=== PATIENT | female | born 1935 | race Caucasian/White ===

== ENCOUNTER 2017-05-15 22:51 | Inpatient (IN) | payer OTHER ==
[~2017-05-15] VITALS: Ht 167.6 cm; Wt 88.0 kg
[2017-05-15] MEDS ORDERED: SODIUM CHLORIDE 0.9% 1000ML 1,000 ML IV STA (23:11)
[2017-05-15] MEDS ORDERED: HYDROmorphone INJ 0.5 MG/0.5 ML SYR IV PRN (23:15)
[2017-05-15 23:28] LABS: BASO % 0.1 %; BASO ABS # 0.02 K/uL (0-0.2); EOS % 0.4 %; EOS ABS # 0.05 K/uL (0-0.5); HEMATOCRIT 42.3 % (37-47); HEMOGLOBIN 14.4 g/dL (12.0-16.0); IG# 0.04 K/uL (0.00-0.02); LYMPH % 16.1 %; LYMPH ABS # 2.27 K/uL (1.2-3.4); MEAN CELL VOLUME 98.8 fL (80-100); MEAN CORPUSCULAR HEMOGLOBIN 33.6 pg (25-34); MEAN PLATELET VOLUME 11.6 fL (7.4-10.4); MONO % 4.4 %; MONO ABS # 0.62 K/uL (0.11-0.59); NEUT % 78.7 %; PLATELET COUNT 173 K/uL (130-400); RED CELL DISTRIBUTION WIDTH CV 14.2 % (11.5-14.5); RED CELL DISTRIBUTION WIDTH SD 50.6 fL (36.4-46.3)
[2017-05-15 23:43] LABS: INR 1.1 (0.9-1.1)
[2017-05-15 23:53] LABS: BLOOD UREA NITROGEN 20 mg/dl (7-18); CALCIUM 9.4 mg/dl (8.5-10.1); CARBON DIOXIDE 24 mmol/L (21-32); CREATININE 1.29 mg/dl (0.60-1.20); GLUCOSE 118 mg/dl (70-99); POTASSIUM 4.1 mmol/L (3.5-5.1); SODIUM 141 mmol/L (136-145)
[2017-05-15 23:58] LABS: CKMB 1.8 ng/ml (0.5-3.6)
[2017-05-16] VITALS (7 sets, daily range): BP systolic 92–132; BP diastolic 56–80; PULSE 61–77; TEMP 36.5–36.9; O2SAT 95–99; Ht 167.6 cm; Wt 88.0 kg
--- NOTE | 2017-05-16 00:05 | EMERGENCY ROOM VISIT NOTE ---
History Report prepared by Eugene: Sridhar Anderson Under the Supervision of: Dr. Rui Horowitz M.D. First contact with patient: 22:58 Stated Complaint: FALL, L HIP PAIN History of Present Illness The patient is a 82 year old female who presents to the Emergency Room by EMS with complaints of constant left hip pain s/p fall occurring five hours ago. The patient rates her current pain as a 5/10 in severity (after being given Fentanyl en route). She states that she was unable to crawl to her phone until shortly prior to arrival. She notes that she has a history of double knee replacements, but has not had surgery on her hips before. The patient did not hit her head or lose consciousness during the fall. She denies any headache, neck or shoulder pain. She notes that she hit her left elbow on the fall as well , and then used her elbows to crawl to the phone after the fall. The patient states that her elbows feel "sore". Her most recent meal was 9 hours ago. She is not on any blood thinners. Source of History: patient Onset: Five hours ago Position: other (left hip) Symptom Intensity: 5/10 Timing: constant Associated Symptoms: No LOC, No headache, No neck pain Note: The patient denies any shoulder pain. She also complains of bilateral elbow pain. Review of Systems See HPI for pertinent positives & negatives. A total of 10 systems reviewed and were otherwise negative. Past Medical & Surgical Medical Problems: (1) Depression (2) Dyslipidemia (3) HTN (hypertension) (4) Sciatica Surgical Problems: (1) Knee joint replacement status Family History No pertinent family history stated. Social History Housing Status: lives alone Occupation Status: retired Current/Historical Medications Scheduled Aspirin (Aspirin Ec), 81 MG PO DAILY Atenolol (Tenormin), 25 MG PO BID Atorvastatin (Lipitor), 40 MG PO DAILY Esomeprazole Magnesium (Nexium), 20 MG PO DAILY Isosorbide Mononitrate Ext Rel (Imdur Ext Rel), 30 MG PO BID Raloxifene Hcl (Evista), 60 MG PO DAILY Scheduled PRN Doxepin (Sinequan), 25-50 MG PO HS PRN for Insomnia Melatonin (Melatonin Maximum Strengt), 1 TAB PO HS PRN for Sleep Allergies Coded Allergies: No Known Allergies (Unverified , 05/16/17) Physical Exam Vital Signs Date Time Temp Pulse Resp B/P (MAP) Pulse Ox O2 Delivery O2 Flow Rate FiO2 05/15/17 23:50 77 18 128/73 93 Nasal Cannula 2.0 05/15/17 23:33 86 18 132/81 90 Room Air 05/15/17 23:02 37.6 85 159/90 88 Room Air 05/15/17 23:01 93 Nasal Cannula 2.0 Physical Exam GENERAL: Patient is well appearing and in minimal distress. HEENT: No acute trauma, normocephalic atraumatic, mucous membranes moist, no nasal congestion, no scleral icterus. NECK: No stridor, no adenopathy, no meningismus, trachea is midline. LUNGS: No dyspnea. Clear to auscultation and equal bilaterally. No wheeze, no rhonchi. HEART: Regular rate and rhythm. No murmurs, rubs, gallops appreciated. ABDOMEN: Soft, nontender, bowel sounds positive, no masses appreciated, no peritonitis. BACK: No midline tenderness, no CVA tenderness EXTREMITIES: Shortened, and mildly externally rotated left leg. Severe pain with ROM of the left hip. Distal neurovascular exam intact. Pressure bruising over bilateral elbows. NEUROLOGIC: Alert and oriented, no acute motor or sensory deficits, no focal weakness, cranial nerves grossly intact. SKIN: No rash, no jaundice, no diaphoresis. Medical Decision & Procedures ER Provider Diagnostic Interpretation: X ray results are stated below per my interpretation: Chest: 1 view: No infiltrate, no effusion, normal cardiac border. Two View Pelvis X-ray interpreted by me: left femoral neck fracture with compression. No other acute fractures or dislocations appreciated. Four View Left Femur X-ray interpreted by me: old left knee arthroplasty noted with hardware impact. Impacted left femoral neck fracture. Laboratory Results Test 05/15/17 23:00 RDW Standard Deviation 50.6 fL (36.4-46.3) RDW Coefficient of Variation 14.2 % (11.5-14.5) White Blood Count 14.10 K/uL (4.8-10.8) Red Blood Count 4.28 M/uL (4.2-5.4) Hemoglobin 14.4 g/dL (12.0-16.0) Hematocrit 42.3 % (37-47) Mean Corpuscular Volume 98.8 fL (80-100) Mean Corpuscular Hemoglobin 33.6 pg (25-34) Mean Corpuscular Hemoglobin Concent 34.0 g/dl (32-36) Platelet Count 173 K/uL (130-400) Mean Platelet Volume 11.6 fL (7.4-10.4) Neutrophils (%) (Auto) 78.7 % Lymphocytes (%) (Auto) 16.1 % Monocytes (%) (Auto) 4.4 % Eosinophils (%) (Auto) 0.4 % Basophils (%) (Auto) 0.1 % Neutrophils # (Auto) 11.10 K/uL (1.4-6.5) Lymphocytes # (Auto) 2.27 K/uL (1.2-3.4) Monocytes # (Auto) 0.62 K/uL (0.11-0.59) Eosinophils # (Auto) 0.05 K/uL (0-0.5) Basophils # (Auto) 0.02 K/uL (0-0.2) Immature Granulocyte % (Auto) 0.3 % Immature Granulocyte # (Auto) 0.04 K/uL (0.00-0.02) Prothrombin Time 11.1 SECONDS (9.0-12.0) Prothromb Time International Ratio 1.1 (0.9-1.1) Activated Partial Thromboplast Time 25.0 SECONDS (21.0-31.0) Partial Thromboplastin Ratio 1.0 Est Creatinine Clear Calc Drug Dose 38.2 ml/min Magnesium Level 1.8 mg/dl (1.8-2.4) Total Bilirubin 0.5 mg/dl (0.2-1) Direct Bilirubin 0.1 mg/dl (0-0.2) Aspartate Amino Transf (AST/SGOT) 25 U/L (15-37) Alanine Aminotransferase (ALT/SGPT) 18 U/L (12-78) Alkaline Phosphatase 76 U/L (45-117) Total Creatine Kinase 110 U/L (26-192) Creatine Kinase MB 1.8 ng/ml (0.5-3.6) Creatine Kinase MB Ratio 1.6 (0-3.0) Troponin I < 0.015 ng/ml (0-0.045) Total Protein 7.1 gm/dl (6.4-8.2) Albumin 4.1 gm/dl (3.4-5.0) 25-Hydroxy Vitamin D Total 56.2 ng/ml (30-100) Procalcitonin < 0.05 ng/ml (0-0.5) Thyroid Stimulating Hormone (TSH) 1.900 uIu/ml (0.300-4.500) Laboratory results as reviewed by me. Medications Administered Medications (Trade) Dose Ordered Sig/Ameya Route Start Time Stop Time Status Last Admin Dose Admin Hydromorphone HCl (Dilaudid Inj) 0.5 mg Q30M PRN IV 05/15/17 23:15 05/16/17 01:17 DC 05/15/17 23:25 0.5 MG Sodium Chloride 1,000 ml @ 75 mls/hr [id number] STAT IV 05/15/17 23:11 05/16/17 02:30 DC 05/15/17 23:27 75 MLS/HR ECG Indication: other (fall) Rate (beats per minute): 82 Rhythm: normal sinus Findings: no acute ischemic change, no ectopy ED Course 2300: The patient was evaluated in room B5. A complete history and physical exam was performed. 2311: Ordered Sodium Chloride 1000 ml @ 75 mls/hr IV. 2315: Ordered Dilaudid Inj 0.5 mg IV. 0000: Upon reevaluation, the patient is resting comfortably. Discussed results and treatment plan with the patient. She verbalized understanding and agreement with the treatment plan. The patient will be evaluated for further management. Medical Decision 82 yr old pleasant female arrives with acute left hip pain s/p fall. Laid on ground a few hours with some pressure bruising to elbows but no evidence rhabdo and other than hip no other injuries. No headache/neck pain nor head/neck injury. She is adamant this was a mechanical fall. Hip with left fem neck fracture. Pain controlled prior to arrival by EMS with fentanyl. Medication Reconcilliation Current Medication List: was personally reviewed by me Blood Pressure Screening Patient's blood pressure: Normal blood pressure Blood pressure disposition: Did not require urgent referral Consults Time Called: [id number] Consulting Physician: Dr. Chai Cm Hospitalist Returned Call: [phone] Discussed the patient's case. The patient will be evaluated for further treatment and disposition. Impression Primary Impression: Fracture of femoral neck, left Scribe Attestation The scribe's documentation has been prepared under my direction and personally reviewed by me in its entirety. I confirm that the note above accurately reflects all work, treatment, procedures, and medical decision making performed by me. Departure Information Dispostion Being Evaluated By Hospitalist Referrals No Doctor, Assigned (PCP) Problem Qualifiers Primary Impression: Fracture of femoral neck, left Encounter type: initial encounter Fracture type: closed Qualified Codes: S72.002A - Fracture of unspecified part of neck of left femur, initial encounter for closed fracture
[2017-05-16] MEDS ORDERED: ATEN25TA PO (00:11)
[2017-05-16] MEDS ORDERED: ESOM20CA PO (00:11)
[2017-05-16] MEDS ORDERED: MELATAB2 PO (00:11)
[2017-05-16] MEDS ORDERED: ATOR-24 PO (00:11)
[2017-05-16] MEDS ORDERED: SNQ/25 PO (00:11)
[2017-05-16] MEDS ORDERED: RALO60TA30 PO (00:11)
[2017-05-16] MEDS ORDERED: ISOS30TA3 PO (00:11)
[2017-05-16] MEDS ORDERED: ASPI81TA28 PO (00:11)
[2017-05-16] MEDS ORDERED: ACETAMINOPHEN 325 MG TAB PO ONE (00:17)
[2017-05-16] MEDS ORDERED: ACETAMINOPHEN 325 MG TAB PO PRN ×2 (00:30→18:45)
[2017-05-16] MEDS ORDERED: NALOXONE HCL 0.4 MG/1 ML VIAL/CARP IV PRN ×2 (01:15→18:45)
[2017-05-16] MEDS ORDERED: MAGNESIUM HYDROXIDE SUSP 30 ML UDC PO PRN ×2 (01:15→18:45)
[2017-05-16] MEDS ORDERED: SOD PHOSPHATE/SOD BIPHOSPHATE ENEMA 132 ML BTL PR PRN (01:15)
[2017-05-16] MEDS ORDERED: PROCHLORPERAZINE INJ 5 MG in SYRINGE 4 ML IV PRN (01:15)
[2017-05-16] MEDS ORDERED: POLYETHYLENE (MIRALAX) 17 GM PACK PO PRN (01:15)
[2017-05-16] MEDS ORDERED: BISACODYL 10 MG SUPP PR PRN (01:15)
[2017-05-16] MEDS ORDERED: ACETAMINOPHEN 325 MG TAB ONE (01:20)
[2017-05-16 01:26] LABS: ALKALINE PHOSPHATASE 76 U/L (45-117); ALT/SGPT 18 U/L (12-78)
[2017-05-16 01:30] LABS: ALBUMIN 4.1 gm/dl (3.4-5.0); AST/SGOT 25 U/L (15-37); TOTAL PROTEIN 7.1 gm/dl (6.4-8.2)
--- NOTE | 2017-05-16 03:07 | HISTORY & PHYSICAL EXAMINATION ---
DATE OF ADMISSION: 05/16/2017 PRIMARY CARE DOCTOR: Dr. Jacobs. CHIEF COMPLAINT: Left hip pain. HISTORY OF PRESENT ILLNESS: History obtained from patient and records. Medical history significant for hypertension, CAD, past tobacco abuse, arthritis, chronic renal insufficiency (baseline creatinine of 1.3-1.4). Patient got up from the couch around 6:00 p.m. last night, landed on her left hip, unable to walk, excruciating L hip pain. No chest pain, no shortness of breath, no syncope. Patient brought to the Emergency Room. MEDICAL HISTORY: As above. Patient developed delirium during confinement last year at the [facility] for knee surgery. Patient sees [place] [facility] apprentice cook, Dr. Isbell. Last visit was October 2016. A 2D echo done. According to her, TTE was "good" - although potential discussion about need for cardiac catheterization on next visit this year. SURGERIES: Knee surgery. HOME MEDICATIONS: Include melatonin, Avista, aspirin, atenolol, Lipitor, Sinequan, Nexium, Imdur ER. ALLERGIES: No known drug allergies. FAMILY HISTORY: Heart disease. PERSONAL AND SOCIAL HISTORY: Past tobacco use. No chronic intake of alcoholic beverages. Retired psychiatric nurse. REVIEW OF SYSTEMS: As per HPI. All 10 systems reviewed. All other ROS negative. FUNCTIONAL HISTORY: Still able to do housework without chest pain or shortness of breath. PHYSICAL EXAMINATION: VITAL SIGNS: Blood pressure was noted to be 130/81, pulse rate 86, RR 18, temperature 37.6, sats 90 on room air. GENERAL: Noted to be pleasant, no respiratory distress, looks younger for her stated age. Obese. SKIN: Normal color, warm. HEENT: Healed burn wound on the left orbit. Ono palpebral conjunctiva. No ptosis. Dry mucosa. NECK: Short, no tenderness. CHEST: Decreased effort. No tenderness. HEART: Regular rate and rhythm, no murmur. ABDOMEN: Soft, nontender. EXTREMITIES: Tenderness on the left hip/rotation noted, minimal LE edema. NEUROLOGIC: Coherent. No gross focality. LABORATORY DATA: Hemoglobin was noted to be 14.4, hematocrit 42.3, white cell count 14, platelets noted to be 173. Sodium 141, potassium 4.1, chloride 104, CO2 24, BUN 20, creatinine 1.2, glucose 118. Chest x-ray as per my interpretation atelectasis. EKG as per my interpretation, normal sinus rhythm. Q waves inferior leads Pelvic x-ray as per my interpretation left femoral fracture. ASSESSMENT: 1. Left femoral neck fracture secondary to mechanical fall. 2. Hypertension, stable. 3. Coronary artery disease as per records seems to be stable although need to clarify details of last outpatient [facility] visit 4. Past tobacco abuse. 5. Chronic renal insufficiency. Creatinine at baseline. 6. Fever spike, possibly from mild dehydration currently no obvious infection source rule out urinary traction infection PLAN: F Orthopedics consult RE left femoral neck fracture. Check UA We will need to obtain records from patient's apprentice cook's or PCP regarding recent outpatient Cardiology visit last year cardiac pending final medical evaluation. Continue home ASA for secondary CAD prevention. Continue home beta nazia. DVT prophylaxis, SCDs RE possible surgery. (Recommend pharmacologic anticoagulation with Heparin subQ once bleeding risk is deemed to be minimal and negligible pending Orthopedics evaluation. ) DNR MTDD
[2017-05-16] MEDS: SODIUM CHLORIDE 0.9% 1000ML 1,000 ML IV SCH ×3 (03:22→21:01)
[2017-05-16] MEDS: HYDROmorphone INJ 0.5 MG/0.5 ML SYR IV PRN ×2 (04:30→09:15)
[2017-05-16 06:07] LABS: BASO % 0.2 %; BASO ABS # 0.02 K/uL (0-0.2); EOS % 0.3 %; EOS ABS # 0.03 K/uL (0-0.5); HEMATOCRIT 37.5 % (37-47); HEMOGLOBIN 12.5 g/dL (12.0-16.0); IG# 0.01 K/uL (0.00-0.02); LYMPH % 27.3 %; MEAN CELL VOLUME 99.2 fL (80-100); MEAN CORPUSCULAR HEMOGLOBIN 33.1 pg (25-34); MEAN CORPUSCULAR HGB CONC 33.3 g/dl (32-36); MEAN PLATELET VOLUME 10.7 fL (7.4-10.4); MONO % 7.4 %; MONO ABS # 0.65 K/uL (0.11-0.59); NEUT % 64.7 %; NEUT ABS # 5.67 K/uL (1.4-6.5); PLATELET COUNT 146 K/uL (130-400); RED CELL DISTRIBUTION WIDTH CV 14.1 % (11.5-14.5); RED CELL DISTRIBUTION WIDTH SD 51.3 fL (36.4-46.3); WHITE BLOOD COUNT 8.78 K/uL (4.8-10.8)
--- NOTE | 2017-05-16 06:42 | DIAGNOSTIC IMAGING REPORT ---
L FEMUR 2 VIEWS ROUTINE, PELVIS 1 OR 2 VIEW ROUTINE HISTORY: 82 years-old Female fall left femur pain acute pelvis and left leg pain status post fall COMPARISON: None available TECHNIQUE: AP view of the pelvis with 2 views of the left femur FINDINGS: PELVIS: Calcifications within the right hemipelvis suggest calcified uterine fibroids measuring up to 2.0 cm. The bones appear moderately demineralized. Moderate degenerative changes of the bilateral hips. No pelvic ring fracture identified. Peripheral vascular disease. Acute fracture of the left proximal femur as below. FEMUR: Left knee total joint arthroplasty and prior patellar resurfacing appears unremarkable. There is an acute mildly impacted fracture involving the transcervical proximal left femur which is impacted approximately 1.6 cm. Mild associated soft tissue swelling. Right knee arthroplasty is partially imaged. IMPRESSION: 1. Acute mildly impacted transcervical fracture of the proximal left femur with mild associated soft tissue swelling. 2. No acute pelvic ring fracture identified. 3. Moderate degenerative changes of the bilateral hips. The above report was generated using voice recognition software. It may contain grammatical, syntax or spelling errors. Electronically signed by: Mc Acosta M.D. 05/16/2017 6:41 AM Dictated Date/Time: 05/16/2017 6:37 AM
--- NOTE | 2017-05-16 06:44 | DIAGNOSTIC IMAGING REPORT ---
CHEST ONE VIEW PORTABLE HISTORY: 82 years-old Female Pre-Op preoperative exam. No acute chest complaints COMPARISON: None available TECHNIQUE: Portable AP view of the chest FINDINGS: Cardiomediastinal and hilar silhouettes are within normal limits. Atherosclerosis of the aorta. Mild right hemidiaphragmatic elevation without pneumothorax, pleural effusion, focal airspace consolidation or overt pulmonary edema. Subtle linear opacities of the right hilar midlung and left lung base suggest areas of scarring or atelectasis. Bones appear grossly intact. IMPRESSION: No acute process. The above report was generated using voice recognition software. It may contain grammatical, syntax or spelling errors. Electronically signed by: Mc Acosta M.D. 05/16/2017 6:43 AM Dictated Date/Time: 05/16/2017 6:42 AM
[2017-05-16 06:48] LABS: CALCIUM 8.5 mg/dl (8.5-10.1); CREATININE 1.06 mg/dl (0.60-1.20); POTASSIUM 3.9 mmol/L (3.5-5.1)
[2017-05-16] MEDS: ASPIRIN 81 MG ECTAB PO SCH (09:07)
[2017-05-16] MEDS: ISOSORBIDE MONONITRATE 30 MG TABCR PO SCH ×2 (09:08→21:00)
[2017-05-16] MEDS: PANTOprazole SOD 40 MG TAB PO SCH (09:08)
[2017-05-16] MEDS: ATORVASTATIN 20 MG TAB PO SCH (09:08)
--- NOTE | 2017-05-16 10:54 | CONSULTATION REPORT ---
DATE OF CONSULTATION: 05/16/2017 CHIEF COMPLAINT: Left hip fracture. HISTORY OF PRESENT ILLNESS: Ms. Mg is a pleasant 82-year-old female who was in her usual state of health until yesterday afternoon. The patient tripped over a carpet at her home and fell onto her left hip. The patient was unable to get herself up. She was down for about 3 hours until she was able to get help. The patient was brought to the Emergency Room and found to have left hip fracture. The patient lives in a custodial apartment complex. She lives alone. She really has no family in the area. She typically is an independent ambulator. She does not require any assistive devices. She is not very active but is able to complete her ADLs without difficulty. PAST MEDICAL HISTORY: Hypertension, heart disease. She denies diabetes or history of DVT. PAST SURGICAL HISTORY: Bilateral total knee replacements. MEDICATIONS: Melatonin, Avista, aspirin, atenolol, Lipitor, Sinequan, Nexium and Imdur ER. ALLERGIES: None. SOCIAL HISTORY: The patient has a history of previous tobacco use. She denies any current alcohol or tobacco use at this time. Again, she lives in a single floor apartment. REVIEW OF SYSTEMS: See HPI. Ten other systems reviewed, all negative. PHYSICAL EXAMINATION: VITAL SIGNS: Height 66 inches, weight 194 pounds, BMI 31. GENERAL: This is a well-developed, well-nourished female who is alert and oriented x3. Mood and affect are appropriate. HEENT: Normocephalic, atraumatic. Mucous membranes are moist and intact. NECK: Supple without lymphadenopathy. HEART: Regular rate and rhythm without murmurs, rubs or gallops. LUNGS: Clear to auscultation without wheezes or rhonchi. ABDOMEN: Soft and nontender. Bowel sounds are equal and active. EXTREMITIES: No ecchymosis, redness or warmth. Thigh and calf are soft and nontender. She does have some tenderness over the lateral aspect of the hip and groin area. Range of motion is deferred due to fracture. She is neurovascularly intact. She has full dorsi and plantar flexion of the left foot. LABORATORY RESULTS: White blood count 8.78. INR 1.1. Urine is negative. X-RAY EXAMINATION: AP views of the pelvis show an impacted transcervical fracture of the left proximal femur. IMPRESSION: Left hip fracture. PLAN: The patient has been admitted for left hip fracture. She will require surgical fixation. The patient is currently n.p.o. We are awaiting cardiac clearance. Medical service is attempting to get her previous cardiac records. If she is cleared, we are ready to take her to the OR this afternoon. The patient does have a known history of arthritis in her hips; however, she is fairly independent at home.
--- NOTE | 2017-05-16 12:30 | Progress Note ---
Medicine Progress Note Date & Time of Visit: May 16, 2017 at 12:21. Subjective patient seen resting in bed, not in distress, pleasant states she has significant pain on the left hip when moving denies active chest pain, dyspnea, palpitations, dizziness, nausea states has intermittent left shoulder pain upon waking up in the morning, which reminds her of symptoms leading to a cardiac cath several years ago able to do aerobic exercises for about an hour 2x a week at [facility] since March 2017 without chest pain, unusual shortness of breath denies other symptoms Objective Last 8 Hrs Date Time Temp Pulse Resp B/P (MAP) Pulse Ox O2 Delivery O2 Flow Rate FiO2 05/16/17 08:37 Nasal Cannula 2.0 05/16/17 07:15 36.8 61 18 124/69 (87) 99 Nasal Cannula 2.0 Physical Exam: General- oriented x 3, not in distress, speaks in sentences with no effort Head- atraumatic Eyes- PERRL, EOMI, anicteric ENT- oropharynx clear Neck- supple, no JVD, no adenopathy, no thyromegaly Lungs- clear breath sounds bilaterally, no rales/wheezes Heart- normal rate, regular rhythm; no murmurs Abdomen- normal bowel sounds, soft, nontender Extremities- no pretibial edema, no calf tenderness; peripheral pulses intact Neuro- alert, oriented x 3; no gross focal neuro deficits Skin- warm & dry Laboratory Results: Last 24 Hours Test 05/15/17 23:00 05/16/17 01:12 05/16/17 01:41 05/16/17 05:50 White Blood Count 14.10 K/uL 8.78 K/uL Red Blood Count 4.28 M/uL 3.78 M/uL Hemoglobin 14.4 g/dL 12.5 g/dL Hematocrit 42.3 % 37.5 % Mean Corpuscular Volume 98.8 fL 99.2 fL Mean Corpuscular Hemoglobin 33.6 pg 33.1 pg Mean Corpuscular Hemoglobin Concent 34.0 g/dl 33.3 g/dl Platelet Count 173 K/uL 146 K/uL Mean Platelet Volume 11.6 fL 10.7 fL Neutrophils (%) (Auto) 78.7 % 64.7 % Lymphocytes (%) (Auto) 16.1 % 27.3 % Monocytes (%) (Auto) 4.4 % 7.4 % Eosinophils (%) (Auto) 0.4 % 0.3 % Basophils (%) (Auto) 0.1 % 0.2 % Neutrophils # (Auto) 11.10 K/uL 5.67 K/uL Lymphocytes # (Auto) 2.27 K/uL 2.40 K/uL Monocytes # (Auto) 0.62 K/uL 0.65 K/uL Eosinophils # (Auto) 0.05 K/uL 0.03 K/uL Basophils # (Auto) 0.02 K/uL 0.02 K/uL RDW Standard Deviation 50.6 fL 51.3 fL RDW Coefficient of Variation 14.2 % 14.1 % Immature Granulocyte % (Auto) 0.3 % 0.1 % Immature Granulocyte # (Auto) 0.04 K/uL 0.01 K/uL Prothrombin Time 11.1 SECONDS Prothromb Time International Ratio 1.1 Activated Partial Thromboplast Time 25.0 SECONDS Partial Thromboplastin Ratio 1.0 Sodium Level 141 mmol/L 140 mmol/L Potassium Level 4.1 mmol/L 3.9 mmol/L Chloride Level 109 mmol/L 110 mmol/L Carbon Dioxide Level 24 mmol/L 23 mmol/L Anion Gap 8.0 mmol/L 7.0 mmol/L Blood Urea Nitrogen 20 mg/dl 19 mg/dl Creatinine 1.29 mg/dl 1.06 mg/dl Est Creatinine Clear Calc Drug Dose 38.2 ml/min 46.5 ml/min Estimated GFR () 45.0 57.0 Estimated GFR (Non- 38.8 49.2 BUN/Creatinine Ratio 15.6 18.2 Random Glucose 118 mg/dl 104 mg/dl Calcium Level 9.4 mg/dl 8.5 mg/dl Magnesium Level 1.8 mg/dl Total Bilirubin 0.5 mg/dl Direct Bilirubin 0.1 mg/dl Aspartate Amino Transf (AST/SGOT) 25 U/L Alanine Aminotransferase (ALT/SGPT) 18 U/L Alkaline Phosphatase 76 U/L Total Creatine Kinase 110 U/L Creatine Kinase MB 1.8 ng/ml Creatine Kinase MB Ratio 1.6 Troponin I < 0.015 ng/ml Total Protein 7.1 gm/dl Albumin 4.1 gm/dl 25-Hydroxy Vitamin D Total 56.2 ng/ml Procalcitonin < 0.05 ng/ml Thyroid Stimulating Hormone (TSH) 1.900 uIu/ml Urine Color YELLOW Urine Appearance CLEAR Urine pH 5.0 Urine Specific [place] 1.021 Urine Protein NEG Urine Glucose (UA) NEG Urine Ketones NEG Urine Occult Blood NEG Urine Nitrite NEG Urine Bilirubin NEG Urine Urobilinogen NEG Urine Leukocyte Esterase NEG Lactic Acid Level 0.9 mmol/L Date/Time Source Procedure Growth Status 05/16/17 01:41 Blood Blood Culture Pending Received 05/16/17 01:30 Blood Blood Culture Pending Received 05/16/17 02:45 Nasal MRSA DNA Surveillance Screen - Final Specimen Negative for MRSA by DNA Probe Complete Assessment & Plan Left femoral neck fracture secondary to mechanical fall. - evaluated by Ortho recommending Surgical Intervention this afternoon pending medical clearance Cardiology will be consulted for pre-operative evaluation (details below) History of CAD, Stable Angina - most recent outpatient Cardiology Visit with Dr. Isbell dated 12/2016 attached to the front of patient's physical chart - last stress test: 08/20/14: moderate risk ischemia last cath 2014: EF 50%, LAD 30%, Ramus 70%, RCA 60-60% last echo 04/27/16: EF 55%, minimal MR, AR, TR and NJ Grade 1 diastolic dysfunction - ekg: no signs of acute ischemia - will consult Cardiology for pre-operative evaluation - continued on usual Aspirin, Atorvastatin, Imdur, Atenolol Hypertension, stable. - will monitor in addition to medications above, continue Amlodipine hold Triam/HCTZ to avoid dehydration CKD 3 - Creatinine at baseline. Low Grade Fever - from fracture? dehydration? - no recurrence no signs and symptoms of infection Past tobacco abuse. Current Inpatient Medications: Current Inpatient Medications Medications (Trade) Dose Ordered Sig/Ameya Route Start Time Stop Time Status Last Admin Dose Admin Acetaminophen (Tylenol Tab) 650 mg Q6H PRN PO 05/16/17 00:30 06/15/17 00:29 Sodium Chloride 1,000 ml @ 60 mls/hr [id number] IV 05/16/17 03:00 06/15/17 02:59 05/16/17 03:22 60 MLS/HR Naloxone HCl (Narcan Inj) 0.1 mg PRN PRN IV 05/16/17 01:15 06/15/17 01:14 Senna/Docusate Sodium (Senokot S Tab) 2 tab HS PO 05/16/17 21:00 06/15/17 20:59 Polyethylene (Miralax Powder Packet) 17 gm DAILY PRN PO 05/16/17 01:15 06/15/17 01:14 Magnesium Hydroxide (Milk Of Magnesia Susp) 30 ml DAILY PRN PO 05/16/17 01:15 06/15/17 01:14 Bisacodyl (Dulcolax Supp) 10 mg DAILY PRN NJ 05/16/17 01:15 06/15/17 01:14 Sodium Biphosphate/ Sodium Phosphate (Fleet Enema) 132 ml PRN PRN NJ 05/16/17 01:15 Prochlorperazine Edisylate 5 mg/ Syringe 5 ml @ 5 mls/min Q6H PRN IV 05/16/17 01:15 06/15/17 01:14 Tramadol HCl (Ultram Tab) not relieved by tylenol @ Q6H PRN PO 05/16/17 01:15 06/15/17 01:14 Hydromorphone HCl (Dilaudid Inj) 0.5 mg Q3H PRN IV 05/16/17 01:15 05/30/17 01:14 05/16/17 09:15 0.5 MG Aspirin (Ecotrin Tab) 81 mg DAILY PO 05/16/17 09:00 06/15/17 08:59 05/16/17 09:07 81 MG Atenolol (Tenormin Tab) 25 mg BID PO 05/16/17 09:00 06/15/17 08:59 05/16/17 09:08 25 MG Atorvastatin Calcium (Lipitor Tab) 40 mg DAILY PO 05/16/17 09:00 06/15/17 08:59 05/16/17 09:08 40 MG Isosorbide Mononitrate (Imdur Ext Rel Tab) 30 mg BID PO 05/16/17 09:00 06/15/17 08:59 05/16/17 09:08 30 MG Pantoprazole Sodium (Protonix Tab) 40 mg QAM PO 05/16/17 09:00 06/15/17 08:59 05/16/17 09:08 40 MG Cefazolin Sodium 2000 mg/Dextrose 60 ml @ 100 mls/hr PREOP IV 05/17/17 06:00 05/18/17 05:59 UNV
[2017-05-16] MEDS ORDERED: BUPIVACAINE 0.5 % 5 MG/1 ML PF 10ML VIAL ONE (14:42)
[2017-05-16] MEDS ORDERED: ORTHO JOINT ANESTHETIC ONE (14:59)
[2017-05-16] MEDS ORDERED: POVIDONE-IODINE OP SOLN 30 ML BTL ONE (14:59)
[2017-05-16] MEDS ORDERED: BACITRACIN 50000 UNIT VIAL ONE (15:00)
--- NOTE | 2017-05-16 15:00 | Progress Note ---
Progress Note Date of Service May 16, 2017. Progress Note attending addendum patient evaluated by [employer] Dr. Keith patient at least moderate risk for cardio-pulmonary complications with planned orthopedic surgery no medical contraindication to proceed with surgery Marcos Pack MD
[2017-05-16] MEDS ORDERED: ROPIVACAINE 5MG/ML 30 ML 150 MG, BUPIVACAINE 0.5% MPF INJ 30 ML, EpINEphrine HCL INJ 0.... INFIL SCH ×8 (15:30)
--- NOTE | 2017-05-16 15:36 | CARDIOLOGY CONSULTATION ---
DATE OF CONSULTATION: 05/16/2017 CONSULTATION REQUESTED BY: Dr. Marcos Pack. REASON FOR CONSULTATION: Preop risk assessment. HISTORY OF PRESENT ILLNESS: Mrs. Mg is a very pleasant 82-year-old woman who is new to our cardiology practice. She presented to the [facility] late in the evening of 05/15/2017 with a complaint of severe left hip pain. The patient states that she was at home last night in her normal state of health when she got up from the couch, her foot got tangled and then she had a mechanical fall on her left side. Upon landing on the ground, she developed excruciating left hip pain and she was unable to walk. She was brought into the [facility] where a left hip fracture was confirmed. She was admitted to the orthopedic unit and planned for a possible ORIF. The patient does carry a cardiac history and follows with [facility] cardiology in [place]. I do have her aircraft landing gear inspector's most recent office visit from 01/11/2017 available to me at this time. Clinically, the patient states that she has been having chest discomfort at rest for the last month or so. She states it only occurs at rest and if anything improve, it improves with exertion. She states that she has been having a lot of neck pain and it seems to be radiating down to her back and into her chest and again this pain only occurs at rest and it actually can wake her up at night occasionally, but whenever she gets up and ambulates, the chest pain and back pain resolves on its own. Otherwise, she does not note any significant worsening shortness of breath. At her last visit with her primary aircraft landing gear inspector, a nuclear stress test was recommended for progressive dyspnea; however, the patient declined at that time stating that she would prefer to continue with medical therapy and she has been compliant with her medications ever since. PAST SURGICAL HISTORY: 1. Cardiac catheterization in August 2014 reportedly showing LAD with 30% disease, ramus with 70% and RCA with 60%-70% disease, EF was calculated as 50% at that time. 2. Left knee surgery for which the patient had significant amnesia afterwards, which was related to anesthesia. MEDICAL ILLNESSES: 1. 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 2. Hypertension. 3. Osteoporosis. 4. Remote tobacco use history. 5. Chronic renal insufficiency. FAMILY HISTORY: Noncontributory. SOCIAL HISTORY: The patient is a former smoker. Denies any alcohol or recreational drug use. She lives by herself at the [facility] [place] and strongly completes all of her ADLs without any significant limitation. ALLERGIES: No known drug allergies. MEDICATIONS AN OUTPATIENT: 1. Aspirin 81 mg daily. 2. Atenolol 25 mg b.i.d. 3. Atorvastatin 40 mg daily. 4. Imdur 30 mg b.i.d. 5. Evista daily. 6. Nexium daily. REVIEW OF SYSTEMS: As per HPI, all other review of systems reviewed and negative at this time. PHYSICAL EXAMINATION: VITALS: Temperature 36.8, pulse 61, respiratory rate 12, blood pressure 124/69. GENERAL: Awake, alert, oriented x3 in no acute distress. HEENT: Normocephalic, atraumatic. Pupils equal, round, and reactive to light and accommodation. Extraocular muscles intact. Anicteric sclerae. Moist mucous membranes. NECK: No JVD, no bruit. CARDIOVASCULAR: Regular. Positive S4. Normal S1 and S2. No S3. No significant murmurs, no rubs. PULMONARY: Clear to auscultation bilaterally. No rales, rhonchi, or wheezing. ABDOMEN: Bowel sounds x4, soft. No rebound, guarding, tenderness. No organomegaly. EXTREMITIES: Left hip is immobilized and painful at rest. No clubbing, cyanosis or edema. +2 pedal pulses bilaterally. SKIN: Warm and dry. TEST RESULTS: A 12-lead EKG performed in the Emergency Department independently reviewed at this time shows normal sinus rhythm at 82 beats per minute, normal axis, normal intervals, no signs of active ischemia, essentially normal study. Echocardiogram report as per her outpatient aircraft landing gear inspector stated echocardiogram on 04/27/2016 with an EF of 55%, minimal MR, AR, TR and AZ, grade 1 diastolic dysfunction is noted. IMPRESSION: 1. Preop risk assessment prior to undergoing hip fracture repair. 2. History of coronary artery disease with chronic stable angina. 3. Hypertension, controlled. RECOMMENDATIONS: It was my pleasure to see Mrs. Mg in consultation today. The patient was counseled that her symptoms of chest and back discomfort at rest are not classical for angina. So, given that fact along with the fact that she does have a history of nonobstructive disease, she was counseled that I would place her at a moderate to high risk for any adverse perioperative cardiovascular event with the risk being approximately 5%. She was further counseled that no further cardiac testing or intervention would further lower that risk at this time and would only delay her surgery and cause likely continued pain. The patient states that she understands, she is accepting that risk and wishes to proceed with the surgery. She states that she is in a great deal of pain right now and she very much wants to be able to walk for the rest of her life and states "If I , I ." So, no medication changes will be made at this time. She will be continued on her aspirin and beta nazia, which should not be held, which will help reduce her perioperative risk as well and we will follow her postoperatively. There is no benefit from delaying the surgery at this time from a cardiac standpoint.
[2017-05-16] MEDS ORDERED: MIDAZOLAM HCL 1 MG/ML 2ML VIAL ONE ×2 (16:24→17:12)
[2017-05-16] MEDS ORDERED: FENTANYL CITRATE INJ 50 MCG/1 ML 2 ML VIAL ONE (16:24)
[2017-05-16] MEDS ORDERED: CEFAZOLIN SOD 2000MG/15 ML IV PUSH IV ONE (16:27)
--- NOTE | 2017-05-16 16:34 | Progress Note ---
Progress Note Date of Service May 16, 2017. Progress Note Patient seen in pre op holding area. Patient's pain controlled. No acute issues. PE LLE NVSI +EHL/FHL/TA/GS SILT grossly, CR< 2 seconds, +2 DP pulse, compartments soft NT, skin intact A/P Displaced L femoral neck fracture 82 yo female with displaced right femoral neck fracture sustained after a fall. The patient was medically stabilized on 05/16/2017. I indicated the patient for left hip hemiarthroplasty. The patient and was informed of the risks and benefits of surgery, which included but not limited to infection, bleeding, blood clots, damage to nerves, vessels, bone and soft tissue, dislocation, leg length discrepancy, need for additional surgery and . The patients family collectively chose to move forward with surgical intervention and informed consent was obtained.
[2017-05-16] MEDS ORDERED: PROPOFOL IV EMULSION 10 MG/ML 20 ML VIAL IV ONE ×2 (17:33→17:59)
[2017-05-16] MEDS ORDERED: SODIUM CHLORIDE 0.9% INJ 10 ML VIAL ONE (17:33)
[2017-05-16] MEDS ORDERED: PHENYLEPHRINE HCL INJ 10 MG/ML VIAL ONE (17:33)
[2017-05-16] MEDS ORDERED: EpHEDrine SULFATE INJ 50 MG/ML AMP ONE (17:33)
[2017-05-16] MEDS ORDERED: LIDOCAINE HCL 2% 2 ML VIAL (20MG/ML) ONE (17:33)
[2017-05-16] MEDS ORDERED: ONDANSETRON INJ 2 MG/ML 2 ML VIAL ONE (17:36)
--- NOTE | 2017-05-16 18:35 | [facility] Post Operative Brief Note ---
Immediate Operative Summary Operative Date May 16, 2017. Pre-Operative Diagnosis Displaced Left femoral neck fracture Post-Operative Diagnosis Same Procedure(s) Performed Left hip hemiarthroplasty Surgeon Dr Chen Security System Installer Surgeon(s) Adolfo Hughes PA-C Estimated Blood Loss 200 Findings Consistent with Post-Op Diagnosis Fluids (cc crystalloids) 1200 Specimens a. Left femoral head Drains None Anesthesia Type MAC Spinal Regional Complication(s) none Disposition Disposition: Recovery Room / PACU
[2017-05-16] MEDS ORDERED: OXYCODONE HCL IR 5 MG TAB (IMMEDIATE RELEASE) PO PRN (18:45)
[2017-05-16] MEDS ORDERED: MoRPHine SULFATE 4 MG/ML 1 ML CARP\\VIAL IV PRN (18:45)
[2017-05-16] MEDS ORDERED: ONDANSETRON INJ 2 MG/ML 2 ML VIAL IV PRN (18:45)
[2017-05-16] MEDS ORDERED: ATROPINE SULFATE 0.1 MG/ML 5ML SYR IV PRN (19:30)
[2017-05-16] MEDS ORDERED: EpHEDrine SULFATE INJ 50 MG/ML AMP IV PRN (19:30)
--- NOTE | 2017-05-16 19:44 | DIAGNOSTIC IMAGING REPORT ---
L HIP UNILATERAL 2 VIEWS CLINICAL HISTORY: s/p left hip hemiarthroplasty COMPARISON: Pelvis and left femur radiographs May 15, 2017. FINDINGS: Alignment of the left hip arthroplasty is anatomic. There is no periprosthetic fracture or unexpected radiopaque foreign body. Skin josefina are present. There is soft tissue gas as expected. There is extensive vascular calcification. IMPRESSION: Expected findings following left hip arthroplasty. Electronically signed by: Lalito Avila M.D. 05/16/2017 7:42 PM Dictated Date/Time: 05/16/2017 7:42 PM
--- NOTE | 2017-05-16 20:36 | Anesthesiology Progress Note ---
Anesthesia Post Op Note Date & Time May 16, 2017 at 20:36 Vital Signs Pain Intensity: 0 Vital Signs Past 12 Hours Date Time Temp Pulse Resp B/P (MAP) Pulse Ox O2 Delivery O2 Flow Rate FiO2 05/16/17 20:23 36.9 77 16 94/57 (69) 96 Nasal Cannula 3.0 05/16/17 19:30 37.1 74 18 106/57 99 Nasal Cannula 4 05/16/17 19:20 37.1 71 18 101/68 100 Nasal Cannula 4 05/16/17 19:10 74 18 108/58 100 Oxymask 10 05/16/17 19:00 77 18 97/52 98 Oxymask 10 05/16/17 18:51 37.1 80 18 95/46 95 Oxymask 10 05/16/17 16:10 36.7 76 16 114/86 (95) 95 Room Air 05/16/17 15:30 Room Air 05/16/17 08:37 Nasal Cannula 2.0 Notes Mental Status: alert / awake / arousable, participated in evaluation Pt Amnestic to Procedure: Yes Nausea / Vomiting: adequately controlled Pain: adequately controlled Airway Patency, RR, SpO2: stable & adequate BP & HR: stable & adequate Hydration State: stable & adequate Neuraxial Anesthesia: was administered, sensory block is resolving Anesthetic Complications: no major complications apparent
--- NOTE | 2017-05-16 20:51 | Orthopedic Progress Note ---
Orthopedic Progress Note Date of Service May 16, 2017. Subjective Additional Notes: Postoperative progress note Patient seen at bedside, comfortable, no acute issues, pain well controlled. Still feeling effects of spinal anesthesia Objective LLE limited secondary to spinal block, vascular intact, +2 DP pulse, compartments soft NT, dressing cdi Date Time Temp Pulse Resp B/P (MAP) Pulse Ox O2 Delivery O2 Flow Rate FiO2 05/16/17 20:23 36.9 77 16 94/57 (69) 96 Nasal Cannula 3.0 05/16/17 19:30 37.1 74 18 106/57 99 Nasal Cannula 4 05/16/17 19:20 37.1 71 18 101/68 100 Nasal Cannula 4 05/16/17 19:10 74 18 108/58 100 Oxymask 10 05/16/17 19:00 77 18 97/52 98 Oxymask 10 05/16/17 18:51 37.1 80 18 95/46 95 Oxymask 10 05/16/17 16:10 36.7 76 16 114/86 (95) 95 Room Air 05/16/17 15:30 Room Air 05/16/17 08:37 Nasal Cannula 2.0 05/16/17 07:15 36.8 61 18 124/69 (87) 99 Nasal Cannula 2.0 05/16/17 02:00 Nasal Cannula 2.0 05/16/17 02:00 36.8 70 18 132/80 (97) 95 Nasal Cannula 2.0 05/16/17 01:30 37.6 80 18 121/59 96 05/16/17 01:26 80 18 121/59 96 Nasal Cannula 2.0 05/15/17 23:50 77 18 128/73 93 Nasal Cannula 2.0 05/15/17 23:33 86 18 132/81 90 Room Air 05/15/17 23:02 37.6 85 159/90 88 Room Air 05/15/17 23:01 93 Nasal Cannula 2.0 Laboratory Results 24 Hours: Test 05/15/17 23:00 05/16/17 05:50 White Blood Count 14.10 K/uL 8.78 K/uL Red Blood Count 4.28 M/uL 3.78 M/uL Hemoglobin 14.4 g/dL 12.5 g/dL Hematocrit 42.3 % 37.5 % Mean Corpuscular Volume 98.8 fL 99.2 fL Mean Corpuscular Hemoglobin 33.6 pg 33.1 pg Mean Corpuscular Hemoglobin Concent 34.0 g/dl 33.3 g/dl Platelet Count 173 K/uL 146 K/uL Mean Platelet Volume 11.6 fL 10.7 fL Neutrophils (%) (Auto) 78.7 % 64.7 % Lymphocytes (%) (Auto) 16.1 % 27.3 % Monocytes (%) (Auto) 4.4 % 7.4 % Eosinophils (%) (Auto) 0.4 % 0.3 % Basophils (%) (Auto) 0.1 % 0.2 % Neutrophils # (Auto) 11.10 K/uL 5.67 K/uL Lymphocytes # (Auto) 2.27 K/uL 2.40 K/uL Monocytes # (Auto) 0.62 K/uL 0.65 K/uL Eosinophils # (Auto) 0.05 K/uL 0.03 K/uL Basophils # (Auto) 0.02 K/uL 0.02 K/uL Prothromb Time International Ratio 1.1 Prothrombin Time 11.1 SECONDS Assessment & Plan Assessment: s/p L Hip Hemiarthroplasty Plan: -Ancef x 24 -DVT ppx - ASA BID -WBAT -PT/OT -Posterior hip precautions -Pain controlled -Am labs -Post operative XR demonstrates well aligned well fixed prosthesis, no fracture/ dislocation
[2017-05-16] MEDS ORDERED: DOCUSATE SODIUM/SENNA 50/8.6MG TAB PO SCH (21:00)
[2017-05-16] MEDS: DOCUSATE SODIUM/SENNA 50/8.6MG TAB PO SCH (21:01)
[2017-05-16] MEDS ORDERED: ESCI1TAB10 PO (21:05)
[2017-05-16] MEDS: CEFAZOLIN IV 2,000 MG in SYRINGE 0 ML IV SCH (21:41)
[2017-05-17] VITALS (7 sets, daily range): BP systolic 103–125; BP diastolic 62–69; PULSE 71–88; TEMP 36.7–37.3; O2SAT 80–99
[2017-05-17] MEDS: HYDROmorphone INJ 0.5 MG/0.5 ML SYR IV PRN (00:27)
[2017-05-17] MEDS ORDERED: CEFAZOLIN 2000MG IV PUSH 10 ML IV SCH (06:00)
[2017-05-17] MEDS: CEFAZOLIN IV 2,000 MG in SYRINGE 0 ML IV SCH ×2 (06:00→14:32)
[2017-05-17] MEDS ORDERED: CEFAZOLIN IV 2,000 MG in DEXTROSE 5% 50ML 50 ML IV SCH (06:00)
[2017-05-17 06:28] LABS: HEMATOCRIT 33.3 % (37-47); HEMOGLOBIN 10.9 g/dL (12.0-16.0); MEAN CELL VOLUME 100.6 fL (80-100); MEAN CORPUSCULAR HEMOGLOBIN 32.9 pg (25-34); MEAN CORPUSCULAR HGB CONC 32.7 g/dl (32-36); MEAN PLATELET VOLUME 11.2 fL (7.4-10.4); PLATELET COUNT 125 K/uL (130-400); RED CELL DISTRIBUTION WIDTH CV 14.2 % (11.5-14.5); WHITE BLOOD COUNT 10.17 K/uL (4.8-10.8)
[2017-05-17 06:56] LABS: CALCIUM 8.4 mg/dl (8.5-10.1); CREATININE 0.93 mg/dl (0.60-1.20); POTASSIUM 4.1 mmol/L (3.5-5.1)
--- NOTE | 2017-05-17 08:04 | Orthopedic Progress Note ---
Orthopedic Progress Note Date of Service May 17, 2017. Subjective Post OP Day: 1 Reports: feeling well, Denies: chest pain, SOB, nausea / vomiting, light headedness, calf pain Objective calves soft nontender, N/V intact, hip located, capillary refill less than 2 sec., dressing C/D/I (SILVERLON), A&O x3, toes mobile Date Time Temp Pulse Resp B/P (MAP) Pulse Ox O2 Delivery O2 Flow Rate FiO2 05/17/17 03:04 36.8 71 16 118/65 (82) 99 Nasal Cannula 2.0 05/17/17 01:13 94 Nasal Cannula 2.0 05/17/17 01:13 80 Room Air 05/17/17 00:25 Room Air 05/16/17 22:50 36.8 76 16 118/70 (86) 97 Room Air 05/16/17 21:47 36.8 73 16 113/66 (82) 97 Nasal Cannula 2.0 05/16/17 20:56 36.5 68 16 92/56 (68) 97 Nasal Cannula 3.0 05/16/17 20:23 36.9 77 16 94/57 (69) 96 Nasal Cannula 3.0 05/16/17 19:50 95 Nasal Cannula 4.0 05/16/17 19:50 95 Nasal Cannula 4.0 05/16/17 19:50 36.7 73 16 98/60 (73) 95 Nasal Cannula 4.0 05/16/17 19:30 37.1 74 18 106/57 99 Nasal Cannula 4 05/16/17 19:20 37.1 71 18 101/68 100 Nasal Cannula 4 05/16/17 19:10 74 18 108/58 100 Oxymask 10 05/16/17 19:00 77 18 97/52 98 Oxymask 10 05/16/17 18:51 37.1 80 18 95/46 95 Oxymask 10 05/16/17 16:10 36.7 76 16 114/86 (95) 95 Room Air 05/16/17 15:30 Room Air 05/16/17 08:37 Nasal Cannula 2.0 Laboratory Results 24 Hours: Test 05/17/17 05:52 Hematocrit 33.3 % Hemoglobin 10.9 g/dL Assessment & Plan Assessment: POD#1 s/p L Hip Hemiarthroplasty Plan: -Ancef x 24 -DVT ppx - ASA BID -WBAT -PT/OT -Posterior hip precautions -Pain controlled -Am labs -Post operative XR demonstrates well aligned well fixed prosthesis, no fracture/ dislocation DC PLANNING-PATIENT CURRENTLY RESIDES AT [facility]. SHE WILL LIKELY RETURN THERE FOR SKILLED CARE.
[2017-05-17] MEDS: ASPIRIN/ALUM/MAGNES/CAL CARB 325 MG TAB PO SCH ×2 (09:00→20:41)
[2017-05-17] MEDS: PANTOprazole SOD 40 MG TAB PO SCH (09:11)
[2017-05-17] MEDS: ASPIRIN 81 MG ECTAB PO SCH (09:11)
[2017-05-17] MEDS: ISOSORBIDE MONONITRATE 30 MG TABCR PO SCH ×2 (09:12→20:41)
[2017-05-17] MEDS: ATORVASTATIN 20 MG TAB PO SCH (09:12)
[2017-05-17] MEDS: TRAMADOL HCL 50 MG TAB PO PRN ×2 (09:26→18:29)
[2017-05-17] MEDS ORDERED: ASPIRIN 81 MG ECTAB PO ONE (10:30)
[2017-05-17] MEDS ORDERED: DOXEPIN HCL 25 MG CAP PO PRN (10:30)
[2017-05-17] MEDS: SODIUM CHLORIDE 0.9% 1000ML 1,000 ML IV SCH ×2 (11:03→22:55)
--- NOTE | 2017-05-17 11:12 | Cardiology Follow-Up ---
Subjective Subjective Date of Service: May 17, 2017. Pt evaluation today including: conversation w/ patient, physical exam, chart review, lab review, review of studies, review of inpatient medication list Additional Details: Pt seen and examined, currently working with PT. States that she feels great after the surgery. Denies cp, sob, palpitations, lightheadedness or dizziness. Nursing reports some slight confusion but otherwise doing well. Problem List Medical Problems: (1) Fracture of femoral neck, left Status: Acute Review of Systems Respiratory: No see HPI, No cough, No sputum, No wheezing, No shortness of breath, No dyspnea on exertion, No dyspnea at rest, No hemoptysis, No problem reported Cardiac: No see HPI, No chest pain, No orthopnea, No PND, No edema, No claudication, No palpitations, No problem reported Objective Vital Signs Last Vital Signs Documentation Date Time Temp Pulse Resp B/P (MAP) Pulse Ox O2 Delivery O2 Flow Rate FiO2 05/17/17 07:30 36.7 82 16 116/68 (84) 94 Room Air 05/17/17 03:04 2.0 Physical Exam: General Appearance: WD/WN, no apparent distress Eyes: bilateral eyes normal inspection, bilateral eyes PERRL, bilateral eyes EOMI ENT: normal ENT inspection, hearing grossly normal, pharynx normal Neck: supple, no adenopathy, thyroid normal, no JVD, no carotid bruits, trachea midline Respiratory/Chest: chest non-tender, lungs clear, normal breath sounds, no respiratory distress, no accessory muscle use Cardiovascular: regular rate, rhythm, no edema, no JVD, no murmur, + gallop/S4 Abdomen: normal bowel sounds, non tender, soft, no organomegaly, no pulsatile mass Extremities: normal inspection, no pedal edema, no calf tenderness Neurologic/Psychiatric: sewing machine operator paper bags II-XII nml as tested, no motor/sensory deficits, alert, normal mood/affect, oriented x 3 Skin: normal color, warm/dry, no rash Lymphatic: no adenopathy Assessment and Plan 1. CAD stable hx of nonobstructive no symptoms at this time no medication changes necessary at this time, cont outpatient meds no restrictions from cardiac standpoint pt is interested in establishing with a local casting inspector my office will call to arrange follow up with me in 6-8 weeks
--- NOTE | 2017-05-17 13:07 | Anesthesiology Progress Note ---
Anesthesia Post Op Note Date & Time May 17, 2017 at 13:06 Vital Signs Pain Intensity: 8.0 Vital Signs Past 12 Hours Date Time Temp Pulse Resp B/P (MAP) Pulse Ox O2 Delivery O2 Flow Rate FiO2 05/17/17 11:10 36.9 84 16 104/65 (78) 92 Room Air 05/17/17 07:30 36.7 82 16 116/68 (84) 94 Room Air 05/17/17 07:25 Room Air 05/17/17 03:04 36.8 71 16 118/65 (82) 99 Nasal Cannula 2.0 05/17/17 01:13 94 Nasal Cannula 2.0 05/17/17 01:13 80 Room Air Notes Mental Status: alert / awake / arousable, participated in evaluation Pt Amnestic to Procedure: Yes Nausea / Vomiting: adequately controlled Pain: adequately controlled Airway Patency, RR, SpO2: stable & adequate BP & HR: stable & adequate Hydration State: stable & adequate Awake alert, pain tolerable with medication none at present. No complaints with anesthesia care.
--- NOTE | 2017-05-17 16:32 | Progress Note ---
Medicine Progress Note Date & Time of Visit: May 17, 2017 at 16:27. Subjective patient seen resting in bed, in good spirits states she feels fine overall ambulated in the halls today, tolerated well denies chest pain, dyspnea, dizziness, nausea pain well controlled denies other symptoms Objective Last 8 Hrs Date Time Temp Pulse Resp B/P (MAP) Pulse Ox O2 Delivery O2 Flow Rate FiO2 05/17/17 15:25 36.7 73 16 103/62 (76) 93 Room Air 05/17/17 11:10 36.9 84 16 104/65 (78) 92 Room Air Physical Exam: General- oriented x 3, not in distress, speaks in sentences with no effort Eyes- EOMI, anicteric Neck- supple, no JVD Lungs- clear BS bilaterally, no rales/wheezes Heart- normal rate, regular rhythm; no murmurs Abdomen- normal bowel sounds, soft, nontender Extremities- no pretibial edema, no calf tenderness; peripheral pulses intact Left Hip- dressing in place, mild surrounding edema, no tenderness, no discharge Neuro- alert, oriented x 3; no gross focal neuro deficits Skin- warm & dry Laboratory Results: Last 24 Hours Test 05/17/17 05:52 White Blood Count 10.17 K/uL Red Blood Count 3.31 M/uL Hemoglobin 10.9 g/dL Hematocrit 33.3 % Mean Corpuscular Volume 100.6 fL Mean Corpuscular Hemoglobin 32.9 pg Mean Corpuscular Hemoglobin Concent 32.7 g/dl RDW Standard Deviation 52.0 fL RDW Coefficient of Variation 14.2 % Platelet Count 125 K/uL Mean Platelet Volume 11.2 fL Sodium Level 140 mmol/L Potassium Level 4.1 mmol/L Chloride Level 109 mmol/L Carbon Dioxide Level 23 mmol/L Anion Gap 8.0 mmol/L Blood Urea Nitrogen 17 mg/dl Creatinine 0.93 mg/dl Est Creatinine Clear Calc Drug Dose 53.0 ml/min Estimated GFR () 66.8 Estimated GFR (Non- 57.6 BUN/Creatinine Ratio 18.6 Random Glucose 105 mg/dl Calcium Level 8.4 mg/dl Chemistry Specimen Hemolysis Assessment & Plan Left femoral neck fracture secondary to mechanical fall. - 05/16/17: s/p Left Hip Hemiarthroplasty doing well post op day 1 Hg down to 10, asymptomatic, monitor - on Aspirin 325mg BID for DVT prophylaxis PT/OT anticipate d/c back to [facility] History of CAD, Stable Angina - most recent outpatient Cardiology Visit with Dr. Isbell dated 12/2016 attached to the front of patient's physical chart - last stress test: 08/20/14: moderate risk ischemia last cath 2014: EF 50%, LAD 30%, Ramus 70%, RCA 60-60% last echo 04/27/16: EF 55%, minimal MR, AR, TR and SD Grade 1 diastolic dysfunction - ekg: no signs of acute ischemia - Dr. Keith consulted for Preop eval - continued on Aspirin (dose increased to 325mg BID for dvt prophylaxis, usually on 81mg po daily), Atorvastatin, Imdur, Atenolol Hypertension, stable. - monitor in addition to medications above, continue Amlodipine hold Triam/HCTZ to avoid dehydration CKD 3 - Creatinine at baseline. Low Grade Fever - from fracture? dehydration? - no recurrence no signs and symptoms of infection - resolved Past tobacco abuse. DVT prophylaxis ASA 325mg BID Disposition anticipate d/c to [facility] tomorrow ff up with Ortho ff up with PCP ff up with Environmental Compliance Engineer Current Inpatient Medications: Current Inpatient Medications Medications (Trade) Dose Ordered Sig/Ameya Route Start Time Stop Time Status Last Admin Dose Admin Acetaminophen (Tylenol Tab) 650 mg Q6H PRN PO 05/16/17 00:30 06/15/17 00:29 Naloxone HCl (Narcan Inj) 0.1 mg PRN PRN IV 05/16/17 01:15 06/15/17 01:14 Senna/Docusate Sodium (Senokot S Tab) 2 tab HS PO 05/16/17 21:00 06/15/17 20:59 05/16/17 21:01 2 TAB Polyethylene (Miralax Powder Packet) 17 gm DAILY PRN PO 05/16/17 01:15 06/15/17 01:14 Magnesium Hydroxide (Milk Of Magnesia Susp) 30 ml DAILY PRN PO 05/16/17 01:15 06/15/17 01:14 Bisacodyl (Dulcolax Supp) 10 mg DAILY PRN SD 05/16/17 01:15 06/15/17 01:14 Sodium Biphosphate/ Sodium Phosphate (Fleet Enema) 132 ml PRN PRN SD 05/16/17 01:15 Prochlorperazine Edisylate 5 mg/ Syringe 5 ml @ 5 mls/min Q6H PRN IV 05/16/17 01:15 06/15/17 01:14 Tramadol HCl (Ultram Tab) not relieved by tylenol @ Q6H PRN PO 05/16/17 01:15 06/15/17 01:14 05/17/17 09:26 50 MG Hydromorphone HCl (Dilaudid Inj) 0.5 mg Q3H PRN IV 05/16/17 01:15 05/30/17 01:14 05/17/17 00:27 0.5 MG Atenolol (Tenormin Tab) 25 mg BID PO 05/16/17 09:00 06/15/17 08:59 05/17/17 09:13 25 MG Atorvastatin Calcium (Lipitor Tab) 40 mg DAILY PO 05/16/17 09:00 06/15/17 08:59 05/17/17 09:12 40 MG Isosorbide Mononitrate (Imdur Ext Rel Tab) 30 mg BID PO 05/16/17 09:00 06/15/17 08:59 05/17/17 09:12 30 MG Pantoprazole Sodium (Protonix Tab) 40 mg QAM PO 05/16/17 09:00 06/15/17 08:59 05/17/17 09:11 40 MG Sodium Chloride 1,000 ml @ 75 mls/hr [id number] IV 05/16/17 19:30 06/15/17 19:29 05/17/17 11:03 75 MLS/HR Cefazolin Sodium 2000 mg/Syringe 10 ml @ 2.5 mls/min Q8H IV 05/16/17 22:00 05/17/17 21:59 05/17/17 14:32 2.5 MLS/MIN Ondansetron HCl (Zofran Inj) 4 mg Q6H PRN IV 05/16/17 18:45 06/15/17 18:44 Oxycodone HCl (Roxicodone Immediate Rel Tab) 5 mg Q4H PRN PO 05/16/17 18:45 05/30/17 18:44 Aspirin/Aluminum/ Magnesium/Ca Carb (Ascriptin Tab) 325 mg BID PO 05/16/17 21:00 06/15/17 20:59 Future hold Morphine Sulfate (MoRPHine SULFATE INJ) 4 mg Q4 PRN IV 05/16/17 18:45 05/30/17 18:44 Doxepin HCl (Sinequan Cap) 25 mg HS PRN PO 05/17/17 10:30 06/16/17 10:29 Escitalopram Oxalate (Lexapro Tab) 30 mg HS PO 05/17/17 21:00 06/16/17 20:59
[2017-05-17] MEDS: DOCUSATE SODIUM/SENNA 50/8.6MG TAB PO SCH (20:41)
[2017-05-17] MEDS ORDERED: ESCITALOPRAM OXALATE 20 MG TAB PO SCH (21:00)
[2017-05-18 07:00] VITALS: BP 125/71; PULSE 77; TEMP 37; O2SAT 94
--- NOTE | 2017-05-18 07:50 | Orthopedic Progress Note ---
Orthopedic Progress Note Date of Service May 18, 2017. Subjective Post OP Day: 2 Reports: feeling well, Denies: chest pain, SOB, nausea / vomiting, light headedness, calf pain Objective calves soft nontender, N/V intact, hip located, dressing C/D/I (Silverlon, mild bloody drainage), A&O x3, toes mobile Date Time Temp Pulse Resp B/P (MAP) Pulse Ox O2 Delivery O2 Flow Rate FiO2 05/18/17 07:20 Room Air 05/17/17 23:01 37.3 78 16 117/69 (85) 91 Room Air 05/17/17 20:40 88 125/69 (87) 05/17/17 19:45 Room Air 05/17/17 15:25 36.7 73 16 103/62 (76) 93 Room Air 05/17/17 11:10 36.9 84 16 104/65 (78) 92 Room Air Assessment & Plan Assessment: POD#2 s/p L Hip Hemiarthroplasty Plan: -Ancef x 24 -DVT ppx - ASA BID -WBAT -PT/OT -Posterior hip precautions -Pain controlled -Am labs -Post operative XR demonstrates well aligned well fixed prosthesis, no fracture/ dislocation -SILVERLON DRESSING MODERATELY SATURATED. CHANGE TODAY BEFORE DC DC PLANNING-PATIENT CURRENTLY RESIDES AT [facility]. HAS [employer] FOR SKILLED SERVICES. SHE DID WELL IN PT YESTERDAY. PENDING EVAL TODAY MAY DC HOME WITH HOME PT.
[2017-05-18] MEDS ORDERED: ASPI325T60 PO ×2 (07:53→15:47)
[2017-05-18] MEDS ORDERED: ACET-1257 PO (07:53)
[2017-05-18] MEDS ORDERED: ULT50X PO ×2 (07:53→15:47)
[2017-05-18] MEDS ORDERED: SENN8.6T7 PO (07:53)
--- NOTE | 2017-05-18 07:55 | Discharge Instructions ---
Discharge Instructions Date of Service May 18, 2017. Admission Reason for Admission: Fracture Of Femoral Neck, Left Discharge Discharge Diagnosis / Problem: SP LEFT BIPOLAR HEMIARTHROPLASTY Discharge Goals Goal(s): Decrease discomfort, Improve function, Increase independence Activity Recommendations Activity Limitations: per Instructions/Follow-up section . Instructions / Follow-Up Instructions / Follow-Up ACTIVITY RECOMMENDATIONS: SELF CARE INSTRUCTIONS AFTER TOTAL HIP REPLACEMENT Until the incision and soft tissues around your hip have healed, there is a possibility that the hip prosthesis could dislocate. A. Observe the following precautions to prevent dislocation: 1. Don't bend your hip greater than 90 degrees. 2. Avoid crossing your legs or ankles while standing or lying. 3. Sit with your feet placed 6 inches apart. 4. When sitting, keep your knees below your hips. Sit on a firm surface, avoid deep, soft chairs and couches. Use an elevated toilet seat in the bathroom. 5. Don't bend over at the waist. Use a long handled shoehorn and a sock aid to help you put on your shoes and socks. A education diagnostician can help you supervisor opening and picking objects that are too high or too low to reach. 6. Keep car riding to a minimum for at least one month after surgery. B. Your balance may be shaky for a while. Use crutches or a walker until directed by your doctor. C. Use hand rails when walking on stairs. D. Wear low heeled shoes with non-slip soles. E. Be sure that your floors are free of things that could trip you - throw rugs , electrical cords, small objects. Avoid wet and waxed floors, especially with crutches and canes. F. Try to walk several times a day with rest periods between. G. Continue with all the exercises taught to you in the hospital. Again, make walking a part of your daily routine. SPECIAL CARE INSTRUCTIONS: VERY IMPORTANT TO READ AND REVIEW A. You may still be at risk for phlebitis and blood clots. 1. Wear surgical stockings (ALANA hose) for 2 weeks after surgery to improve circulation and reduce swelling. 2. Take Aspirin 325 mg twice daily for 4 weeks or as directed by your doctor. This is your blood thinner. 3. High risk patients may be prescribed a stronger blood thinner if necessary. 4. If you are on Coumadin normally, your family doctor/revenue tax specialist should monitor your blood work. Expect a phone call the day of or the day after bloodwork is drawn to adjust your dosage. B. You must take antibiotics before having dental work, bladder, bowel and other surgery. Your doctor will provide you with a permanent card to carry describing precautions. C. Call [facility] if you have a fever, redness or swelling around the incision, cloudy drainage from incision, or sudden increase in pain in your hip, not relieved by your regular pain medication. D. Please call the office at if you have any concerns or questions about your operation or recovery. * YOU MAY SHOWER, NO TUB BATHS UNTIL CLEARED BY YOUR DOCTOR. * WEAR ALANA HOSE 20 HOURS PER DAY FOR 2 WEEKS. * YOU SHOULD USE A WALKER OR CRUTCHES FOR 2-4 WEEKS. THIS WILL HELP PREVENT STRAIN ON YOUR HIP MUSCLE AND ALLOW IT TO HEAL PROPERLY. YOU MAY WEAN TO A CANE TOLERATED. * MOST PATIENTS WILL HAVE HOME NURSING FOR THERAPY. IF YOU DECIDE TO DO OUTPATIENT PHYSICAL THERAPY, PLEASE SCHEDULE THIS 3 TIMES PER WEEK. * YOU MAY HAVE A LARGE, BAND-ENMANUEL LIKE DRESSING (SILVERON). THIS WILL REMAIN ON YOUR INCISION FOR 7 DAYS, THEN CAN BE REMOVED. IF INCISION IS LEAKING THROUGH DRESSING, PLEASE CALL THE OFFICE . FOLLOW UP VISIT: If appointment is not already scheduled: Please call [facility] to make a follow-up appointment for 2 weeks after your surgery at . Current Hospital Diet Patient's current hospital diet: AHA Diet (Heart Healthy) Discharge Diet Recommended Diet: Regular Diet Procedures Procedures Performed: Left hip hemiarthroplasty Pending Studies Studies pending at discharge: no Medical Emergencies . Who to Call and When: Medical Emergencies: If at any time you feel your situation is an emergency, please call [phone] immediately. . Non-Emergent Contact Non-Emergency issues call your: Surgeon . "Provider Documentation" section prepared by Jacki Hughes. . VTE Core Measure Inpt VTE Proph given/why not?: Other Anticoagulation, T.E.D. Stockings, SCD's
[2017-05-18] MEDS: ISOSORBIDE MONONITRATE 30 MG TABCR PO SCH (08:54)
[2017-05-18] MEDS: ATORVASTATIN 20 MG TAB PO SCH (08:54)
[2017-05-18] MEDS: PANTOprazole SOD 40 MG TAB PO SCH (08:55)
[2017-05-18] MEDS: ASPIRIN/ALUM/MAGNES/CAL CARB 325 MG TAB PO SCH (08:55)
[2017-05-18] MEDS: TRAMADOL HCL 50 MG TAB PO PRN (08:57)
[2017-05-18 09:55] LABS: BASO % 0.2 %; BASO ABS # 0.03 K/uL (0-0.2); EOS % 4.3 %; EOS ABS # 0.54 K/uL (0-0.5); HEMATOCRIT 32.5 % (37-47); HEMOGLOBIN 10.7 g/dL (12.0-16.0); IG# 0.03 K/uL (0.00-0.02); LYMPH % 18.6 %; LYMPH ABS # 2.32 K/uL (1.2-3.4); MEAN CELL VOLUME 99.4 fL (80-100); MEAN CORPUSCULAR HEMOGLOBIN 32.7 pg (25-34); MEAN CORPUSCULAR HGB CONC 32.9 g/dl (32-36); MEAN PLATELET VOLUME 11.1 fL (7.4-10.4); MONO % 5.3 %; MONO ABS # 0.66 K/uL (0.11-0.59); NEUT % 71.4 %; NEUT ABS # 8.86 K/uL (1.4-6.5); PLATELET COUNT 157 K/uL (130-400); RED CELL DISTRIBUTION WIDTH CV 14.3 % (11.5-14.5); RED CELL DISTRIBUTION WIDTH SD 51.2 fL (36.4-46.3); WHITE BLOOD COUNT 12.44 K/uL (4.8-10.8)
--- NOTE | 2017-05-18 10:57 | [facility] Operative Report ---
Operative Report Operative Date May 18, 2017. Pre-Operative Diagnosis Displaced Left femoral neck fracture Post-Operative Diagnosis Same Procedure(s) Performed Left hip hemiarthroplasty Surgeon Dr Chen Filling Winder Surgeon(s) Adolfo Hughes PA-C Estimated Blood Loss 200 Findings see dictated op note Fluids 1200 Specimens a. Left femoral head Drains none Anesthesia spinal Complication(s) None Disposition Recovery Room / PACU Indications 82 yo Female with displaced left femoral neck fracture sustained after a fall. The patient was medically stabilized on 05/16/2017. I indicated the patient for left hip hemiarthroplasty. The patient was informed of the risks and benefits of surgery, which included but not limited to infection, bleeding, blood clots, damage to nerves, vessels, bone and soft tissue, dislocation, leg length discrepancy, need for additional surgery and . The patient chose to move forward with surgical intervention and informed consent was obtained. Description of Procedure Following induction of adequate anesthesia, the patient was transferred to the OR table and placed in the lateral decubitus position with right hip down. The left hip was prepped and draped in usual sterile manner. A posterior incision was made. Subcutaneous tissue was sharply dissected. Electro cautery was used for hemostasis. Fascia was incised throughout the length of the wound and the piriformis was identified. A #1 Vicryl suture was used to tage the piriformis. The short external rotators were divided from the posterior aspect of the femur and a capsulotomy was performed. A second #1 Vicryl suture was used to tag the capsule. Next, I turned my attention to the femoral neck fracture. The fracture was relatively high on the calcar and decision was made to proceed with the oscillating saw and create the calcar osteotomy. This bone fragment was removed. Following this, tenaculum and cob elevater was utilized to remove the femoral head. The head was measured on the back table and the 50 mm femoral head was chosen as the size to be used. Next, attention was turned to the acetabulum which was found to have no significant arthritis. All bony debris was removed. A sponge was placed in the acetabulum. Attention was then turned to the proximal femur where box osteotome was used to gain access to the femoral canal. A canal finder and power lateralizing reamer were utilized to further open. Sequential raspings were taken up to a size 14, which was sunk completely and trial reduction was carried out and a 28+0 mm femoral head was chosen the size to be used with the 50 bipolar cup. Following a trial reduction, the hip was found to be stable to 45 degrees of internal rotation and 90 degrees of flexion with equal leg lengths. The calcar reamer was utilized to smooth the calcar and the instruments and trial components were removed. The hip was thoroughly irrigated with pulsatile irrigation. The canal was irrigated and dried, cement restrictor was placed and [place] cement was mixed. The size 14 low demand fracture stem was placed with a 12 mm centralizer and this was held in position well. All excess cement was removed and cement hardened. Following insertion of final stem component another trial reduction was carried out and again a +0 neck size was chosen as the size to be used. The final head and neck was impacted into position and the hip was reduced and stablity assess and was found to be stable to 45 degrees of internal rotation and 90 degrees of flexion. The wound was again irrigated. The [facility] joint mix was injected throughout the hip and the capsule was repaired using 5 fiberwire sutures through drill holes. Following this, the short external rotators were reapproximated to the posterior aspect of the femur also through drill holes and these were tied. Once again the wound was copiously irrigated with sterile saline solution. Fascia was closed using #1 Vicryl [id number] sutures, subcutaneous tissue was closed using 2- 0 vicryl, and skin was closed with josefina. Sterile dressings xeroform, 4x4's, abd's, foam tape were applied and abduction pillow placed between the legs. The patient tolerated the procedure well and was taken to recovery room in stable condition. Due to the complex nature of the procedure, the entire surgery was performed with the operational assistance of Rona Hughes PA-C. The access services assistant, under direct supervision, was involved in the actual performance of all aspects of the surgical procedure including hemostasis, tissue retraction and incision, instrument management, patient positioning, and wound closure. I attest to the content of the Intraoperative Record and any orders documented therein. Any exceptions are noted below. I attest to the content of the Intraoperative Record and any orders documented therein. Any exceptions are noted below.
--- NOTE | 2017-05-18 15:39 | Progress Note ---
Medicine Progress Note Date & Time of Visit: May 18, 2017 at 15:32. Subjective patient seen sitting up in bed, in good spirits states she feels well overall pain tolerable denies problems with walking denies chest pain, dyspnea, palpitations, dizziness no other symptoms states she is ready and would like to be discharged today Objective Physical Exam: General- oriented x 3, not in distress, speaks in sentences with no effort Eyes- anicteric Neck- no JVD Lungs- clear BS bilaterally,no wheezes, no rales Heart- normal rate, regular rhythm; no murmurs Abdomen- normal bowel sounds, soft, nontender Extremities- no pretibial edema, no calf tenderness; peripheral pulses intact Left Hip- dressing in place, mild surrounding edema, no tenderness, no discharge Neuro- alert, oriented x 3; no gross focal neuro deficits Skin- warm & dry Laboratory Results: Last 24 Hours Test 05/18/17 09:25 White Blood Count 12.44 K/uL Red Blood Count 3.27 M/uL Hemoglobin 10.7 g/dL Hematocrit 32.5 % Mean Corpuscular Volume 99.4 fL Mean Corpuscular Hemoglobin 32.7 pg Mean Corpuscular Hemoglobin Concent 32.9 g/dl Platelet Count 157 K/uL Mean Platelet Volume 11.1 fL Neutrophils (%) (Auto) 71.4 % Lymphocytes (%) (Auto) 18.6 % Monocytes (%) (Auto) 5.3 % Eosinophils (%) (Auto) 4.3 % Basophils (%) (Auto) 0.2 % Neutrophils # (Auto) 8.86 K/uL Lymphocytes # (Auto) 2.32 K/uL Monocytes # (Auto) 0.66 K/uL Eosinophils # (Auto) 0.54 K/uL Basophils # (Auto) 0.03 K/uL RDW Standard Deviation 51.2 fL RDW Coefficient of Variation 14.3 % Immature Granulocyte % (Auto) 0.2 % Immature Granulocyte # (Auto) 0.03 K/uL Assessment & Plan Left femoral neck fracture secondary to mechanical fall. - 05/16/17: s/p Left Hip Hemiarthroplasty doing well post op day 2 Hg down to 10, asymptomatic, monitor - on Aspirin 325mg BID for DVT prophylaxis x at least 4 weeks Tramadol PRN for pain continue home PT/OT - ff up with Ortho Dr. Marvin Chen in 1 week History of CAD, Stable Angina - most recent outpatient Cardiology Visit with Dr. Isbell dated 12/2016 attached to the front of patient's physical chart - last stress test: 08/20/14: moderate risk ischemia last cath 2014: EF 50%, LAD 30%, Ramus 70%, RCA 60-60% last echo 04/27/16: EF 55%, minimal MR, AR, TR and IN Grade 1 diastolic dysfunction - ekg: no signs of acute ischemia - Dr. Keith consulted for Preop eval - continued on Aspirin (dose increased to 325mg BID for dvt prophylaxis, usually on 81mg po daily), Atorvastatin, Imdur, Atenolol - ff up with [employer] as scheduled Hypertension, stable. - continue usual BP meds CKD 3 - Creatinine at baseline. Low Grade Fever - from fracture? dehydration? - no recurrence no signs and symptoms of infection - resolved Past tobacco abuse. DVT prophylaxis ASA 325mg BID x 4 weeks Disposition anticipate d/c to [facility] with PT OT ff up with Ortho Dr. Chen in 1 week ff up with PCP Dr. Aldridge in 1-2 weeks ff up with [employer] as scheduled Current Inpatient Medications: Current Inpatient Medications Medications (Trade) Dose Ordered Sig/Ameya Route Start Time Stop Time Status Last Admin Dose Admin Acetaminophen (Tylenol Tab) 650 mg Q6H PRN PO 05/16/17 00:30 06/15/17 00:29 Naloxone HCl (Narcan Inj) 0.1 mg PRN PRN IV 05/16/17 01:15 06/15/17 01:14 Senna/Docusate Sodium (Senokot S Tab) 2 tab HS PO 05/16/17 21:00 06/15/17 20:59 05/17/17 20:41 2 TAB Polyethylene (Miralax Powder Packet) 17 gm DAILY PRN PO 05/16/17 01:15 06/15/17 01:14 Magnesium Hydroxide (Milk Of Magnesia Susp) 30 ml DAILY PRN PO 05/16/17 01:15 06/15/17 01:14 Bisacodyl (Dulcolax Supp) 10 mg DAILY PRN IN 05/16/17 01:15 06/15/17 01:14 Sodium Biphosphate/ Sodium Phosphate (Fleet Enema) 132 ml PRN PRN IN 05/16/17 01:15 Prochlorperazine Edisylate 5 mg/ Syringe 5 ml @ 5 mls/min Q6H PRN IV 05/16/17 01:15 06/15/17 01:14 Tramadol HCl (Ultram Tab) not relieved by tylenol @ Q6H PRN PO 05/16/17 01:15 06/15/17 01:14 05/18/17 08:57 50 MG Hydromorphone HCl (Dilaudid Inj) 0.5 mg Q3H PRN IV 05/16/17 01:15 05/30/17 01:14 05/17/17 00:27 0.5 MG Atenolol (Tenormin Tab) 25 mg BID PO 05/16/17 09:00 06/15/17 08:59 05/18/17 08:54 25 MG Atorvastatin Calcium (Lipitor Tab) 40 mg DAILY PO 05/16/17 09:00 06/15/17 08:59 05/18/17 08:54 40 MG Isosorbide Mononitrate (Imdur Ext Rel Tab) 30 mg BID PO 05/16/17 09:00 06/15/17 08:59 05/18/17 08:54 30 MG Pantoprazole Sodium (Protonix Tab) 40 mg QAM PO 05/16/17 09:00 06/15/17 08:59 05/18/17 08:55 40 MG Ondansetron HCl (Zofran Inj) 4 mg Q6H PRN IV 05/16/17 18:45 06/15/17 18:44 Oxycodone HCl (Roxicodone Immediate Rel Tab) 5 mg Q4H PRN PO 05/16/17 18:45 05/30/17 18:44 Aspirin/Aluminum/ Magnesium/Ca Carb (Ascriptin Tab) 325 mg BID PO 05/16/17 21:00 06/15/17 20:59 Future hold 05/18/17 08:55 325 MG Morphine Sulfate (MoRPHine SULFATE INJ) 4 mg Q4 PRN IV 05/16/17 18:45 05/30/17 18:44 Doxepin HCl (Sinequan Cap) 25 mg HS PRN PO 05/17/17 10:30 06/16/17 10:29 Escitalopram Oxalate (Lexapro Tab) 30 mg HS PO 05/17/17 21:00 06/16/17 20:59 05/17/17 20:41 30 MG
[2017-05-18] MEDS ORDERED: ACET-1047 PO (15:47)
--- NOTE | 2017-05-18 15:53 | Discharge Summary ---
Discharge Summary Date of Service May 18, 2017. Discharge Summary Admission Date: May 16, 2017 at 01:01 Discharge Date: May 18, 2017 Discharge Disposition: Home with services Principal Diagnosis: Left femoral neck fracture secondary to mechanical fall. - 05/16/17: s/p Left Hip Hemiarthroplasty Secondary Diagnoses/Problems: Please refer to hospital course below. Procedures: Left hip hemiarthroplasty Consultations: General Surgery Dr. Leong Pending Studies/Follow-Up: Please refer to hospital course below. Medication Reconciliation New Medications: Acetaminophen (Mapap) 325 Mg Tab 650 MG PO Q6H PRN for Pain or Fever for 30 Days, #20 Aspirin Buffered (Case Carb-Mag (Tri-Buffered Aspirin) 1 Tab Tab 325 MG PO BID for 30 Days, #60 TAB ALWAYS TAKE WITH FULL STOMACH Tramadol HCl (Tramadol HCl) 50 Mg Tab 50 MG PO Q6H PRN for Pain, #10 TAB 0 Refills Continued Medications: Atenolol (Tenormin) 25 Mg Tab 25 MG PO BID, TAB Atorvastatin (Lipitor) 40 Mg Tab 40 MG PO DAILY, TAB Doxepin (Sinequan) 25 Mg Cap 25-50 MG PO HS PRN for Insomnia, CAP Escitalopram Oxalate (Lexapro) 20 Mg Tab 30 MG PO HS, TAB Esomeprazole Magnesium (Nexium) 20 Mg Capcr 20 MG PO DAILY, CAP Isosorbide Mononitrate Ext Rel (Imdur Ext Rel) 30 Mg Ertab 30 MG PO BID, TAB Melatonin (Melatonin Maximum Strengt) 5 Mg Tab 1 TAB PO HS PRN for Sleep, #30 TAB 1 Refill Raloxifene Hcl (Evista) 60 Mg Tab 60 MG PO DAILY, TAB Discontinued Medications: Aspirin (Aspirin Ec) 81 Mg Tab 81 MG PO DAILY Admission Information HPI (per Admitting provider): DATE OF ADMISSION: 05/16/2017 PRIMARY CARE DOCTOR: Dr. Jacobs. CHIEF COMPLAINT: Left hip pain. HISTORY OF PRESENT ILLNESS: History obtained from patient and records. Medical history significant for hypertension, CAD, past tobacco abuse, arthritis, chronic renal insufficiency (baseline creatinine of 1.3-1.4). Patient got up from the couch around 6:00 p.m. last night, landed on her left hip, unable to walk, excruciating L hip pain. No chest pain, no shortness of breath, no syncope. Patient brought to the Emergency Room. Physical Exam (per Admitting): VITAL SIGNS: Blood pressure was noted to be 130/81, pulse rate 86, RR 18, temperature 37.6, sats 90 on room air. GENERAL: Noted to be pleasant, no respiratory distress, looks younger for her stated age. Obese. SKIN: Normal color, warm. HEENT: Healed burn wound on the left orbit. Myton palpebral conjunctiva. No ptosis. Dry mucosa. NECK: Short, no tenderness. CHEST: Decreased effort. No tenderness. HEART: Regular rate and rhythm, no murmur. ABDOMEN: Soft, nontender. EXTREMITIES: Tenderness on the left hip/rotation noted, minimal LE edema. NEUROLOGIC: Coherent. No gross focality. Hospital Course Left femoral neck fracture secondary to mechanical fall. - 05/16/17: s/p Left Hip Hemiarthroplasty doing well post op day 2 Hg down to 10, asymptomatic, monitor - on Aspirin 325mg BID for DVT prophylaxis x at least 4 weeks Tramadol PRN for pain continue home PT/OT - ff up with Ortho Dr. Joelle Leong in 1 week History of CAD, Stable Angina - most recent outpatient Cardiology Visit with Dr. Isbell dated 12/2016 attached to the front of patient's physical chart - last stress test: 08/20/14: moderate risk ischemia last cath 2014: EF 50%, LAD 30%, Ramus 70%, RCA 60-60% last echo 04/27/16: EF 55%, minimal MR, AR, TR and CT Grade 1 diastolic dysfunction - ekg: no signs of acute ischemia - Dr. Keith consulted for Preop eval - continued on Aspirin (dose increased to 325mg BID x 4 weeks for dvt prophylaxis, usually on 81mg po daily), Atorvastatin, Imdur, Atenolol - ff up with Hand Surgeon as scheduled Hypertension, stable. - continue usual BP meds CKD 3 - Creatinine at baseline. Low Grade Fever , resolved - from fracture? dehydration? - no recurrence no signs and symptoms of infection - resolved Past tobacco abuse. DVT prophylaxis ASA 325mg BID x 4 weeks Disposition anticipate d/c to [facility] with home PT OT ff up with Ortho Dr. Leong in 1 week ff up with PCP Dr. Aldridge in 1-2 weeks ff up with Hand Surgeon as scheduled Total time spent on discharge = 40 minutes This includes examination of the patient, discharge planning, medication reconciliation, and communication with other providers. Discharge Instructions Discharge Instructions Date of Service May 18, 2017. Admission Reason for Admission: Fracture Of Femoral Neck, Left Discharge Discharge Diagnosis / Problem: SP LEFT BIPOLAR HEMIARTHROPLASTY Discharge Goals Goal(s): Decrease discomfort, Improve function, Increase independence Activity Recommendations Activity Limitations: per Instructions/Follow-up section . Instructions / Follow-Up Instructions / Follow-Up ACTIVITY RECOMMENDATIONS: SELF CARE INSTRUCTIONS AFTER TOTAL HIP REPLACEMENT Until the incision and soft tissues around your hip have healed, there is a possibility that the hip prosthesis could dislocate. A. Observe the following precautions to prevent dislocation: 1. Don't bend your hip greater than 90 degrees. 2. Avoid crossing your legs or ankles while standing or lying. 3. Sit with your feet placed 6 inches apart. 4. When sitting, keep your knees below your hips. Sit on a firm surface, avoid deep, soft chairs and couches. Use an elevated toilet seat in the bathroom. 5. Don't bend over at the waist. Use a long handled shoehorn and a sock aid to help you put on your shoes and socks. A systems administrator can help you shrimp picker objects that are too high or too low to reach. 6. Keep car riding to a minimum for at least one month after surgery. B. Your balance may be shaky for a while. Use crutches or a walker until directed by your doctor. C. Use hand rails when walking on stairs. D. Wear low heeled shoes with non-slip soles. E. Be sure that your floors are free of things that could trip you - throw rugs , electrical cords, small objects. Avoid wet and waxed floors, especially with crutches and canes. F. Try to walk several times a day with rest periods between. G. Continue with all the exercises taught to you in the hospital. Again, make walking a part of your daily routine. SPECIAL CARE INSTRUCTIONS: VERY IMPORTANT TO READ AND REVIEW A. You may still be at risk for phlebitis and blood clots. 1. Wear surgical stockings (ALANA hose) for 2 weeks after surgery to improve circulation and reduce swelling. 2. Take Aspirin 325 mg twice daily for 4 weeks or as directed by your doctor. This is your blood thinner. 3. High risk patients may be prescribed a stronger blood thinner if necessary. 4. If you are on Coumadin normally, your family doctor/head coach should monitor your blood work. Expect a phone call the day of or the day after bloodwork is drawn to adjust your dosage. B. You must take antibiotics before having dental work, bladder, bowel and other surgery. Your doctor will provide you with a permanent card to carry describing precautions. C. Call [facility] if you have a fever, redness or swelling around the incision, cloudy drainage from incision, or sudden increase in pain in your hip, not relieved by your regular pain medication. D. Please call the office at if you have any concerns or questions about your operation or recovery. * YOU MAY SHOWER, NO TUB BATHS UNTIL CLEARED BY YOUR DOCTOR. * WEAR ALANA HOSE 20 HOURS PER DAY FOR 2 WEEKS. * YOU SHOULD USE A WALKER OR CRUTCHES FOR 2-4 WEEKS. THIS WILL HELP PREVENT STRAIN ON YOUR HIP MUSCLE AND ALLOW IT TO HEAL PROPERLY. YOU MAY WEAN TO A CANE TOLERATED. * MOST PATIENTS WILL HAVE HOME NURSING FOR THERAPY. IF YOU DECIDE TO DO OUTPATIENT PHYSICAL THERAPY, PLEASE SCHEDULE THIS 3 TIMES PER WEEK. * YOU MAY HAVE A LARGE, BAND-ENMANUEL LIKE DRESSING (SILVERON). THIS WILL REMAIN ON YOUR INCISION FOR 7 DAYS, THEN CAN BE REMOVED. IF INCISION IS LEAKING THROUGH DRESSING, PLEASE CALL THE OFFICE . FOLLOW UP VISIT: If appointment is not already scheduled: Please call [facility] to make a follow-up appointment for 2 weeks after your surgery at . Current Hospital Diet Patient's current hospital diet: AHA Diet (Heart Healthy) Discharge Diet Recommended Diet: Regular Diet Procedures Procedures Performed: Left hip hemiarthroplasty Pending Studies Studies pending at discharge: no Medical Emergencies . Who to Call and When: Medical Emergencies: If at any time you feel your situation is an emergency, please call [phone] immediately. . Non-Emergent Contact Non-Emergency issues call your: Surgeon . "Provider Documentation" section prepared by Jacki Hughes. . VTE Core Measure Inpt VTE Proph given/why not?: Other Anticoagulation, T.E.D. Stockings, SCD's Discharge Instructions Date of Service May 18, 2017. Admission Reason for Admission: Fracture Of Femoral Neck, Left Discharge Discharge Diagnosis / Problem: LEFT FEMORAL NECK FRACTURE, S/P SURGERY Discharge Goals Goal(s): Diagnostic testing, Therapeutic intervention Activity Recommendations Activity Limitations: as noted below (FOLLOW ORTHOPEDIC DISCHARGE INSTRUCTIONS) Lifting Limitations: until after follow-up appointment Exercise/Sports Limitations: until after follow-up appointment FOLLOW ORTHOPEDIC DISCHARGE INSTRUCTIONS Instructions / Follow-Up Instructions / Follow-Up FOLLOW ORTHOPEDIC DISCHARGE INSTRUCTIONS. PLEASE REVIEW YOUR NEW MEDICATION LIST AND FOLLOW INSTRUCTIONS CAREFULLY. TAKE ASPIRIN 324MG PO TWICE A DAY FOR 1 MONTH, THEN RESUME ASPIRIN 81MG PO DAILY. ALWAYS TAKE ASPIRIN WITH FULL STOMACH. CALL ORTHOPEDIC SURGEON IMMEDIATELY IF WITH INCREASING PAIN, SWELLING, BLEEDING , DISCHARGE, REDNESS ON THE SURGICAL SITE. CALL PRIMARY CARE PHYSICIAN OR RETURN TO ER IMMEDIATELY IF WITH CHEST PAIN, SHORTNESS OF BREATH, DIZZINESS, WEAKNESS. FOLLOW UP WITH ORTHOPEDIC SURGEON DR. JOELLE LEONG IN 1 WEEK. TEL NO. FOLLOW UP WITH PRIMARY CARE PHYSICIAN IN 1-2 WEEKS. FOLLOW UP WITH HORSE IDENTIFIER SCHEDULED. Current Hospital Diet Patient's current hospital diet: AHA Diet (Heart Healthy) Discharge Diet Recommended Diet: AHA Diet (Heart Healthy) Procedures Procedures Performed: Left hip hemiarthroplasty Pending Studies Studies pending at discharge: no Medical Emergencies . Who to Call and When: Medical Emergencies: If at any time you feel your situation is an emergency, please call [phone] immediately. . Non-Emergent Contact Non-Emergency issues call your: Primary Care Provider, Hand Surgeon, Surgeon Call Non-Emergent contact if: you have a fever, your pain is not controlled, your pain is worsening, wound has increased drainage, wound has increased redness, wound has increased pain, you have any medication questions . . "Provider Documentation" section prepared by Marcos Pack. . VTE Core Measure Inpt VTE Proph given/why not?: Other Anticoagulation (ASPIRIN 325MG BID), T.E.Teresa Stockings, SCD's [place] Drug Monitoring Program Search Results: patient reviewed within database, no issues identified
[2017-05-18 16:02] VITALS: BP 152/77; PULSE 83; TEMP 37; O2SAT 92
[2017-05-18 16:10] VITALS: BP 152/77; PULSE 83; TEMP 37; O2SAT 92
== END 2017-05-18 18:00 | disposition home health service (06) | DRG 470 ==
LOC: EDBD 22:51 → C.EDB 22:53 → C.3E 05-16 01:01 → ENRESERV 05-16 01:18
PROVIDERS: ADMIT Internal Medicine; ATTEND Internal Medicine
PROC: 0SRS0J9 Replacement of Left Hip Joint, Femoral Surface with Synthetic Substitute, Cemented, Open Approach (ICD-10-PCS; principal; 2017-05-18)
DX: S72.002A Fracture of unspecified part of neck of left femur, initial encounter for closed fracture (principal); I25.118 Atherosclerotic heart disease of native coronary artery with other forms of angina pectoris; N18.3 Chronic kidney disease, stage 3 (moderate); I12.9 Hypertensive chronic kidney disease with stage 1 through stage 4 chronic kidney disease, or unspecified chronic kidney disease; E78.5 Hyperlipidemia, unspecified; F32.9 Major depressive disorder, single episode, unspecified; Z79.82 Long term (current) use of aspirin; Z79.899 Other long term (current) drug therapy; Z66 Do not resuscitate; Z96.653 Presence of artificial knee joint, bilateral; W18.30XA Fall on same level, unspecified, initial encounter; Y92.008 Other place in unspecified non-institutional (private) residence as the place of occurrence of the external cause

== ENCOUNTER 2021-01-22 12:55 | Inpatient (IN) ==
[2021-01-22] MEDS ORDERED: SODIUM CHLORIDE 0.9% 500 ML IV STA (13:23)
[2021-01-22] MEDS ORDERED: ONDANSETRON INJ 2 MG/ML 2 ML VIAL IV STA (13:23)
--- NOTE | 2021-01-22 13:28 | Emergency Department Note ---
Impression & Plan Closed intertrochanteric fracture of right hip, Fall, Abrasion ED Provider Note NAME: ARJUN BRANTLEY AGE: 85 SEX: F : 1935 ARRIVES VIA: Ambulance INFORMANT: Patient, EMS ED PROVIDER(S): Vega Carter DO CHIEF COMPLAINT: right hip pain HPI: the patient is an 85-year-old female who presented to the emergency department after fall. The patient states that she was walking with a cart when she lost her footing and landed onto her right side. She has an abrasion to her right knee as well as her right elbow but she was unable to stand because of severe pain in her right hip. She states that she did not strike her head. She did not lose consciousness. She denies having any back or neck pain. She denies having any headache or abdominal pain. The patient was given fentanyl prior to arrival. She states that her pain is moderate to severe. The patient states that she is compliant with all of her usual medications. She states the pain is moderate to severe with any movement and improve now that she received pain medication and is remaining still. ROS: See above HPI for pertinent positives & negatives. A total of 10 systems reviewed and were otherwise negative. PAST MEDICAL HISTORY: See Below PAST SURGICAL HISTORY: See Below FAMILY HISTORY: See Below SOCIAL HISTORY: See Below HOME MEDICATIONS: See Below ALLERGIES: See Below VITALS: See Below PHYSICAL EXAMINATION: GENERAL: the patient is awake and alert. The patient is very anxious appearing and appears to be uncomfortable. EYES: The conjunctivae are clear. The pupils are round and reactive. EARS, NOSE, MOUTH AND THROAT: The nose is without any evidence of any deformity. NECK: The neck is nontender and supple. RESPIRATORY: Normal respiratory effort is noted there is no evidence of wheezing rhonchi or rales CARDIOVASCULAR: Regular rate and rhythm noted there no murmurs rubs or gallops normal S1 normal S2. GASTROINTESTINAL: The abdomen is soft. Abdomen is nontender. BACK: No midline tenderness or or step-off noted range of motion in flexion extension as well as rotation no signs of muscle spasm noted MUSCULOSKELETAL/EXTREMITIES: the right lower extremity is shortened and internally rotated. The patient resisted any movement with the right hip. SKIN: There is no obvious evidence of any rash. Pulses are symmetric in both feet. Skin is warm and dry. There is an abrasion to the knee as well as the right elbow. NEUROLOGIC: Patient is awake alert and oriented x3. MEDICAL DECISION MAKING: the patient is an 85-year-old female who presented to the emergency department after fall. The patient suffered a fracture. She was treated with IV pain medication in the emergency department. I discussed patient's laboratory and radiographic studies with her. I discussed her case with the on-call [facility] hospitalist. They've agreed to evaluate the patient in the emergency department for further management and disposition. I also discussed this case with the on- call orthopedic physician that was pickling solution maker for the patient's primary group. The patient was feeling much better on reevaluation. Triage Nursing notes reviewed. Prior medical records reviewed Vital Signs: reviewed and remarkable for elevated blood pressure. Differential diagnosis: Fracture, subluxation, dislocation, contusion, ligamentous injury, neurovascular, compartment syndrome, rhabdomyolysis, as well as other p athologies. ER treatment provided: See below Diagnostics interpreted by me: ECG: EKG was obtained in the emergency department. My interpretation is normal sinus rhythm and 61 bpm. There was no activity. There is no acute ST segment abnormalities noted. This was compared to a tracing from May 152017. No significant changes were noted. Cardiac Monitoring: An order was placed for continuous cardiac monitoring. The monitor shows a rate of 78 bpm with sinus rhythm. Laboratory studies: As stated above and show below. Imaging studies: See below Consultation(s): [facility] agreed to evaluate the patient in the emergency department for further management and disposition. They did ask that I reach out to orthopedics for consultation. 1600: I discussed this case with Dr. Giang who was pickling solution maker for the [facility] orthopedic group. He does recommend that the patient stay NPO after midnight and will likely be a better candidate for orthopedic intervention tomorrow if possible. Past Med/Surg History Medical History Anxiety CAD (coronary artery disease) CKD (chronic kidney disease), stage III Depression Dyslipidemia HTN (hypertension) Sciatica Surgical History Fracture of left hip requiring operative repair Knee joint replacement status Family History Other Heart disease Hypertension Social History Smoking Status: Former smoker Smoking End Date: 1999; Hx Alcohol Use: Yes (occasional ) Hx Substance Use: No Current Living Situation: Alone Feels Safe at Home: Yes Allergies Allergies Allergy/AdvReac Type Severity Reaction Status Date / Time No Known Allergies Allergy Unverified 01/22/21 15:57 Home Meds Home Medications Medication Instructions Recorded Confirmed aspirin 81 mg tablet 81 mg PO DAILY 01/22/21 01/22/21 atorvastatin 40 mg tablet 40 mg PO DAILY 01/22/21 01/22/21 cholecalciferol (vitamin D3) 25 25 mcg PO DAILY 01/22/21 01/22/21 mcg (1,000 unit) tablet (Vitamin D3) escitalopram oxalate 20 mg tablet 20 mg PO HS 01/22/21 01/22/21 gabapentin 100 mg capsule 100 mg PO HS 01/22/21 01/22/21 isosorbide mononitrate 30 mg 30 mg PO BID 01/22/21 01/22/21 tablet,extended release 24 hr metoprolol succinate 25 mg 25 mg PO HS 01/22/21 01/22/21 tablet,extended release 24 hr raloxifene 60 mg tablet 60 mg PO DAILY 01/22/21 01/22/21 trazodone 100 mg tablet 200 mg PO HS 01/22/21 01/22/21 Results & Data (ED) Vital Signs Vital Signs - 24 hr 01/22/21 12:47 01/22/21 13:52 01/22/21 13:55 Pulse Rate 65 71 Pulse Rate from SpO2 Sensor 67 Pulse Rhythm Regular Respiratory Rate 15 18 Blood Pressure 195/80 H Blood Pressure Mean 118 Pulse Oximetry 94 96 Oxygen Delivery Method Room Air Oxygen Flow Rate Sepsis Recent Fever Within 48 Hours No Sepsis New/Unexplained Change in Mental Status N/A Sepsis Action Taken by Nursing No Action Required 01/22/21 14:00 01/22/21 14:31 01/22/21 15:00 Pulse Rate 71 71 73 Pulse Rate from SpO2 Sensor 71 70 73 Pulse Rhythm Respiratory Rate 16 10 L 9 L Blood Pressure 176/94 H 183/90 H 199/97 H Blood Pressure Mean 121 121 131 Pulse Oximetry 93 91 98 Oxygen Delivery Method Oxygen Flow Rate Sepsis Recent Fever Within 48 Hours Sepsis New/Unexplained Change in Mental Status Sepsis Action Taken by Nursing 01/22/21 15:30 01/22/21 16:00 01/22/21 16:30 Pulse Rate 74 79 78 Pulse Rate from SpO2 Sensor 74 80 80 Pulse Rhythm Respiratory Rate 14 15 Blood Pressure 175/96 H 189/103 H 206/109 H Blood Pressure Mean 122 131 141 Pulse Oximetry 98 99 93 Oxygen Delivery Method Oxygen Flow Rate Sepsis Recent Fever Within 48 Hours Sepsis New/Unexplained Change in Mental Status Sepsis Action Taken by Nursing 01/22/21 16:54 Pulse Rate 78 Pulse Rate from SpO2 Sensor 99 H Pulse Rhythm Respiratory Rate 18 Blood Pressure 184/96 H Blood Pressure Mean 125 Pulse Oximetry 98 Oxygen Delivery Method Nasal Cannula Oxygen Flow Rate 2 Sepsis Recent Fever Within 48 Hours Sepsis New/Unexplained Change in Mental Status Sepsis Action Taken by [facility] Medications Current Medication List: was personally reviewed by me Laboratory Data Attestation: I reviewed the patient's lab results. Result diagrams: 01/22/21 14:05 01/22/21 14:05 Lab Results 01/22/21 01/22/21 01/22/21 Range/Units 13:30 13:40 13:40 WBC (4.8-10.8) K/uL RBC (4.2-5.4) M/uL Hgb (12.0-16.0) g/dL Hct (37-47) % MCV (80-100) fL MCH (25-34) pg MCHC (32-36) g/dL RDW Std Deviation (36.4-46.3) fL RDW Coeff of Brandan (11.5-14.5) % Plt Count (130-400) K/uL MPV (7.4-10.4) fL Immature Gran % (Auto) % Neut % (Auto) % Lymph % (Auto) % [place] % (Auto) % Eos % (Auto) % Baso % (Auto) % Neut # (Auto) (1.4-6.5) K/uL Lymph # (Auto) (1.2-3.4) K/uL [place] # (Auto) (0.11-0.59) K/uL Eos # (Auto) (0-0.5) K/uL Baso # (Auto) (0-0.2) K/uL Immature Gran # (Auto) (0.00-0.02) K/uL PT (9.0-12.0) Seconds INR (0.9-1.1) APTT (21.0-31.0) Seconds PTT Ratio Sodium (136-145) mmol/L Potassium (3.5-5.1) mmol/L Chloride (98-107) mmol/L Carbon Dioxide (21-32) mmol/L Anion Gap (3-11) BUN (7-18) mg/dl Creatinine (0.6-1.2) mg/dl Est Cr Clr Drug Dosing ml/min Est GFR ( Amer) ml/min Est GFR (Non-Af Amer) ml/min BUN/Creatinine Ratio (10-20) Glucose (70-99) mg/dl Calcium (8.5-10.1) mg/dl Total Bilirubin (0.2-1) mg/dl AST (15-37) U/L ALT (12-78) U/L Alkaline Phosphatase (45-117) U/L Troponin I (0-0.045) ng/ml Total Protein (6.4-8.2) gm/dl Albumin (3.4-5.0) gm/dl Globulin (2.5-4.0) gm/dl Albumin/Globulin Ratio (0.9-2) Lipase (73-393) U/L Specimen Hemolysis Urine Color Yellow Urine Appearance Clear (Clear) Urine pH 5.5 (4.5-7.5) Ur Specific [place] 1.021 (1.000-1.030) Urine Protein Negative (Negative) Urine Glucose (UA) Negative (Negative) Urine Ketones Negative (Negative) Urine Blood Negative (Negative) Urine Nitrite Negative (Negative) Urine Bilirubin Negative (Negative) Urine Urobilinogen Negative (Negative) Ur Leukocyte Esterase Negative (Negative) COVID-19 Eval Order Covid19 at [facility] SARS-CoV-2 (PCR) NEGATIVE (Negative) 01/22/21 01/22/21 01/22/21 Range/Units 14:05 14:05 14:05 WBC 8.45 (4.8-10.8) K/uL RBC 3.92 L (4.2-5.4) M/uL Hgb 12.4 (12.0-16.0) g/dL Hct 37.7 (37-47) % MCV 96.2 (80-100) fL MCH 31.6 (25-34) pg MCHC 32.9 (32-36) g/dL RDW Std Deviation 49.7 H (36.4-46.3) fL RDW Coeff of Brandan 14.1 (11.5-14.5) % Plt Count 173 (130-400) K/uL MPV 10.6 H (7.4-10.4) fL Immature Gran % (Auto) 0.2 % Neut % (Auto) 66.0 % Lymph % (Auto) 29.0 % [place] % (Auto) 3.9 % Eos % (Auto) 0.8 % Baso % (Auto) 0.1 % Neut # (Auto) 5.57 (1.4-6.5) K/uL Lymph # (Auto) 2.45 (1.2-3.4) K/uL [place] # (Auto) 0.33 (0.11-0.59) K/uL Eos # (Auto) 0.07 (0-0.5) K/uL Baso # (Auto) 0.01 (0-0.2) K/uL Immature Gran # (Auto) 0.02 (0.00-0.02) K/uL PT 10.8 (9.0-12.0) Seconds INR 1.1 (0.9-1.1) APTT 24.4 (21.0-31.0) Seconds PTT Ratio 0.9 Sodium 141 (136-145) mmol/L Potassium 4.4 (3.5-5.1) mmol/L Chloride 110 H (98-107) mmol/L Carbon Dioxide 26 (21-32) mmol/L Anion Gap 6.0 (3-11) BUN 20 H (7-18) mg/dl Creatinine 1.05 (0.6-1.2) mg/dl Est Cr Clr Drug Dosing 38.9 ml/min Est GFR ( Amer) 56.5 ml/min Est GFR (Non-Af Amer) 48.7 ml/min BUN/Creatinine Ratio 19.3 (10-20) Glucose 99 (70-99) mg/dl Calcium 8.8 (8.5-10.1) mg/dl Total Bilirubin 0.3 (0.2-1) mg/dl AST 19 (15-37) U/L ALT 16 (12-78) U/L Alkaline Phosphatase 60 (45-117) U/L Troponin I < 0.015 (0-0.045) ng/ml Total Protein 6.4 (6.4-8.2) gm/dl Albumin 3.4 (3.4-5.0) gm/dl Globulin 3.0 (2.5-4.0) gm/dl Albumin/Globulin Ratio 1.1 (0.9-2) Lipase 142 (73-393) U/L Specimen Hemolysis Urine Color Urine Appearance (Clear) Urine pH (4.5-7.5) Ur Specific [place] (1.000-1.030) Urine Protein (Negative) Urine Glucose (UA) (Negative) Urine Ketones (Negative) Urine Blood (Negative) Urine Nitrite (Negative) Urine Bilirubin (Negative) Urine Urobilinogen (Negative) Ur Leukocyte Esterase (Negative) COVID-19 Eval Order SARS-CoV-2 (PCR) (Negative) Administered Medications Discontinued Medications Sodium Chloride (Nss) 500 mls @ 999 mls/hr IV .Q31M STA Stop: 01/22/21 13:53 Last Admin: 01/22/21 14:12 Dose: 999 mls/hr Documented by: [id number] Morphine Sulfate (Morphine Sulfate 4 Mg/Ml 1 Ml Carp\Vial) 4 mg IV Q30M PRN PRN Reason: Pain Stop: 02/05/21 13:22 Last Admin: 01/22/21 17:00 Dose: 4 mg Documented by: [id number] Admin: 01/22/21 14:12 Dose: 4 mg Documented by: [id number] Ondansetron HCl (Ondansetron Inj 2 Mg/Ml 2 Ml Vial) 4 mg IV NOW STA Stop: 01/22/21 13:24 Last Admin: 01/22/21 14:12 Dose: 4 mg Documented by: [id number] Imaging Data Radiologist's Impression: Chest X-Ray 01/22/21 13:23 XR chest 1V portable INDICATION: MN ^Y ^Chest Pain . TECHNIQUE: Single frontal radiograph of the chest was obtained. Comparison: Comparison is made to chest one view 05/15/2017 FINDINGS: No lines and tubes are seen. The cardiomediastinal silhouette is normal. The lungs are clear. No evidence of pleural effusion or pneumothorax. IMPRESSION: No acute chest disease. ACT 112: Negative or not required by law. Electronically signed by: Kameron Gillette M.D. 01/22/2021 2:58 PM Hip/Pelvis X-Ray 01/22/21 13:23 XR hip RT 2V w pelvis INDICATION: MN ^JTF ^fall TECHNIQUE: 2 views of the right hip and single frontal view of the pelvis were obtained. Comparison: Comparison is made to pelvis one view 05/15/2017 FINDINGS: There is an acute intertrochanteric fracture of the right femur with apex lateral angulation. Patient is status post left total hip arthroplasty. The bones are anatomically aligned. Bones are osteopenic. Degenerative changes are noted. IMPRESSION: Acute intertrochanteric fracture of the right femur. ACT 112: Negative or not required by law. Electronically signed by: Kameron Gillette M.D. 01/22/2021 2:59 PM Knee X-Ray 01/22/21 13:23 XR knee RT 1 or 2V routine CLINICAL HISTORY: fall. Right knee pain. COMPARISON STUDY: None. FINDINGS: The bones are osteopenic. No acute fracture or dislocation within the right knee. There is a right total knee arthroplasty. The hardware appears intact. Mild anterior soft tissue swelling. No significant knee effusion. IMPRESSION: 1. No fracture or dislocation within the right knee. 2. Right total knee arthroplasty. ACT 112: Negative or not required by law. Electronically signed by: Harlan Belle M.D. 01/22/2021 3:[address] 01/22/21 13:[address] DOSE: 1035.87 mGy.cm HISTORY: fall TECHNIQUE: Multiaxial CT images of the cervical spine were performed and reformatted in the sagittal and coronal plane without the use of contrast. A dose lowering technique was utilized adhering to the principles of ALARA. COMPARISON: None. FINDINGS: No fractures. No subluxation. Prevertebral soft tissues and the C1-C2 interval are intact. No pneumothorax. Multinodular thyroid gland. Dominant nodule within the left lobe measures 3 cm. The C3-C5 vertebral bodies and facets are fused. Moderate degenerative changes throughout the cervical spine. IMPRESSION: 1. No fractures within the cervical spine. 2. Multinodular thyroid gland with a dominant nodule in the left lobe measuring 3 cm. ACT 112: Negative or not required by law. Electronically signed by: Harlan Belle M.D. 01/22/2021 2:[address] 01/22/21 13:54 CT head/brain wo con CLINICAL HISTORY: 85 years-old Female with fall. Acute head injury status post fall TECHNIQUE: Multiple axial CT images of the head were obtained without contrast. A dose lowering technique was utilized adhering to the principles of ALARA. COMPARISON: CT cervical spine of same day FINDINGS: No acute intracranial hemorrhage, midline shift, intracranial mass, hydrocephalus, territorial ischemia or abnormal extra-axial collection. Age- related involutional changes. Cerebral vascular calcifications. White matter hypodensities suggestive of chronic microvascular ischemic disease. The calvarium is intact. Prior bilateral lens repair. The paranasal sinuses, mastoid air cells, and middle ear cavities are clear. IMPRESSION: No acute intracranial abnormality or calvarial fracture. ACT 112: Negative or not required by law. The above report was generated using voice recognition software. It may contain grammatical, syntax or spelling errors. Electronically signed by: Nikhil Acosta M.D. 01/22/2021 2:34 PM Discharge Plan Visit Data Chief Complaint: Hip Pain Stated Complaint: R hip Pain w/ rotation/shortening s/p Fall ED Provider: Vega Carter Discharge Problem: Closed intertrochanteric fracture of right hip, Fall, Abrasion Patient Disposition: Admitted As Inpatient Forms Stand Alone Forms: My [facility] Prescriptions Prescriptions: No Action atorvastatin 40 mg tablet 40 mg PO DAILY RF: 0 isosorbide mononitrate 30 mg tablet extended release 24 hr 30 mg PO BID RF: 0 trazodone 100 mg tablet 200 mg PO HS RF: 0 raloxifene 60 mg tablet 60 mg PO DAILY RF: 0 aspirin 81 mg Tablet 81 mg PO DAILY RF: 0 gabapentin 100 mg capsule 100 mg PO HS RF: 0 metoprolol succinate 25 mg tablet extended release 24 hr 25 mg PO HS RF: 0 escitalopram oxalate 20 mg tablet 20 mg PO HS RF: 0 cholecalciferol (vitamin D3) [Vitamin D3] 25 mcg (1,000 unit) Tablet 25 mcg PO DAILY RF: 0 Referrals Referrals: Mauricio Jacobs [Primary Care Provider] -
[2021-01-22 14:00] LABS: Appearance Urine Clear (Clear); Bilirubin Urine Negative (Negative); Blood Urine Negative (Negative); Color Urine Yellow; Glucose Urine UA Negative (Negative); Ketones Urine Negative (Negative); Leukocyte Esterase Urine Negative (Negative); Nitrite Urine Negative (Negative); Protein Urine Negative (Negative); Specific Gravity Urine 1.021 (1.000-1.030); Urobilinogen Urine Negative (Negative); pH Urine 5.5 (4.5-7.5)
[2021-01-22] MEDS: MoRPHine SULFATE 4 MG/ML 1 ML CARP\\VIAL IV PRN ×2 (14:12→17:00)
[2021-01-22 14:16] LABS: Basophils # (auto) 0.01 K/uL (0-0.2); Basophils % (auto) 0.1 %; Eosinophils # (auto) 0.07 K/uL (0-0.5); Eosinophils % (auto) 0.8 %; Hematocrit (blood only) 37.7 % (37-47); Hemoglobin 12.4 g/dL (12.0-16.0); Immature Granulocytes # (auto) 0.02 K/uL (0.00-0.02); Immature Granulocytes % (auto) 0.2 %; Lymphocytes # (auto) 2.45 K/uL (1.2-3.4); Mean Corpuscular Hemoglobin 31.6 pg (25-34); Mean Corpuscular Hgb Conc 32.9 g/dL (32-36); Mean Corpuscular Volume 96.2 fL (80-100); Mean Platelet Volume 10.6 fL (7.4-10.4); Monocytes # (auto) 0.33 K/uL (0.11-0.59); Monocytes % (auto) 3.9 %; Neutrophils # (auto) 5.57 K/uL (1.4-6.5); Platelet Count 173 K/uL (130-400); RDW Coefficient of Variation 14.1 % (11.5-14.5); RDW Standard Deviation 49.7 fL (36.4-46.3); Red Blood Count 3.92 M/uL (4.2-5.4); White Blood Count 8.45 K/uL (4.8-10.8)
[2021-01-22 14:30] LABS: INR 1.1 (0.9-1.1); Partial Thromboplastin Ratio 0.9; Partial Thromboplastin Time 24.4 Seconds (21.0-31.0); Prothrombin Time 10.8 Seconds (9.0-12.0)
--- NOTE | 2021-01-22 14:35 | CT Scan Report ---
CT head/brain wo con CLINICAL HISTORY: 85 years-old Female with fall. Acute head injury status post fall TECHNIQUE: Multiple axial CT images of the head were obtained without contrast. A dose lowering tech nique was utilized adhering to the principles of ALARA. COMPARISON: CT cervical spine of same day FINDINGS: No acute intracranial hemorrhage, midline shift, intracranial mass, hydrocephalus, territorial ischem ia or abnormal extra-axial collection. Age-related involutional changes. Cerebral vascular calcificat ions. White matter hypodensities suggestive of chronic microvascular ischemic disease. The calvarium is intact. Prior bilateral lens repair. The paranasal sinuses, mastoid air cells, and m iddle ear cavities are clear. IMPRESSION: No acute intracranial abnormality or calvarial fracture. ACT 112: Negative or not required by law. The above report was generated using voice recognition software. It may contain grammatical, syntax o r spelling errors. Electronically signed by: Nikhil Acosta M.D. 01/22/2021 2:34 PM
--- NOTE | 2021-01-22 14:38 | CT Scan Report ---
CERVICAL SPINE CT CT DOSE: 1035.87 mGy.cm HISTORY: fall TECHNIQUE: Multiaxial CT images of the cervical spine were performed and reformatted in the sagittal and coronal plane without the use of contrast. A dose lowering technique was utilized adhering to th e principles of ALARA. COMPARISON: None. FINDINGS: No fractures. No subluxation. Prevertebral soft tissues and the C1-C2 interval are intact. No pneumothorax. Multinodular thyroid gland. Dominant nodule within the left lobe measures 3 cm. The C3-C5 vertebral bodies and facets are fused. Moderate degenerative changes throughout the cervical sp ine. IMPRESSION: 1. No fractures within the cervical spine. 2. Multinodular thyroid gland with a dominant nodule in the left lobe measuring 3 cm. ACT 112: Negative or not required by law. Electronically signed by: Harlan Belle M.D. 01/22/2021 2:36 PM
[2021-01-22 14:43] LABS: Alanine Aminotransferase 16 U/L (12-78); Albumin Globulin Ratio 1.1 (0.9-2); Albumin Level 3.4 gm/dl (3.4-5.0); Alkaline Phosphatase 60 U/L (45-117); Aspartate Aminotransferase 19 U/L (15-37); BUN Creatinine Ratio 19.3 (10-20); Bilirubin,Total 0.3 mg/dl (0.2-1); Blood Urea Nitrogen 20 mg/dl (7-18); Calcium 8.8 mg/dl (8.5-10.1); Carbon Dioxide 26 mmol/L (21-32); Chloride 110 mmol/L (98-107); Creatinine Clr Calc Pharmacy 38.9 ml/min; Est GFR (African American) 56.5 ml/min; Est GFR (Non-African American) 48.7 ml/min; Glucose 99 mg/dl (70-99); Lipase 142 U/L (73-393); Potassium 4.4 mmol/L (3.5-5.1); Sodium 141 mmol/L (136-145); Total Protein 6.4 gm/dl (6.4-8.2); Troponin I < 0.015 ng/ml (0-0.045)
--- NOTE | 2021-01-22 14:59 | XRay Report ---
XR chest 1V portable INDICATION: MN ^Y ^Chest Pain . TECHNIQUE: Single frontal radiograph of the chest was obtained. Comparison: Comparison is made to chest one view 05/15/2017 FINDINGS: No lines and tubes are seen. The cardiomediastinal silhouette is normal. The lungs are clear. No evid ence of pleural effusion or pneumothorax. IMPRESSION: No acute chest disease. ACT 112: Negative or not required by law. Electronically signed by: Kameron Gillette M.D. 01/22/2021 2:58 PM
--- NOTE | 2021-01-22 15:01 | XRay Report ---
XR hip RT 2V w pelvis INDICATION: MN ^JTF ^fall TECHNIQUE: 2 views of the right hip and single frontal view of the pelvis were obtained. Comparison: Comparison is made to pelvis one view 05/15/2017 FINDINGS: There is an acute intertrochanteric fracture of the right femur with apex lateral angulation. Patient is status post left total hip arthroplasty. The bones are anatomically aligned. Bones are osteopenic . Degenerative changes are noted. IMPRESSION: Acute intertrochanteric fracture of the right femur. ACT 112: Negative or not required by law. Electronically signed by: Kameron Gillette M.D. 01/22/2021 2:59 PM
--- NOTE | 2021-01-22 15:03 | XRay Report ---
XR knee RT 1 or 2V routine CLINICAL HISTORY: fall. Right knee pain. COMPARISON STUDY: None. FINDINGS: The bones are osteopenic. No acute fracture or dislocation within the right knee. There is a right total knee arthroplasty. The hardware appears intact. Mild anterior soft tissue swelling. No significant knee effusion. IMPRESSION: 1. No fracture or dislocation within the right knee. 2. Right total knee arthroplasty. ACT 112: Negative or not required by law. Electronically signed by: Harlan Belle M.D. 01/22/2021 3:02 PM
--- NOTE | 2021-01-22 15:29 | History & Physical Report ---
Date of Service January 22, 2021 Assessment & Plan (1) Closed right hip fracture: Plan: This is an 85-year-old female with PMH of CAD, hypertension, dyslipidemia, CKD 3, anxiety and depression who presents after fall outside of grocery store earlier today. Right hip/pelvis XR with acute intertrochanteric fracture of the right femur Head CT, cervical spine CT, R knee XR without evidence of acute abnormality or injury CXR without acute cardiopulmonary abnormality, EKG with normal sinus rhythm No further pre-operative work up indicated at this time Able to ambulate independently, complete ADLs Per Revised Cardiac Risk Index for Pre-Operative Risk, patient is a class 1 risk (3.9%) Consulted ortho surgery, anesthesia per hip fracture protocol Pre-op abx, IV fluids, pain control, fall precautions, NPO @ MN (2) CAD (coronary artery disease): Plan: History of mild to moderate three-vessel coronary disease on 2014 cardiac catheterization, medically managed Denies any history of MD or PCI in the past No chest pain, EKG with normal sinus rhythm Hold aspirin tomorrow morning preoperatively. Continue statin, Imdur, Toprol (3) HTN (hypertension): Plan: Blood pressure elevated in the setting of pain Optimize pain control, continue Imdur and Toprol As needed IV hydralazine every 6 hours for SBP greater than 160 (4) CKD (chronic kidney disease), stage III: Plan: Baseline creatinine around 1 Monitor with daily BMP (5) Dyslipidemia: Plan: Continue statin (6) Depression: (7) Anxiety: Plan: Continue Escitalopram, trazodone at bedtime DVT Ppx: SCDs Code status: DNR per discussion with patient PCP: Arlene Dispo: Admitted to med/surg Patient seen in collaboration with Dr. Pack. Please see addendum. History of Present Illness Chief Complaint: fall, RLE pain Primary Care Provider: Mauricio Jacobs This is an 85-year-old female with PMH of CAD, hypertension, dyslipidemia, CKD 3, anxiety and depression who presents after fall outside of grocery store earlier today. Patient took the bus to go grocery shopping at [employer] and was outside of the store getting a cart when she lost her footing and tripped, landing on her right side. Denies any loss of consciousness or head trauma. Was brought to ER by EMS for further evaluation. Currently endorsing 5/10 aching pain in thigh area of right leg radiating into groin. Denies any chest pain, s hortness of breath, nausea or vomiting. No fever, chills, lightheadedness, headache, abdominal pain, dysuria, diarrhea constipation. History of left hip fracture a few years ago repaired by [facility]. Lives alone in an apartment and feels she has become more forgetful over the past year. Allergies Allergy/AdvReac Type Severity Reaction Status Date / Time No Known Allergies Allergy Unverified 01/22/21 15:57 Home Medications Medication Instructions Recorded Confirmed Type aspirin 81 mg tablet 81 mg PO DAILY 01/22/21 01/22/21 History atorvastatin 40 mg tablet 40 mg PO DAILY 01/22/21 01/22/21 History cholecalciferol (vitamin D3) 25 25 mcg PO DAILY 01/22/21 01/22/21 History mcg (1,000 unit) tablet (Vitamin D3) escitalopram oxalate 20 mg tablet 20 mg PO HS 01/22/21 01/22/21 History gabapentin 100 mg capsule 100 mg PO HS 01/22/21 01/22/21 History isosorbide mononitrate 30 mg 30 mg PO BID 01/22/21 01/22/21 History tablet,extended release 24 hr metoprolol succinate 25 mg 25 mg PO HS 01/22/21 01/22/21 History tablet,extended release 24 hr raloxifene 60 mg tablet 60 mg PO DAILY 01/22/21 01/22/21 History trazodone 100 mg tablet 200 mg PO HS 01/22/21 01/22/21 History Past Med/Surg History Medical History Anxiety CAD (coronary artery disease) CKD (chronic kidney disease), stage III Depression Dyslipidemia HTN (hypertension) Osteoarthritis Sciatica Surgical History Fracture of left hip requiring operative repair 2015 Knee joint replacement status bilateral Family History Other Heart disease Hypertension Social History Smoking Status: Former smoker Cigarettes Per Day: quit in 2003; Smoking End Date: 1999; Second Hand Exposure: No; Do You Dip or Chew Tobacco: No; Tobacco Cessation Education Requested by Patient: No Hx Alcohol Use: Yes Alcohol type: beer Hx Substance Use: No Preferred Language: Greek Communication Ability: Effective Pre Fabricator Required: No Beliefs That Will Affect Care: None Current Living Situation: Alone Current Living Situation Comment: [facility]--indepdent living Other Information That Helps Us Care for You: No Feels Safe at Home: Yes Safety Concerns: Feels Safe At This Time Assistive Devices: Denture - Upper and Glasses Review of Systems Review of Systems: At least ten systems reviewed and negative except as noted in the HPI. Physical Exam Physical Exam: General Appearance: WD/WN, vitals as above, NAD, sitting up in bed, pleasant, conversing easily Head: normocephalic, atraumatic Eyes: normal inspection, PERRL, conjunctivae normal, anicteric sclerae ENT: external ear and nose normal, oropharynx normal Neck: normal visual inspection, trachea midline, no thyromegaly Respiratory: normal respiratory effort, lungs clear to auscultation, no wheeze, rales, rhonchi. No accessory muscle use Cardiovascular: regular rate, rhythm, no murmur, normal peripheral pulses, no BLE edema. Vessels: no JVD Chest: normal inspection of chest Abdomen/GI: normal bowel sounds, soft, nontender, no hepatosplenomegaly Extremities/Musculoskeletal: R leg externally rotated, TTP along medial aspect of thigh. No deformities noted. No cyanosis or clubbing, extremities motor strength 5/5 Neurologic: PERRL, EOMI, accommodation nl, no face palsy, no dysarthria, CN's II-XI intact bilaterally and moves all extremities Psychiatric: A+Ox3, euthymic affect Skin: no rashes, normal color, warm/dry Results & Data Results & Data ([facility]) Vital Signs (Past 12 Hours) Vital Signs Pulse Resp BP Pulse Ox 01/22/21 13:55 71 18 96 01/22/21 13:52 65 15 195/80 H 94 Laboratory Results Short CBC 01/22/21 Range/Units 14:05 WBC 8.45 (4.8-10.8) K/uL Hgb 12.4 (12.0-16.0) g/dL Hct 37.7 (37-47) % Plt Count 173 (130-400) K/uL BMP 01/22/21 14:05 Sodium 141 Potassium 4.4 Chloride 110 H Carbon Dioxide 26 BUN 20 H Creatinine 1.05 Glucose 99 Calcium 8.8 Cardiac Enzymes 01/22/21 Range/Units 14:05 Troponin I < 0.015 (0-0.045) ng/ml Liver Function 01/22/21 Range/Units 14:05 Total Bilirubin 0.3 (0.2-1) mg/dl AST 19 (15-37) U/L ALT 16 (12-78) U/L Alkaline Phosphatase 60 (45-117) U/L Albumin 3.4 (3.4-5.0) gm/dl Urine 01/22/21 Range/Units 13:30 Urine Color Yellow Urine Appearance Clear (Clear) Urine pH 5.5 (4.5-7.5) Ur Specific [place] 1.021 (1.000-1.030) Urine Protein Negative (Negative) Urine Glucose (UA) Negative (Negative) Diagnostic Findings Chest X-Ray 01/22/21 13:23 XR chest 1V portable INDICATION: MN ^Y ^Chest Pain . TECHNIQUE: Single frontal radiograph of the chest was obtained. Comparison: Comparison is made to chest one view 05/15/2017 FINDINGS: No lines and tubes are seen. The cardiomediastinal silhouette is normal. The lungs are clear. No evidence of pleural effusion or pneumothorax. IMPRESSION: No acute chest disease. ACT 112: Negative or not required by law. Electronically signed by: Kameron Gillette M.D. 01/22/2021 2:58 PM Hip/Pelvis X-Ray 01/22/21 13:23 XR hip RT 2V w pelvis INDICATION: MN ^JTF ^fall TECHNIQUE: 2 views of the right hip and single frontal view of the pelvis were obtained. Comparison: Comparison is made to pelvis one view 05/15/2017 FINDINGS: There is an acute intertrochanteric fracture of the right femur with apex lateral angulation. Patient is status post left total hip arthroplasty. The bones are anatomically aligned. Bones are osteopenic. Degenerative changes are noted. IMPRESSION: Acute intertrochanteric fracture of the right femur. ACT 112: Negative or not required by law. Electronically signed by: Kameron Gillette M.D. 01/22/2021 2:59 PM Knee X-Ray 01/22/21 13:23 XR knee RT 1 or 2V routine CLINICAL HISTORY: fall. Right knee pain. COMPARISON STUDY: None. FINDINGS: The bones are osteopenic. No acute fracture or dislocation within the right knee. There is a right total knee arthroplasty. The hardware appears intact. Mild anterior soft tissue swelling. No significant knee effusion. IMPRESSION: 1. No fracture or dislocation within the right knee. 2. Right total knee arthroplasty. ACT 112: Negative or not required by law. Electronically signed by: Harlan Belle M.D. 01/22/2021 3:[address] 01/22/21 13:[address] DOSE: 1035.87 mGy.cm HISTORY: fall TECHNIQUE: Multiaxial CT images of the cervical spine were performed and r eformatted in the sagittal and coronal plane without the use of contrast. A dose lowering technique was utilized adhering to the principles of ALARA. COMPARISON: None. FINDINGS: No fractures. No subluxation. Prevertebral soft tissues and the C1-C2 interval are intact. No pneumothorax. Multinodular thyroid gland. Dominant nodule within the left lobe measures 3 cm. The C3-C5 vertebral bodies and facets are fused. Moderate degenerative changes throughout the cervical spine. IMPRESSION: 1. No fractures within the cervical spine. 2. Multinodular thyroid gland with a dominant nodule in the left lobe measuring 3 cm. ACT 112: Negative or not required by law. Electronically signed by: Harlan Belle M.D. 01/22/2021 2:[address] 01/22/21 13:54 CT head/brain wo con CLINICAL HISTORY: 85 years-old Female with fall. Acute head injury status post fall TECHNIQUE: Multiple axial CT images of the head were obtained without contrast. A dose lowering technique was utilized adhering to the principles of ALARA. COMPARISON: CT cervical spine of same day FINDINGS: No acute intracranial hemorrhage, midline shift, intracranial mass, h ydrocephalus, territorial ischemia or abnormal extra-axial collection. Age- related involutional changes. Cerebral vascular calcifications. White matter hypodensities suggestive of chronic microvascular ischemic disease. The calvarium is intact. Prior bilateral lens repair. The paranasal sinuses, mastoid air cells, and middle ear cavities are clear. IMPRESSION: No acute intracranial abnormality or calvarial fracture. ACT 112: Negative or not required by law. The above report was generated using voice recognition software. It may contain grammatical, syntax or spelling errors. Electronically signed by: Nikhil Acosta M.D. 01/22/2021 2:34 PM ECG Additional Comments: NSR Supervising Physician Co-Signing Physician Notes Attending Addendum: delayed entry date of service noted above care coordinated with MERCEDES Dunn please refer to her notes for full details, I agree with her notes patient seen and examined, records reviewed by myself as well on exam, patient seen resting in bed, comfortable reports hip pain with movement, adequately controlled no chest pain, dyspnea, palpitations, dizziness able to walk, perform activities of daily living with no chest pain, dyspnea no other symptoms VS noted and reviewed oriented x 3, not in distress, speaks in sentences with no effort nor accessory muscle use normal rate, regular rhythm, no murmurs clear breath sounds bilaterally non distended, soft, nontender no bipedal edema, erythema, warmth no neuro deficits WBC 8.4 Hg 12.4 Crea 0.85 EKG: no signs of acute ischemia, infarct ASSESSMENT AND PLAN Acute intertrochanteric fracture of the right femur. no medical contraindication to proceed with orthopedic surgery patient moderate to high risk for cardio-pulmonary complications perioperatively given comorbidities, advanced age CAD history continue Metoprolol and Imdur other diagnoses and plan of care as per MERCEDES Dunn's notes Marcos Pack MD
[2021-01-22] MEDS ORDERED: traMADol HCL 50 MG TABLET PO STA (16:51)
[2021-01-22] MEDS ORDERED: ACETAMINOPHEN 500 MG TAB PO STA (16:51)
[2021-01-22] MEDS ORDERED: hydrALAZINE HCL 20 MG/ML VIAL IV PRN (16:51)
[2021-01-22] MEDS ORDERED: MAGNESIUM HYDROXIDE SUSP 30 ML UDC PO PRN (19:43)
[2021-01-22] MEDS ORDERED: NALOXONE HCL 0.4 MG/1 ML VIAL/CARP IV PRN (19:43)
[2021-01-22] MEDS ORDERED: ONDANSETRON INJ 2 MG/ML 2 ML VIAL IV PRN (19:43)
[2021-01-22] MEDS ORDERED: bisacodyL 10 MG SUPP PR PRN (19:43)
--- NOTE | 2021-01-22 20:24 | Anesthesiology Consultation ---
Date of Service January 22, 2021 Assessment & Plan Chart Review Chart Review: Acceptable Risk for Surgery and Patient NOT seen in Pre Admission Testing Consults Requested cardiac ASA ASA4 Proposed Anesthesia Risk / Benefits Reviewed With: PT / POA / Parent / Guardian, Accepts Plan and Informed Consent Obtained History Surgery Operation Date: 01/23/21 08:00 Proposed Procedures p Troch nail(Right) - Neto Giang, Height/Weight Height: 5 ft 6 in Weight: 76.4 kg Allergies Allergy/AdvReac Type Severity Reaction Status Date / Time No Known Allergies Allergy Unverified 01/22/21 15:57 Medications Home Medications Medication Instructions Recorded Confirmed Last Taken aspirin 81 mg tablet 81 mg PO DAILY 01/22/21 01/22/21 Unknown atorvastatin 40 mg tablet 40 mg PO DAILY 01/22/21 01/22/21 Unknown cholecalciferol (vitamin D3) 25 25 mcg PO DAILY 01/22/21 01/22/21 Unknown mcg (1,000 unit) tablet (Vitamin D3) escitalopram oxalate 20 mg tablet 20 mg PO HS 01/22/21 01/22/21 Unknown gabapentin 100 mg capsule 100 mg PO HS 01/22/21 01/22/21 Unknown isosorbide mononitrate 30 mg 30 mg PO BID 01/22/21 01/22/21 Unknown tablet,extended release 24 hr metoprolol succinate 25 mg 25 mg PO HS 01/22/21 01/22/21 Unknown tablet,extended release 24 hr raloxifene 60 mg tablet 60 mg PO DAILY 01/22/21 01/22/21 Unknown trazodone 100 mg tablet 200 mg PO HS 01/22/21 01/22/21 Unknown Active Medications Generic Name Dose Route Start Last Admin Trade Name Freq PRN Reason Stop Dose Admin Hydralazine HCl 5 mg 01/22/21 16:51 01/22/21 18:44 Hydralazine Hcl 20 Mg/Ml Vial IV 02/21/21 16:50 5 mg Q6 PRN Administration SBP >160 Past Medical History Medical History Anxiety CAD (coronary artery disease) CKD (chronic kidney disease), stage III Depression Dyslipidemia HTN (hypertension) Osteoarthritis Sciatica Exercise / Class Metabolic Activity III < 4 Walking/Shop/Light housework Past Family History Family History Other Heart disease Hypertension Past Surgical History Surgical History Fracture of left hip requiring operative repair 2015 Knee joint replacement status bilateral Past Anesthesia History No Hx of Anesthesia Complications and No Family Hx of Anesthesia Complications History of PONV No Hx of PONV and No Hx of Motion Sickness Social History Smoking Status: Former smoker tobacco type: cigarettes Smoking cigarettes per day: quit in 2003 Do You Dip or Chew Tobacco: No Smoking End Date: 1999 Hx Alcohol Use: Yes Alcohol type: beer Alcohol Intake Frequency Comment: occasional Hx Substance Use: No substance use type: does not use Physical Exam Vital Signs Last Vital Signs Temp 37 C 01/22/21 19:48 Pulse 86 01/22/21 19:48 Resp 20 01/22/21 19:48 BP 182/80 H 01/22/21 19:48 Pulse Ox 95 01/22/21 19:48 Testing Laboratory Results 01/22/21 14:05 01/22/21 14:05 PT 10.8 Seconds (9.0-12.0) 01/22/21 14:05 INR 1.1 (0.9-1.1) 01/22/21 14:05 APTT 24.4 Seconds (21.0-31.0) 01/22/21 14:05 Urine Color Yellow 01/22/21 13:30 Urine Appearance Clear (Clear) 01/22/21 13:30 Urine pH 5.5 (4.5-7.5) 01/22/21 13:30 Ur Specific [place] 1.021 (1.000-1.030) 01/22/21 13:30 Urine Protein Negative (Negative) 01/22/21 13:30 Urine Glucose (UA) Negative (Negative) 01/22/21 13:30 Urine Ketones Negative (Negative) 01/22/21 13:30 Urine Nitrite Negative (Negative) 01/22/21 13:30 Ur Leukocyte Esterase Negative (Negative) 01/22/21 13:30 Electrocardiogram Date: 01/22/21 Findings: + NSR @ (at 62) Chest X-Ray Date: 01/22/21 Findings: + NAD Echocardiogram Date: 04/27/16 EF: 55% LV Function: normal RWMA: no none Other Findings: + diastolic dysfunction (grade 1) Valvular Disease: + no significant valvular disease Cardiac Catheterization Date: 08/22/14 Findings: + RCA (60-70%), + LMA (LAD-30%) and + pertinent finding (RI-70%) Intervention: + none
[2021-01-22] MEDS: DOCUSATE SODIUM/SENNA 50/8.6MG TAB PO SCH (21:16)
[2021-01-22] MEDS: ESCITALOPRAM OXALATE 20 MG TAB PO SCH (21:16)
[2021-01-22] MEDS: ISOSORBIDE MONO EXTENDED REL 30 MG TABCR PO SCH (21:16)
[2021-01-22] MEDS: traZODone HCL 100 MG TAB PO SCH (21:17)
[2021-01-22] MEDS: METOPROLOL SUCC 25MG EXT REL TAB PO SCH (21:17)
[2021-01-22] MEDS ORDERED: SODIUM CHLORIDE 0.9% 1000ML 1,000 ML IV SCH (23:00)
[2021-01-23] MEDS: ACETAMINOPHEN 500 MG TAB PO SCH ×4 (03:32→22:37)
[2021-01-23] MEDS ORDERED: SODIUM CHLORIDE 0.9% 500 ML IV ONE (05:42)
[2021-01-23] MEDS ORDERED: ceFAZolin 2000MG 2,000 MG/15 ML SYR IV SCH (06:00)
[2021-01-23 06:05] LABS: Basophils # (auto) 0.02 K/uL (0-0.2); Basophils % (auto) 0.2 %; Eosinophils # (auto) 0.21 K/uL (0-0.5); Eosinophils % (auto) 2.6 %; Hematocrit (blood only) 34.9 % (37-47); Immature Granulocytes # (auto) 0.02 K/uL (0.00-0.02); Immature Granulocytes % (auto) 0.2 %; Lymphocytes # (auto) 2.64 K/uL (1.2-3.4); Lymphocytes % (auto) 32.8 %; Mean Corpuscular Hemoglobin 31.1 pg (25-34); Mean Corpuscular Hgb Conc 31.5 g/dL (32-36); Mean Corpuscular Volume 98.6 fL (80-100); Mean Platelet Volume 10.4 fL (7.4-10.4); Monocytes # (auto) 0.42 K/uL (0.11-0.59); Monocytes % (auto) 5.2 %; Neutrophils # (auto) 4.74 K/uL (1.4-6.5); Platelet Count 153 K/uL (130-400); RDW Coefficient of Variation 14.1 % (11.5-14.5); RDW Standard Deviation 50.6 fL (36.4-46.3); Red Blood Count 3.54 M/uL (4.2-5.4); White Blood Count 8.05 K/uL (4.8-10.8)
[2021-01-23 06:36] LABS: BUN Creatinine Ratio 20.5 (10-20); Calcium 8.3 mg/dl (8.5-10.1); Creatinine Clr Calc Pharmacy 51.4 ml/min; Est GFR (African American) 72.9 ml/min; Est GFR (Non-African American) 62.9 ml/min; Potassium 4.8 mmol/L (3.5-5.1)
--- NOTE | 2021-01-23 06:48 | Electrocardiogram Report ---
Test Reason : Blood Pressure : / mmHG Vent. Rate : 061 BPM Atrial Rate : 061 BPM P-R Int : 180 ms QRS Dur : 088 ms QT Int : 420 ms P-R-T Axes : 052 -15 057 degrees QTc Int : 422 ms Normal sinus rhythm Normal ECG When compared with ECG of 15-MAY-2017 23:15, No significant change was found Confirmed by Austin Gant ([id number]) on 01/23/2021 6:47:26 AM Referred By: Confirmed By:Austin Gant
[2021-01-23] MEDS ORDERED: LIDOCAINE 2% 2 ML VIAL/AMP(20MG/ML) INFIL ONE (06:58)
[2021-01-23] MEDS ORDERED: PROPOFOL IV EMULSION 10 MG/ML 20 ML VIAL IV ONE ×2 (06:58→09:37)
[2021-01-23] MEDS ORDERED: MIDAZOLAM HCL 1 MG/ML 2ML VIAL ONE (06:58)
[2021-01-23] MEDS ORDERED: fentaNYL citrate 100 MCG/2 ML VIAL ONE (06:58)
[2021-01-23] MEDS ORDERED: ONDANSETRON INJ 2 MG/ML 2 ML VIAL ONE (06:58)
[2021-01-23] MEDS ORDERED: SODIUM CHLORIDE 0.45 % 1,000 ML IV SCH (07:00)
[2021-01-23] MEDS ORDERED: fentaNYL citrate 100 MCG/2 ML VIAL IV PRN (07:10)
[2021-01-23] MEDS ORDERED: ATROPINE SULFATE 0.1 MG/ML 10ML SYR IV PRN (07:10)
[2021-01-23] MEDS ORDERED: ONDANSETRON INJ 2 MG/ML 2 ML VIAL IV PRN (07:10)
[2021-01-23] MEDS ORDERED: ePHEDrine sulfate 50 MG/ML AMP IV PRN (07:10)
--- NOTE | 2021-01-23 08:01 | History & Physical Bridge Note ---
Date of Service January 23, 2021 History & Physical Bridge Note I have examined the patient, reviewed the History & Physical and in the interval since the performance of the History & Physical I have noted the following changes of clinical significance: no changes noted
[2021-01-23] MEDS ORDERED: PHENYLEPHRINE 100MCG/ML 5ML SYR ONE (09:27)
[2021-01-23] MEDS ORDERED: ePHEDrine sulfate 50 MG/ML SYR ONE (09:27)
--- NOTE | 2021-01-23 09:35 | Fluoroscopy Report ---
FL hip RT 2-3V CLINICAL HISTORY: RIGHT TROCH NAIL. Right hip fracture. COMPARISON STUDY: None. FLUOROSCOPY TIME: 1 minute and 36 seconds. FINDINGS: 4 fluoroscopic spot images of the right hip demonstrates a short proximal intramedullary fe moral annabel within interlocking femoral neck pin traversing the intertrochanteric fracture. The alignme nt is near-anatomic. The hardware is intact. IMPRESSION: Fluoroscopy provided for internal fixation of a right intertrochanteric femoral fracture. ACT 112: Negative or not required by law. Electronically signed by: Harlan Belle M.D. 01/23/2021 9:34 AM
--- NOTE | 2021-01-23 09:45 | Post Operative Brief Note ---
Immediate Post Op Note v1 Date of Surgery January 23, 2021 Pre & Post Diagnosis Operation Date: 01/23/21 08:00 Pre-Op Diagnosis: Right displaced angulated intertrochanteric Hip Fracture Post-Op Diagnosis: Right displaced angulated intertrochanteric Hip Fracture I identified the patient and participated in the time-out.: Yes Procedure Operation Date: 01/23/21 08:00 Actual Procedures p Open Reduction Internal Fixation Right Intertrochanteric Hip Fracture with Synthes 11 mm x 235 mm intermediate trochanteric nail, 100 mm x 11 mm spiral blade and 5 mm x 36 mm transverse locking screw. (Right) - Neto Giang DO Surgeon Neto Giang DO Director Of Marketing And Promotions Kit Lopez PA-C Estimated Blood Loss 20 Findings Consistent with Post-Op Diagnosis Anesthesia Type Spinal MAC Complications none Disposition Accompanied Patient To Recovery: No
--- NOTE | 2021-01-23 09:55 | Orthopedic Consultation ---
Date of Consultation January 23, 2021 Assessment & Plan (1) Closed intertrochanteric fracture of right hip: case discussed with Dr Giang, recommend surgical intervention to fix her right hip intertroch fracture. will keep patient NPO, once patient cleared from medical perspective will proceed with troch nail fixation of her right hip. The risks and benefits have been discussed including, but not limited to, risk of infection, nerve injury, stiffness, loss of motion, failure to improve, etc. Reasonable outcomes and options of treatment were discussed. An explanation of appropriate alternatives to the procedure that may be advantageous were discussed and their risks and benefits, as well as the risks and benefits of not proceeding with treatment. I offered to answer any additional inquiries concerning the treatment involved. All the patient's questions were answered. The patient is agreeable, understanding of the treatment plan and alternatives, and wishes to proceed with the treatment plan. History of Present Illness Reason for Consultation: right hip fracture Attending Physician: Marcos Pack MD History of Present Illness Gretchen is an 85-year-old female who presented to the emergency department yesterday afternoon after sustaining a fall. she states that she was walking with a cart when she lost her step and landed onto her right side. She states that she did not strike her head and did not lose consciousness. She states the pain is moderate to severe with any movement. denies any injuries or trauma to this hip prior. did have prior right total knee replacement Allergies Allergy/AdvReac Type Severity Reaction Status Date / Time No Known Allergies Allergy Unverified 01/22/21 15:57 Home Medications Medication Instructions Recorded Confirmed Type aspirin 81 mg tablet 81 mg PO DAILY 01/22/21 01/22/21 History atorvastatin 40 mg tablet 40 mg PO DAILY 01/22/21 01/22/21 History cholecalciferol (vitamin D3) 25 25 mcg PO DAILY 01/22/21 01/22/21 History mcg (1,000 unit) tablet (Vitamin D3) escitalopram oxalate 20 mg tablet 20 mg PO HS 01/22/21 01/22/21 History gabapentin 100 mg capsule 100 mg PO HS 01/22/21 01/22/21 History isosorbide mononitrate 30 mg 30 mg PO BID 01/22/21 01/22/21 History tablet,extended release 24 hr metoprolol succinate 25 mg 25 mg PO HS 01/22/21 01/22/21 History tablet,extended release 24 hr raloxifene 60 mg tablet 60 mg PO DAILY 01/22/21 01/22/21 History trazodone 100 mg tablet 200 mg PO HS 01/22/21 01/22/21 History Patient History Medical History Anxiety CAD (coronary artery disease) CKD (chronic kidney disease), stage III Depression Dyslipidemia HTN (hypertension) Osteoarthritis Sciatica Surgical History Fracture of left hip requiring operative repair 2014 Knee joint replacement status bilateral Family History Other Heart disease Hypertension Social History Smoking Status: Former smoker Cigarettes Per Day: quit in 2003; Smoking End Date: 1999; Second Hand Exposure: No; Do You Dip or Chew Tobacco: No; Tobacco Cessation Education Requested by Patient: No Hx Alcohol Use: Yes Alcohol type: beer Hx Substance Use: No Preferred Language: Kinyarwanda Communication Ability: Effective All Purpose Clerk Required: No Beliefs That Will Affect Care: None Current Living Situation: Alone Current Living Situation Comment: [facility] Other Information That Helps Us Care for You: No Feels Safe at Home: Yes Safety Concerns: Feels Safe At This Time Assistive Devices: Denture - Upper and Glasses Review of Systems Constitutional: no fever and no chills Respiratory: no cough and no dyspnea Cardiovascular: no chest pain and no orthopnea Gastrointestinal: no nausea and no vomiting Physical Exam Physical Exam: Vital Signs Temp Pulse Pulse Resp BP BP Pulse Ox 01/23/21 05:55 37 C 80 16 129/75 98 01/23/21 04:00 36.9 C 70 18 109/63 98 01/22/21 21:13 81 18 118/68 97 01/22/21 19:48 37 C 86 20 182/80 H 95 01/22/21 16:54 78 18 184/96 H 98 01/22/21 16:30 78 206/109 H 93 01/22/21 16:00 79 15 189/103 H 99 01/22/21 15:30 74 14 175/96 H 98 01/22/21 15:00 73 9 L 199/97 H 98 01/22/21 14:31 71 10 L 183/90 H 91 01/22/21 14:00 71 16 176/94 H 93 01/22/21 13:55 71 18 96 01/22/21 13:52 65 15 195/80 H 94 Intake and Output 01/22/21 01/23/21 01/23/21 22:59 06:59 14:59 Intake Total 500 / 1500 1000 / 1500 500 / 500 Output Total 1500 / 1650 150 / 1650 Balance -1000 / -150 850 / -150 500 / 500 Intake: IV 500 / 1500 1000 / 1500 500 / 500 Sodium Chlorid e 0.9% 1000ML 1, 1000 / 1000 000 ml @ 80 ml s/hr IV .[id number] [facility] Rx#:[id number] Sodium Chlorid e 0.9% 500 ml @ 500 / 500 500 / 500 500 mls/hr IV .Q1H ONE Rx#: [id number] Output: Urine Amount (Ca theter) 1500 / 1650 150 / 1650 Patel/Indwelli ng 1500 / 1650 150 / 1650 Other: Other Intake Dori rce NPO Weight 76.4 kg 76.4 kg Weight Measureme nt Method Built in [facility] Patient Weight 01/24/21 06:59 Weight 76.4 kg Constitutional: WD/WN, vitals as above Musculoskeletal: Hip: + hip abnormal to inpsection (shortened and external rotation), + ecchymosis, + limited ROM of hip (pain with any attempt of internal or external rotation) and + log roll test positive; no skin erythema and no surgical incision Results & Data ([facility]) Vital Signs (Past 12 Hours) Vital Signs Temp Pulse Resp BP Pulse Ox 01/23/21 05:55 37 C 80 16 129/75 98 01/23/21 04:00 36.9 C 70 18 109/63 98 Laboratory Results Laboratory Results WBC 8.05 K/uL (4.8-10.8) 01/23/21 05:53 RBC 3.54 M/uL (4.2-5.4) L 01/23/21 05:53 Hgb 11.0 g/dL (12.0-16.0) L 01/23/21 05:53 Hct 34.9 % (37-47) L 01/23/21 05:53 MCV 98.6 fL (80-100) 01/23/21 05:53 MCH 31.1 pg (25-34) 01/23/21 05:53 MCHC 31.5 g/dL (32-36) L 01/23/21 05:53 RDW Std Deviation 50.6 fL (36.4-46.3) H 01/23/21 05:53 RDW Coeff of Brandan 14.1 % (11.5-14.5) 01/23/21 05:53 Plt Count 153 K/uL (130-400) 01/23/21 05:53 MPV 10.4 fL (7.4-10.4) 01/23/21 05:53 Immature Gran % (Auto) 0.2 % 01/23/21 05:53 Neut % (Auto) 59.0 % 01/23/21 05:53 Lymph % (Auto) 32.8 % 01/23/21 05:53 [place] % (Auto) 5.2 % 01/23/21 05:53 Eos % (Auto) 2.6 % 01/23/21 05:53 Baso % (Auto) 0.2 % 01/23/21 05:53 Neut # (Auto) 4.74 K/uL (1.4-6.5) 01/23/21 05:53 Lymph # (Auto) 2.64 K/uL (1.2-3.4) 01/23/21 05:53 [place] # (Auto) 0.42 K/uL (0.11-0.59) 01/23/21 05:53 Eos # (Auto) 0.21 K/uL (0-0.5) 01/23/21 05:53 Baso # (Auto) 0.02 K/uL (0-0.2) 01/23/21 05:53 Immature Gran # (Auto) 0.02 K/uL (0.00-0.02) 01/23/21 05:53 PT 10.8 Seconds (9.0-12.0) 01/22/21 14:05 INR 1.1 (0.9-1.1) 01/22/21 14:05 APTT 24.4 Seconds (21.0-31.0) 01/22/21 14:05 PTT Ratio 0.9 01/22/21 14:05 Sodium 143 mmol/L (136-145) 01/23/21 05:53 Potassium 4.8 mmol/L (3.5-5.1) 01/23/21 05:53 Chloride 111 mmol/L (98-107) H 01/23/21 05:53 Carbon Dioxide 30 mmol/L (21-32) 01/23/21 05:53 Anion Gap 2.0 (3-11) L 01/23/21 05:53 BUN 18 mg/dl (7-18) 01/23/21 05:53 Creatinine 0.85 mg/dl (0.6-1.2) 01/23/21 05:53 Est Cr Clr Drug Dosing 51.4 ml/min 01/23/21 05:53 Est GFR ( Amer) 72.9 ml/min 01/23/21 05:53 Est GFR (Non-Af Amer) 62.9 ml/min 01/23/21 05:53 BUN/Creatinine Ratio 20.5 (10-20) H 01/23/21 05:53 Glucose 103 mg/dl (70-99) H 01/23/21 05:53 Calcium 8.3 mg/dl (8.5-10.1) L 01/23/21 05:53 Total Bilirubin 0.3 mg/dl (0.2-1) 01/22/21 14:05 AST 19 U/L (15-37) 01/22/21 14:05 ALT 16 U/L (12-78) 01/22/21 14:05 Alkaline Phosphatase 60 U/L (45-117) 01/22/21 14:05 Troponin I < 0.015 ng/ml (0-0.045) 01/22/21 14:05 Total Protein 6.4 gm/dl (6.4-8.2) 01/22/21 14:05 Albumin 3.4 gm/dl (3.4-5.0) 01/22/21 14:05 Globulin 3.0 gm/dl (2.5-4.0) 01/22/21 14:05 Albumin/Globulin Ratio 1.1 (0.9-2) 01/22/21 14:05 Lipase 142 U/L (73-393) 01/22/21 14:05 Specimen Hemolysis 01/22/21 14:05 Urine Color Yellow 01/22/21 13:30 Urine Appearance Clear (Clear) 01/22/21 13:30 Urine pH 5.5 (4.5-7.5) 01/22/21 13:30 Ur Specific [place] 1.021 (1.000-1.030) 01/22/21 13:30 Urine Protein Negative (Negative) 01/22/21 13:30 Urine Glucose (UA) Negative (Negative) 01/22/21 13:30 Urine Ketones Negative (Negative) 01/22/21 13:30 Urine Blood Negative (Negative) 01/22/21 13:30 Urine Nitrite Negative (Negative) 01/22/21 13:30 Urine Bilirubin Negative (Negative) 01/22/21 13:30 Urine Urobilinogen Negative (Negative) 01/22/21 13:30 Ur Leukocyte Esterase Negative (Negative) 01/22/21 13:30 COVID-19 Eval Order Covid19 at [facility] 01/22/21 13:40 SARS-CoV-2 (PCR) NEGATIVE (Negative) 01/22/21 13:40 Blood Type A Positive 01/22/21 19:58 Antibody Screen NEGATIVE 01/22/21 19:58 Impressions Chest X-Ray 01/22/21 13:23 XR chest 1V portable INDICATION: MN ^Y ^Chest Pain . TECHNIQUE: Single frontal radiograph of the chest was obtained. Comparison: Comparison is made to chest one view 05/15/2017 FINDINGS: No lines and tubes are seen. The cardiomediastinal silhouette is normal. The lungs are clear. No evidence of pleural effusion or pneumothorax. IMPRESSION: No acute chest disease. ACT 112: Negative or not required by law. Electronically signed by: Kameron Gillette M.D. 01/22/2021 2:58 PM Hip/Pelvis X-Ray 01/22/21 13:23 XR hip RT 2V w pelvis INDICATION: MN ^JTF ^fall TECHNIQUE: 2 views of the right hip and single frontal view of the pelvis were obtained. Comparison: Comparison is made to pelvis one view 05/15/2017 FINDINGS: There is an acute intertrochanteric fracture of the right femur with apex lateral angulation. Patient is status post left total hip arthroplasty. The bones are anatomically aligned. Bones are osteopenic. Degenerative changes are noted. IMPRESSION: Acute intertrochanteric fracture of the right femur. ACT 112: Negative or not required by law. Electronically signed by: Kameron Gillette M.D. 01/22/2021 2:59 PM Knee X-Ray 01/22/21 13:23 XR knee RT 1 or 2V routine CLINICAL HISTORY: fall. Right knee pain. COMPARISON STUDY: None. FINDINGS: The bones are osteopenic. No acute fracture or dislocation within the right knee. There is a right total knee arthroplasty. The hardware appears intact. Mild anterior soft tissue swelling. No significant knee effusion. IMPRESSION: 1. No fracture or dislocation within the right knee. 2. Right total knee arthroplasty. ACT 112: Negative or not required by law. Electronically signed by: Harlan Belle M.D. 01/22/2021 3:[address] 01/22/21 13:[address] DOSE: 1035.87 mGy.cm HISTORY: fall TECHNIQUE: Multiaxial CT images of the cervical spine were performed and reformatted in the sagittal and coronal plane without the use of contrast. A dose lowering technique was utilized adhering to the principles of ALARA. COMPARISON: None. FINDINGS: No fractures. No subluxation. Prevertebral soft tissues and the C1-C2 interval are intact. No pneumothorax. Multinodular thyroid gland. Dominant nodule within the left lobe measures 3 cm. The C3-C5 vertebral bodies and facets are fused. Moderate degenerative changes throughout the cervical spine. IMPRESSION: 1. No fractures within the cervical spine. 2. Multinodular thyroid gland with a dominant nodule in the left lobe measuring 3 cm. ACT 112: Negative or not required by law. Electronically signed by: Harlan Belle M.D. 01/22/2021 2:[address] 01/22/21 13:54 CT head/brain wo con CLINICAL HISTORY: 85 years-old Female with fall. Acute head injury status post fall TECHNIQUE: Multiple axial CT images of the head were obtained without contrast. A dose lowering technique was utilized adhering to the principles of ALARA. COMPARISON: CT cervical spine of same day FINDINGS: No acute intracranial hemorrhage, midline shift, intracranial mass, hydrocephalus, territorial ischemia or abnormal extra-axial collection. Age- related involutional changes. Cerebral vascular calcifications. White matter hypodensities suggestive of chronic microvascular ischemic disease. The calvarium is intact. Prior bilateral lens repair. The paranasal sinuses, mastoid air cells, and middle ear cavities are clear. IMPRESSION: No acute intracranial abnormality or calvarial fracture. ACT 112: Negative or not required by law. The above report was generated using voice recognition software. It may contain grammatical, syntax or spelling errors. ACT 112: Negative or not required by law. Electronically signed by: Harlan Belle M.D. 01/23/2021 9:34 AM (1) Closed intertrochanteric fracture of right hip Encounter type: initial encounter Fracture alignment: displaced Qualified Code(s): S72.141A - Displaced intertrochanteric fracture of right femur, initial encounter for closed fracture
--- NOTE | 2021-01-23 10:13 | Anesthesiology Progress Note ---
Date of Service January 23, 2021 Anesthesia Post Procedure Vital Signs Vital Signs: Temp Pulse Pulse Pulse Resp BP BP 01/23/21 10:05 86 16 115/51 L 01/23/21 09:55 80 17 121/62 01/23/21 09:47 98.2 F 82 12 104/52 L 01/23/21 05:55 98.6 F 80 16 129/75 01/23/21 04:00 98.4 F 70 18 109/63 01/22/21 21:13 81 18 118/68 01/22/21 19:48 98.6 F 86 20 182/80 H 01/22/21 16:54 78 18 184/96 H 01/22/21 16:30 78 206/109 H 01/22/21 16:00 79 15 189/103 H 01/22/21 15:30 74 14 175/96 H 01/22/21 15:00 73 9 L 199/97 H 01/22/21 14:31 71 10 L 183/90 H 01/22/21 14:00 71 16 176/94 H 01/22/21 13:55 71 18 01/22/21 13:52 65 15 195/80 H Pulse Ox 01/23/21 10:05 97 01/23/21 09:55 100 01/23/21 09:47 95 01/23/21 05:55 98 01/23/21 04:00 98 01/22/21 21:13 97 01/22/21 19:48 95 01/22/21 16:54 98 01/22/21 16:30 93 01/22/21 16:00 99 01/22/21 15:30 98 01/22/21 15:00 98 01/22/21 14:31 91 01/22/21 14:00 93 01/22/21 13:55 96 01/22/21 13:52 94 Pain Intensity Right Hip: Pain Intensity: 5 Transfer of Care Handoff Completed per policy Notes Mental Status: alert / awake / arousable and participated in evaluation Patient Amnestic to Procedure: Yes Nausea / Vomiting: adequately controlled Pain: adequately controlled Airway Patency, RR, SpO2: stable & adequate BP & HR: stable & adequate Hydration State: stable & adequate Neuraxial Anesthesia: was administered and sensory block is resolving Anesthetic Complications: no major complications apparent and Pt Satisfied with anesthetic care
[2021-01-23] MEDS ORDERED: MEPERIDINE HCL 50 MG/ML CARP IV STA (10:33)
[2021-01-23] MEDS ORDERED: MEPERIDINE HCL 25 MG/ML CARP/VIAL ONE (10:37)
[2021-01-23] MEDS ORDERED: NALOXONE HCL 0.4 MG/1 ML VIAL/CARP IV PRN (11:09)
[2021-01-23] MEDS: traMADol HCL 50 MG TABLET PO PRN (11:22)
[2021-01-23] MEDS: CHOLECALCIFEROL 1,000 UNITS 25 MCG TAB PO SCH (11:44)
[2021-01-23] MEDS: RALOXIFENE HCL 60 MG TAB PO SCH (11:44)
[2021-01-23] MEDS: ATORVASTATIN 40 MG TAB PO SCH (11:44)
[2021-01-23] MEDS: ISOSORBIDE MONO EXTENDED REL 30 MG TABCR PO SCH ×2 (11:44→20:26)
--- NOTE | 2021-01-23 12:07 | Operative Report (OR) ---
DATE OF PROCEDURE: 01/23/2021. PREOPERATIVE DIAGNOSIS: Right displaced angulated intertrochanteric hip fracture. POSTOPERATIVE DIAGNOSIS: Right displaced angulated intertrochanteric hip fracture. PROCEDURE: Open reduction and internal fixation of right intertrochanteric hip fracture with implant ation of Synthes 11 x 275 mm trochanteric nail with a 100 x 11 mm helical blade and a 5 x 36 mm locki ng screw. SURGEON: Neto Giang DO SALES OPERATIONS CONSULTANT: Kit Lopez PA-C who was present for patient positioning, sterile prep and drape, manag ement of retractors and instruments. He was present through the critical portions of the case includi ng wound closure, application of sterile dressing and transport of the patient to recovery. ANESTHESIA: Spinal MAC. SPECIMENS: None. DRAINS: None. COMPLICATIONS: None. BLOOD LOSS: 20 mL. PERTINENT HISTORY: This is a fit 85-year-old female who boarded the bus to get some groceries. She had lost her footing and she fell onto her right hip with immediate pain and inability to ambulate. She was transported to [facility] where she was evaluated with radiographs, noted t o have a displaced angulated intertrochanteric hip fracture. The patient was then admitted to the spitalist service. She is optimized for surgery with orthopedics to consult for care. The patient w as scheduled for surgery as indicated. All potential risks, benefits, complications, alternatives, rehab potential for incomplete relief of symptoms, need for further surgery, DVT, PE, , persistent pain, swelling, scarring, weakness, ne urovascular injury, wound complications, hardware failure, nonunion, malunion and bone fracture were discussed with the patient. The patient decided to proceed with the procedure as indicated. PROCEDURE: The patient was transferred to the operative suite. The proper site was identified. The co nsent was reviewed, the patient was then administered sedation and spinal anesthetic. Once appropriat e, the patient then transferred to the fracture table where the lower extremity was placed in fractur e table traction and the nonoperative leg was placed in the well leg alatorre. All bony prominences wer e properly padded and protected. The padded post was placed in the peroneal and the patient was posit ioned appropriately. Next the left leg was placed on traction and reduction of the fracture was perfo rmed under fluoroscopic control. Next the operative hip was then sterilely prepped and draped in the usual fashion. Next a 10-blade scalpel incision was used to make an incision proximal to the greater trochanter. The incision was deep in the subcutaneous tissue and fascia and the tip of the greater tr ochanter was then palpated followed by placement of a guide pin under fluoroscopic control driven int o the greater trochanter down to the level of the less trochanter. This was confirmed in AP and later al projections followed by placement of the proximal reamer over the cannulated guide pin. Next the r eamer was then removed using the soft tissue protector, which was also removed. Next the ball tip eloise de annabel was placed into the proximal femur under fluoroscopic control confirmed with AP and lateral fl uoroscope projections. Next the trochanteric nail was then passed over the guide annabel into the femur, the guide annabel was removed and then under fluoroscopic control appropriate level of the femoral nail w as then placed in AP projections. Next the targeting device was then fixed to the driving handle and 10-blade scalpel incision was made in the lateral aspect of the thigh. Next the tissue protector and cannulated guide system was then passed into the soft tissue until it was securely fixed against a la teral aspect of the femoral cortex. This was also confirmed under C-arm. Next the guide pin for the s piral blade was driven into the lateral aspect of the femur confirming this with AP lateral projectio ns until the guide pin was in the center of the femoral neck and head approximately 5 mm from the sub cortical bone of the femur. Next the spiral blade was then measured and then the lateral cortex was t hen drilled with the cortex reamer followed by use of the triple reamer with the depth stop set at ap propriate depth. In this case a 100 x 11 mm spiral blade was then inserted over the cannulated guide annabel under fluoroscopic control. This was seated appropriately then traction was reduced from the limb and the fracture was then gently compressed and then locked proximally with the flexible screwdriver . Next the spiral blade was then disengaged from its insertion handle, insertion handle was then jonelle watson and the guide pin was removed from the femoral neck and head. Next the lateral targeting arm was used to insert the distal locking screw. First a 10-blade scalpel incision was made in the lateral as pect of the thigh, captured drill sleeves were then tamped gently to the lateral aspect of the femora l cortex then the locking screw hole was then drilled, measured and then an appropriate length screw was placed to lock the distal aspect of the nail. Next targeting sleeves were then removed. The inser tion arm was then removed from the nail and final x-rays were obtained in AP and lateral projections. All incisions were then copiously irrigated with sterile normal saline. The proximal gluteus fascia was then closed using interrupted #1 Vicryl, the dermis was closed using buried interrupted 2-0 Vicry l sutures in all three incisions and the skin was then closed using skin josefina. A sterile compressi ve dressing consisting of Xeroform gauze, sterile 4 x 4's and Tegaderm was applied. The patient was t hen awakened and taken to recovery in stable condition. Job ID: [id number]
[2021-01-23] MEDS: HYDROCODONE/ACETAMOPHEN 5/325MG TAB PO PRN ×2 (14:18→20:12)
--- NOTE | 2021-01-23 16:15 | Hospitalist Progress Note ---
Date of Service January 23, 2021 Assessment & Plan (1) Closed right hip fracture: Plan: Per MERCEDES Nery Dunn's notes: This is an 85-year-old female with PMH of CAD, hypertension, dyslipidemia, CKD 3, anxiety and depression who presents after fall outside of grocery store earlier today. Right hip/pelvis XR with acute intertrochanteric fracture of the right femur Head CT, cervical spine CT, R knee XR without evidence of acute abnormality or injury CXR without acute cardiopulmonary abnormality, EKG with normal sinus rhythm 01/23/2021 Open reduction and internal fixation of right intertrochanteric hip fracture with implantation of Synthes 11 x 275 mm trochanteric nail with a 100 x 11 mm helical blade and a 5 x 36 mm locking screw. By Dr. Giang Added Tylenol every 6 hours and [place] as needed for pain Morphine 2 mg every 6 hours as needed for severe pain Continue Senokot-S daily PT OT evaluation Lovenox subcutaneous daily for DVT prophylaxis once hemostasis deemed stable per Ortho PDX team (2) CAD (coronary artery disease): Plan: History of mild to moderate three-vessel coronary disease on 2014 cardiac catheterization, medically managed No cardiac symptoms Continue Imdur, Toprol, statin Hold aspirin Resume aspirin when okay with surgical team (3) HTN (hypertension): Plan: Improving As needed hydralazine ordered (4) CKD (chronic kidney disease), stage III: Plan: Baseline creatinine around 1 Stable (5) Dyslipidemia: Plan: Continue statin (6) Depression: (7) Anxiety: Plan: Continue Escitalopram, trazodone at bedtime DVT Ppx: SCDs Code status: DNR per discussion with patient PCP: Arlene Dispo: PT and OT evaluation plan of care discussed with patient in detail and at length all questions answered she is understanding, agreeable, comfortable with the plan of care Admission and Anticipated Discharge Date Admission Date: January 22, 2021 Subjective ff up for R femoral fracture, etc s/p Open reduction and internal fixation of right intertrochanteric hip fracture was having significant pain earlier after surgery seen resting in bed, comfortable, in good spirits States pain is much better after [place] Denies shortness of breath, chest pain, palpitations, dizziness, abdominal pain, nausea vomiting, fevers or chills No other symptom Review of Systems Review of Systems: all noted and negative except for above Physical Exam Physical Exam: General- oriented x 3, not in distress, speaks in sentences with no effort or accessory muscle use Eyes- anicteric Neck- no JVD Lungs- clear breath sounds bilaterally, no rales/wheezes Heart- normal rate, regular rhythm; no murmurs Abdomen- normal bowel sounds, nondistended, soft, nontender Extremities- no pretibial edema, no calf tenderness Right hip: Moderate edema, dressing in place, no bleeding or discharge, no hematoma Neuro- alert, oriented x 3; no gross focal neurologic deficits Skin- warm & dry Results & Data Results & Data ([facility]) Vital Signs (Past 12 Hours) Vital Signs Temp Pulse Pulse Pulse Resp BP BP 01/23/21 15:17 36.8 C 84 16 102/58 L 01/23/21 14:08 36.7 C 95 H 16 97/58 L 01/23/21 13:12 91/54 L 01/23/21 13:05 37.0 C 98 H 20 93/56 L 01/23/21 12:05 36.7 C 88 18 114/67 01/23/21 11:35 37.0 C 92 H 18 163/71 H 01/23/21 11:05 36.8 C 94 H 20 119/66 01/23/21 10:45 90 14 141/76 H 01/23/21 10:35 96 H 16 124/65 01/23/21 10:25 93 H 14 105/51 L 01/23/21 10:15 37.3 C 92 H 14 130/61 01/23/21 10:05 86 16 115/51 L 01/23/21 09:55 80 17 121/62 01/23/21 09:47 36.8 C 82 12 104/52 L 01/23/21 05:55 37 C 80 16 129/75 Pulse Ox 01/23/21 15:17 96 01/23/21 14:08 94 01/23/21 13:12 01/23/21 13:05 87 L 01/23/21 12:05 97 01/23/21 11:35 97 01/23/21 11:05 100 01/23/21 10:45 100 01/23/21 10:35 94 01/23/21 10:25 93 01/23/21 10:15 95 01/23/21 10:05 97 01/23/21 09:55 100 01/23/21 09:47 95 01/23/21 05:55 98 all noted and reviewed including below
[2021-01-23] MEDS: SODIUM CHLORIDE 0.9% 1000ML 1,000 ML IV SCH (16:19)
[2021-01-23] MEDS: METOPROLOL SUCC 25MG EXT REL TAB PO SCH (20:06)
[2021-01-23] MEDS: DOCUSATE SODIUM/SENNA 50/8.6MG TAB PO SCH (20:07)
[2021-01-23] MEDS: ESCITALOPRAM OXALATE 20 MG TAB PO SCH (20:13)
[2021-01-23] MEDS: traZODone HCL 100 MG TAB PO SCH (22:37)
[2021-01-24] MEDS: SODIUM CHLORIDE 0.9% 1000ML 1,000 ML IV SCH (04:31)
[2021-01-24] MEDS: HYDROCODONE/ACETAMOPHEN 5/325MG TAB PO PRN ×2 (05:38→14:39)
[2021-01-24] MEDS: ACETAMINOPHEN 500 MG TAB PO SCH ×4 (05:38→22:26)
[2021-01-24 06:02] LABS: Basophils # (auto) 0.01 K/uL (0-0.2); Basophils % (auto) 0.1 %; Eosinophils # (auto) 0.24 K/uL (0-0.5); Eosinophils % (auto) 2.9 %; Hematocrit (blood only) 25.4 % (37-47); Hemoglobin 8.3 g/dL (12.0-16.0); Immature Granulocytes # (auto) 0.01 K/uL (0.00-0.02); Immature Granulocytes % (auto) 0.1 %; Lymphocytes # (auto) 1.82 K/uL (1.2-3.4); Lymphocytes % (auto) 21.7 %; Mean Corpuscular Hemoglobin 31.3 pg (25-34); Mean Corpuscular Hgb Conc 32.7 g/dL (32-36); Mean Corpuscular Volume 95.8 fL (80-100); Mean Platelet Volume 10.2 fL (7.4-10.4); Neutrophils # (auto) 5.82 K/uL (1.4-6.5); Neutrophils % (auto) 69.2 %; Platelet Count 117 K/uL (130-400); RDW Coefficient of Variation 14.2 % (11.5-14.5); RDW Standard Deviation 49.6 fL (36.4-46.3); Red Blood Count 2.65 M/uL (4.2-5.4)
[2021-01-24 06:36] LABS: BUN Creatinine Ratio 19.6 (10-20); Calcium 7.9 mg/dl (8.5-10.1); Creatinine Clr Calc Pharmacy 62.5 ml/min; Est GFR (African American) 92.2 ml/min; Est GFR (Non-African American) 79.6 ml/min; Potassium 3.9 mmol/L (3.5-5.1)
--- NOTE | 2021-01-24 06:58 | Orthopedic Progress Note ---
Date of Service January 24, 2021 Assessment & Plan (1) Closed intertrochanteric fracture of right hip: Plan: POD #1 s/p Open reduction and internal fixation of right intertrochanteric hip fracture PT/OT TTWB with walker she can resume her ASA and begin Lovenox this evening CM for rehab placement Admission and Anticipated Discharge Date Admission Date: January 22, 2021 Subjective POD #1 s/p Open reduction and internal fixation of right intertrochanteric hip fracture Review of Systems Constitutional: no fever and no chills Cardiovascular: no chest pain and no dyspnea Gastrointestinal: no nausea and no vomiting Physical Exam Physical Exam: Vital Signs Temp Pulse Pulse Pulse Resp BP BP 01/24/21 02:33 36.8 C 90 16 151/75 H 01/23/21 23:57 36.8 C 86 16 114/70 01/23/21 20:14 37.4 C 92 H 16 93/60 L 01/23/21 17:51 92 H 100/62 01/23/21 16:56 01/23/21 16:50 90 100/59 L 01/23/21 16:45 01/23/21 15:17 36.8 C 84 16 102/58 L 01/23/21 14:08 36.7 C 95 H 16 97/58 L 01/23/21 13:12 91/54 L 01/23/21 13:05 37.0 C 98 H 20 93/56 L 01/23/21 12:05 36.7 C 88 18 114/67 01/23/21 11:35 37.0 C 92 H 18 163/71 H 01/23/21 11:05 36.8 C 94 H 20 119/66 01/23/21 10:45 90 14 141/76 H 01/23/21 10:35 96 H 16 124/65 01/23/21 10:25 93 H 14 105/51 L 01/23/21 10:15 37.3 C 92 H 14 130/61 01/23/21 10:05 86 16 115/51 L 01/23/21 09:55 80 17 121/62 01/23/21 09:47 36.8 C 82 12 104/52 L Pulse Ox 01/24/21 02:33 100 01/23/21 23:57 99 01/23/21 20:14 98 01/23/21 17:51 98 10/02/21 16:56 98 01/23/21 16:50 94 01/23/21 16:45 79 L 01/23/21 15:17 96 01/23/21 14:08 94 01/23/21 13:12 01/23/21 13:05 87 L 01/23/21 12:05 97 01/23/21 11:35 97 01/23/21 11:05 100 01/23/21 10:45 100 01/23/21 10:35 94 01/23/21 10:25 93 01/23/21 10:15 95 01/23/21 10:05 97 01/23/21 09:55 100 01/23/21 09:47 95 Intake and Output 01/23/21 01/23/21 01/24/21 14:59 22:59 06:59 Intake Total 1950 / 3911 785 / 3911 1176 / 3911 Output Total 195 / 1120 600 / 1120 325 / 1120 Balance 1755 / 2791 185 / 2791 851 / 2791 Intake: IV 500 / 1991 515 / 1991 976 / 1991 Sodium Chlorid e 0.45 % 1,000 ml 515 / 515 @ 100 mls/hr I V .Q10H [facility] Rx#: [id number] Sodium Chlorid e 0.9% 1000ML 1, 976 / 976 000 ml @ 80 ml s/hr IV .[id number] [facility] Rx#:[id number] Sodium Chlorid e 0.9% 500 ml @ 500 / 500 500 mls/hr IV .Q1H [facility] Rx#: [id number] IV Perioperative 1450 / 1450 Oral 270 / 470 200 / 470 Output: Estimated Blood Loss 20 / 20 Urine Amount (Ca theter) 175 / 1100 600 / 1100 325 / 1100 Patel/Indwelli ng 175 / 1100 600 / 1100 325 / 1100 Other: Weight 76.4 kg Patient Weight 01/24/21 06:59 Weight 76.4 kg Musculoskeletal: Hip: + hip abnormal to inpsection (right hip dressing is clean dry and intact. no drainage noted. ); no deformity Results & Data ([facility]) Vital Signs (Past 12 Hours) Vital Signs Temp Pulse Pulse Resp BP Pulse Ox 01/24/21 02:33 36.8 C 90 16 151/75 H 100 01/23/21 23:57 36.8 C 86 16 114/70 99 01/23/21 20:14 37.4 C 92 H 16 93/60 L 98 Diagnostic Findings Laboratory Results WBC 8.40 K/uL (4.8-10.8) 01/24/21 05:51 RBC 2.65 M/uL (4.2-5.4) L 01/24/21 05:51 Hgb 8.3 g/dL (12.0-16.0) L 01/24/21 05:51 Hct 25.4 % (37-47) L 01/24/21 05:51 MCV 95.8 fL (80-100) 01/24/21 05:51 MCH 31.3 pg (25-34) 01/24/21 05:51 MCHC 32.7 g/dL (32-36) 01/24/21 05:51 RDW Std Deviation 49.6 fL (36.4-46.3) H 01/24/21 05:51 RDW Coeff of Brandan 14.2 % (11.5-14.5) 01/24/21 05:51 Plt Count 117 K/uL (130-400) L 01/24/21 05:51 MPV 10.2 fL (7.4-10.4) 01/24/21 05:51 Immature Gran % (Auto) 0.1 % 01/24/21 05:51 Neut % (Auto) 69.2 % 01/24/21 05:51 Lymph % (Auto) 21.7 % 01/24/21 05:51 Knott % (Auto) 6.0 % 01/24/21 05:51 Eos % (Auto) 2.9 % 01/24/21 05:51 Baso % (Auto) 0.1 % 01/24/21 05:51 Neut # (Auto) 5.82 K/uL (1.4-6.5) 01/24/21 05:51 Lymph # (Auto) 1.82 K/uL (1.2-3.4) 01/24/21 05:51 Knott # (Auto) 0.50 K/uL (0.11-0.59) 01/24/21 05:51 Eos # (Auto) 0.24 K/uL (0-0.5) 01/24/21 05:51 Baso # (Auto) 0.01 K/uL (0-0.2) 01/24/21 05:51 Immature Gran # (Auto) 0.01 K/uL (0.00-0.02) 01/24/21 05:51 PT 10.8 Seconds (9.0-12.0) 01/22/21 14:05 INR 1.1 (0.9-1.1) 01/22/21 14:05 APTT 24.4 Seconds (21.0-31.0) 01/22/21 14:05 PTT Ratio 0.9 01/22/21 14:05 Sodium 137 mmol/L (136-145) 01/24/21 05:51 Potassium 3.9 mmol/L (3.5-5.1) D 01/24/21 05:51 Chloride 108 mmol/L (98-107) H 01/24/21 05:51 Carbon Dioxide 25 mmol/L (21-32) 01/24/21 05:51 Anion Gap 4.0 (3-11) 01/24/21 05:51 BUN 14 mg/dl (7-18) 01/24/21 05:51 Creatinine 0.70 mg/dl (0.6-1.2) 01/24/21 05:51 Est Cr Clr Drug Dosing 62.5 ml/min 01/24/21 05:51 Est GFR ( Amer) 92.2 ml/min 01/24/21 05:51 Est GFR (Non-Af Amer) 79.6 ml/min 01/24/21 05:51 BUN/Creatinine Ratio 19.6 (10-20) 01/24/21 05:51 Glucose 115 mg/dl (70-99) H 01/24/21 05:51 Lactate 0.8 mmol/L (0.4-2.0) 01/24/21 05:54 Calcium 7.9 mg/dl (8.5-10.1) L 01/24/21 05:51 Total Bilirubin 0.3 mg/dl (0.2-1) 01/22/21 14:05 AST 19 U/L (15-37) 01/22/21 14:05 ALT 16 U/L (12-78) 01/22/21 14:05 Alkaline Phosphatase 60 U/L (45-117) 01/22/21 14:05 Troponin I < 0.015 ng/ml (0-0.045) 01/22/21 14:05 Total Protein 6.4 gm/dl (6.4-8.2) 01/22/21 14:05 Albumin 3.4 gm/dl (3.4-5.0) 01/22/21 14:05 Globulin 3.0 gm/dl (2.5-4.0) 01/22/21 14:05 Albumin/Globulin Ratio 1.1 (0.9-2) 01/22/21 14:05 Lipase 142 U/L (73-393) 01/22/21 14:05 Specimen Hemolysis 01/22/21 14:05 Urine Color Yellow 01/22/21 13:30 Urine Appearance Clear (Clear) 01/22/21 13:30 Urine pH 5.5 (4.5-7.5) 01/22/21 13:30 Ur Specific [place] 1.021 (1.000-1.030) 01/22/21 13:30 Urine Protein Negative (Negative) 01/22/21 13:30 Urine Glucose (UA) Negative (Negative) 01/22/21 13:30 Urine Ketones Negative (Negative) 01/22/21 13:30 Urine Blood Negative (Negative) 01/22/21 13:30 Urine Nitrite Negative (Negative) 01/22/21 13:30 Urine Bilirubin Negative (Negative) 01/22/21 13:30 Urine Urobilinogen Negative (Negative) 01/22/21 13:30 Ur Leukocyte Esterase Negative (Negative) 01/22/21 13:30 COVID-19 Eval Order Covid19 at [facility] 01/22/21 13:40 SARS-CoV-2 (PCR) NEGATIVE (Negative) 01/22/21 13:40 Blood Type A Positive 01/22/21 19:58 Antibody Screen NEGATIVE 01/22/21 19:58 Hip X-Ray 01/23/21 08:00 FL hip RT 2-3V CLINICAL HISTORY: RIGHT TROCH NAIL. Right hip fracture. COMPARISON STUDY: None. FLUOROSCOPY TIME: 1 minute and 36 seconds. FINDINGS: 4 fluoroscopic spot images of the right hip demonstrates a short proximal intramedullary femoral annabel within interlocking femoral neck pin traversing the intertrochanteric fracture. The alignment is near-anatomic. The hardware is intact. IMPRESSION: Fluoroscopy provided for internal fixation of a right intert rochanteric femoral fracture. ACT 112: Negative or not required by law. Electronically signed by: Harlan Belle M.D. 01/23/2021 9:34 AM (1) Closed intertrochanteric fracture of right hip Encounter type: initial encounter Fracture alignment: displaced Qualified Code(s): S72.141A - Displaced intertrochanteric fracture of right femur, initial encounter for closed fracture
[2021-01-24] MEDS: CHOLECALCIFEROL 1,000 UNITS 25 MCG TAB PO SCH (09:56)
[2021-01-24] MEDS: ATORVASTATIN 40 MG TAB PO SCH (09:56)
[2021-01-24] MEDS: RALOXIFENE HCL 60 MG TAB PO SCH (09:56)
[2021-01-24] MEDS: ISOSORBIDE MONO EXTENDED REL 30 MG TABCR PO SCH ×2 (09:56→20:32)
--- NOTE | 2021-01-24 17:21 | Hospitalist Progress Note ---
Date of Service January 24, 2021 Assessment & Plan (1) Closed right hip fracture: Plan: Per MERCEDES Nery Dunn's notes: This is an 85-year-old female with PMH of CAD, hypertension, dyslipidemia, CKD 3, anxiety and depression who presents after fall outside of grocery store earlier today. Right hip/pelvis XR with acute intertrochanteric fracture of the right femur Head CT, cervical spine CT, R knee XR without evidence of acute abnormality or injury CXR without acute cardiopulmonary abnormality, EKG with normal sinus rhythm 01/23/2021 Open reduction and internal fixation of right intertrochanteric hip fracture with implantation of Synthes 11 x 275 mm trochanteric nail with a 100 x 11 mm helical blade and a 5 x 36 mm locking screw. By Dr. Giang Added Tylenol every 6 hours and [place] as needed for pain Morphine 2 mg every 6 hours as needed for severe pain 01/24/2021 Stable overall Hemoglobin decreased from 10-8, repeat CBC tomorrow Wean off oxygen, encouraged use incentive spirometry Per Ortho, may resume aspirin and start Lovenox today Continue Senokot-S daily PT OT evaluation in progress (2) CAD (coronary artery disease): Plan: History of mild to moderate three-vessel coronary disease on 2014 cardiac catheterization, medically managed No cardiac symptoms Continue Imdur, Toprol, statin May resume aspirin per Ortho service (3) HTN (hypertension): Plan: Improving As needed hydralazine ordered (4) CKD (chronic kidney disease), stage III: Plan: Baseline creatinine around 1 Stable (5) Dyslipidemia: Plan: Continue statin (6) Depression: (7) Anxiety: Plan: Continue Escitalopram, trazodone at bedtime DVT Ppx: SCDs Code status: DNR per discussion with patient PCP: Arlene Dispo: PT and OT evaluation plan of care discussed with patient in detail and at length all questions answered she is understanding, agreeable, comfortable with the plan of care Admission and Anticipated Discharge Date Admission Date: January 22, 2021 Subjective ff up for s/p r hip surgery seen resting in bed, comfortable, sitting up, watching TV In good spirits States she feels fine overall except for right hip pain worse with ambulation Denies shortness of breath, chest pain, palpitations, dizziness, nausea vomiting, headache No cough, fevers or chills, sputum production No other symptoms Review of Systems Review of Systems: all noted and negative except for above Physical Exam Physical Exam: General- oriented x 3, not in distress, speaks in sentences with no effort or accessory muscle use Eyes- anicteric Neck- no JVD Lungs- clear breath sounds bilaterally, no crackles, no wheezing noted Heart- normal rate, regular rhythm; no murmurs Abdomen- normal bowel sounds, nondistended, soft, nontender Extremities- no pretibial edema, no calf tenderness Right hip: Heavy dressing in place, no bleeding or discharge, mild edema of the right leg No hematoma Neuro- alert, oriented x 3; no gross focal neurologic deficits Skin- warm & dry Results & Data Results & Data ([facility]) Vital Signs (Past 12 Hours) Vital Signs Temp Pulse Resp BP BP Pulse Ox Pulse Ox 01/24/21 16:05 102 H 18 111/68 97 01/24/21 13:22 81 L 01/24/21 07:51 36.7 C 89 16 123/69 94 all noted and reviewed including below
[2021-01-24] MEDS: ASPIRIN 81 MG ECTAB PO SCH (18:19)
[2021-01-24] MEDS: ENOXAPARIN INJ 40 MG/0.4 ML SYR SQ SCH (18:20)
[2021-01-24] MEDS: ESCITALOPRAM OXALATE 20 MG TAB PO SCH (20:32)
[2021-01-24] MEDS: traZODone HCL 100 MG TAB PO SCH (20:32)
[2021-01-24] MEDS: DOCUSATE SODIUM/SENNA 50/8.6MG TAB PO SCH (20:32)
[2021-01-24] MEDS: METOPROLOL SUCC 25MG EXT REL TAB PO SCH (20:32)
[2021-01-25] MEDS: traMADol HCL 50 MG TABLET PO PRN (00:43)
[2021-01-25] MEDS: ACETAMINOPHEN 500 MG TAB PO SCH ×4 (03:58→22:15)
[2021-01-25] MEDS: CHOLECALCIFEROL 1,000 UNITS 25 MCG TAB PO SCH (08:07)
[2021-01-25] MEDS: HYDROCODONE/ACETAMOPHEN 5/325MG TAB PO PRN (08:07)
[2021-01-25] MEDS: RALOXIFENE HCL 60 MG TAB PO SCH (08:07)
[2021-01-25] MEDS: ATORVASTATIN 40 MG TAB PO SCH (08:07)
[2021-01-25] MEDS: ASPIRIN 81 MG ECTAB PO SCH (08:08)
[2021-01-25] MEDS: ISOSORBIDE MONO EXTENDED REL 30 MG TABCR PO SCH ×2 (08:08→22:14)
--- NOTE | 2021-01-25 09:54 | Orthopedic Progress Note ---
Date of Service January 25, 2021 Assessment & Plan (1) Closed intertrochanteric fracture of right hip: Plan: POD #2 s/p right TFN Acute blood loss anemia-recheck H&H this morning. PT/OT TTWB with walker she can resume her ASA and begin Lovenox this evening CM for rehab placement Admission and Anticipated Discharge Date Admission Date: January 22, 2021 Subjective Postop day 2 Patient sitting in her chair at the bedside. Nursing is currently taking care of her needs. She states that the hip is painful with getting out of bed. Currently the pain is controlled at rest. No other complaints this morning. Wants to talk to case management to decide where she can go for rehab. Physical Exam Physical Exam: Dressings are clean, dry, and intact. Thigh does have some swelling which is consistent with surgery and fracture. No erythema. Thigh is soft and nontender. Calves are soft nontender. Neurovascular is intact. Toes are mobile. Results & Data ([facility]) Vital Signs (Past 12 Hours) Vital Signs Temp Pulse Resp BP BP Pulse Ox 01/25/21 07:54 94 01/25/21 07:40 84 L 01/25/21 07:34 97 01/25/21 07:15 37 C 101 H 16 155/76 H 92 01/24/21 22:37 37.6 C H 95 H 18 122/71 98 (1) Closed intertrochanteric fracture of right hip Encounter type: initial encounter Fracture alignment: displaced Qualified Code(s): S72.141A - Displaced intertrochanteric fracture of right femur, initial encounter for closed fracture
[2021-01-25 10:30] LABS: Hematocrit (blood only) 27.9 % (37-47); Mean Corpuscular Hgb Conc 32.3 g/dL (32-36); Mean Corpuscular Volume 96.2 fL (80-100); Mean Platelet Volume 10.7 fL (7.4-10.4); Platelet Count 168 K/uL (130-400); RDW Coefficient of Variation 14.3 % (11.5-14.5); RDW Standard Deviation 50.5 fL (36.4-46.3); White Blood Count 13.21 K/uL (4.8-10.8)
[2021-01-25 10:48] LABS: BUN Creatinine Ratio 14.4 (10-20); Calcium 8.4 mg/dl (8.5-10.1); Creatinine Clr Calc Pharmacy 50.8 ml/min; Est GFR (African American) 71.9 ml/min; Potassium 3.4 mmol/L (3.5-5.1)
--- NOTE | 2021-01-25 11:51 | Hospitalist Progress Note ---
Date of Service January 25, 2021 Assessment & Plan (1) Closed right hip fracture: Plan: This is an 85-year-old female with PMH of CAD, hypertension, dyslipidemia, CKD 3, anxiety and depression who presents after fall outside of grocery store on day of admission Right hip/pelvis XR with acute intertrochanteric fracture of the right femur Head CT, cervical spine CT, R knee XR without evidence of acute abnormality or injury CXR without acute cardiopulmonary abnormality, EKG with normal sinus rhythm S/P Hip ORIF with TFN POD # [address] Rahat ARENAS 20ml wound/pain management per orthopedics activity and therapy per ortho - TTWB continue to encourage incentive spirometry - discussed with nursing currently attempting to wean O2 Anemia suspect acute blood loss and dilutional along with possible chronic component h/h 9.0 and 27.9 today; 12.4 on admission but likely hemoconcentrated Hypoxia continue to encourage ISP lungs are clear wean O2 as able CXR - no acute abnormality still remains 88% on room air, O2 re applied d-dimer ordered 2/2 to tachycardia - elevated CTA ordered and pending Leucocytosis wbc 13.21 today, may be reactive in setting of hypoxia chest xray negative awaiting urine Hypokalemia K 3.4 replace monitor (2) CAD (coronary artery disease): Plan: History of mild to moderate three-vessel coronary disease on 2014 cardiac catheterization, medically managed No cardiac symptoms Continue Imdur, Toprol, statin, ranexa May resume aspirin per Ortho service (3) HTN (hypertension): Plan: BP improving continue metoprolol As needed hydralazine ordered but has not required since 01/22 (4) CKD (chronic kidney disease), stage III: Plan: Baseline creatinine around 1 Stable (5) Dyslipidemia: Plan: Continue statin (6) Depression: (7) Anxiety: Plan: Continue Escitalopram, trazodone at bedtime DVT Ppx: SQ Lovenox Code status: DNR per discussion with patient PCP: Arlene Dispo: PT and OT evaluation; awaiting rehab Patient was seen and examined in collaboration with Dr. Darby, please see addendum Please contact via [place] text with questions or concerns to Amy Kemp). Admission and Anticipated Discharge Date Admission Date: January 22, 2021 Supervising Physician Co-Signing Physician Notes 85-year-old woman with CAD, hypertension, dyslipidemia, anxiety and depression who presents after a fall was found to have right acute intertrochanteric fracture of the right femur. Status post ORIF Patient seen and examined Reports pain with activity in the right hip. Reports some dry cough. Has continued to require oxygen. Physical exam notable for clean dressing over surgical site Lab work notable for potassium of 3.4. In view of persistent oxygen requirement with hypoxia on weaning trial, chest x- ray did not show any acute findings, D-dimer was obtained which was elevated. CT PE showed few scattered bilateral PE within the segmental and subsegmental pulmonary arteries without right heart strain. Stop prophylactic Lovenox. Start patient on Eliquis for PE PE provoked in the setting of fall with hip fracture and surgery. Will need anticoagulation for at least 3 months Fall precautions Continue oxygen supplementation and wean as tolerated Monitor hemoglobin while anticoagulation Agree with other plans as detailed by Amy Mace PA-C Subjective Patient was seen and examined in room 304-1. Follow up R hip fx s/p TFN POD #2. She offers no acute concerns. She is having difficulty with ambulating given recent surgery and TTWB status. She denies f/c/s, dizziness, chest pain, sob, n/v/d, abd pain. Started with dry cough today. Describes it as a tickle. Continues to require O2. Appetite has been good. +BM yesterday. Review of Systems Review of Systems: All systems reviewed & are unremarkable except as noted in HPI & below Physical Exam Physical Exam: Gen: WD/WN, F, sitting up in bedside chair, NAD, A&O x3 HEENT: Normocephalic, atraumatic, conjunctivae moist, sclerae anicteric, mucous membranes moist. Lung: Clear to Auscultation bilaterally, no wheezes/rales/rhonchi on O2 via NC 1L Heart: Regular rate, regular rhythm, 2/6 DEMETRIS RUSB, no rubs, or gallops Abdomen: Soft, NT, ND +BS x 4 Extremities: No edema Skin: Warm, no rash, negative turgor. Results & Data Results & Data ([facility]) Vital Signs (Past 12 Hours) Vital Signs Temp Pulse Resp BP Pulse Ox 01/25/21 07:54 94 01/25/21 07:40 84 L 01/25/21 07:34 97 10/04/21 07:15 37 C 101 H 16 155/76 H 92 Laboratory Results Short CBC 01/25/21 Range/Units 10:09 WBC 13.21 H (4.8-10.8) K/uL Hgb 9.0 L (12.0-16.0) g/dL Hct 27.9 L (37-47) % Plt Count 168 (130-400) K/uL BMP 01/25/21 10:09 Sodium 142 Potassium 3.4 L Chloride 109 H Carbon Dioxide 25 BUN 12 Creatinine 0.86 Glucose 145 H Calcium 8.4 L Medications Administered Current Inpatient Medications Acetaminophen (Acetaminophen 500 Mg Tab) 500 mg PO Q6H [facility] Stop: 02/22/21 16:59 Last Admin: 01/25/21 11:30 Dose: 500 mg Documented by: Hydrocodone Bitart/Acetaminophen (Hydrocodone/Acetamophen 5/325mg Tab) 1 tab PO Q6H PRN PRN Reason: Moderate Pain Stop: 02/06/21 13:19 Last Admin: 01/25/21 08:07 Dose: 1 tab Documented by: Aspirin (Aspirin 81 Mg Ectab) 81 mg PO QAM [facility] Stop: 02/23/21 17:59 Last Admin: 01/25/21 08:08 Dose: 81 mg Documented by: Atorvastatin Calcium (Atorvastatin 40 Mg Tab) 40 mg PO DAILY I[facility]AN Stop: 02/22/21 08:59 Last Admin: 01/25/21 08:07 Dose: 40 mg Documented by: Bisacodyl (Bisacodyl 10 Mg Supp) 10 mg SD DAILY PRN PRN Reason: Constipation Stop: 02/21/21 19:42 Enoxaparin Sodium (Enoxaparin Inj 40 Mg/0.4 Ml Syr) 40 mg SQ Q24H [facility] Stop: 02/23/21 17:59 Last Admin: 01/24/21 18:20 Dose: 40 mg Documented by: Escitalopram Oxalate (Escitalopram Oxalate 20 Mg Tab) 20 mg PO HS I[facility]AN Stop: 02/21/21 20:59 Last Admin: 01/24/21 20:32 Dose: 20 mg Documented by: Hydralazine HCl (Hydralazine Hcl 20 Mg/Ml Vial) 5 mg IV Q6 PRN PRN Reason: SBP >160 Stop: 02/21/21 16:50 Last Admin: 01/22/21 18:44 Dose: 5 mg Documented by: Isosorbide Mononitrate (Isosorbide [place] Extended Rel 30 Mg Tabcr) 30 mg PO BID I[facility]AN Stop: 02/21/21 20:59 Last Admin: 01/25/21 08:08 Dose: 30 mg Documented by: Magnesium Hydroxide (Magnesium Hydroxide Susp 30 Ml Udc) 30 ml PO DAILY PRN PRN Reason: Constipation Stop: 02/21/21 19:42 Metoprolol Succinate (Metoprolol Succ 25mg Ext Rel Tab) 25 mg PO HS I[facility]AN Stop: 02/21/21 20:59 Last Admin: 01/24/21 20:32 Dose: 25 mg Documented by: Naloxone HCl (Naloxone Hcl 0.4 Mg/1 Ml Vial/Carp) 0.1 mg IV UD PRN PRN Reason: Opiate Overdose Stop: 02/21/21 19:42 Naloxone HCl (Naloxone Hcl 0.4 Mg/1 Ml Vial/Carp) 0.1 mg IV Q5M PRN PRN Reason: Oversedation/Resp depression Stop: 02/22/21 11:08 Ondansetron HCl (Ondansetron Inj 2 Mg/Ml 2 Ml Vial) 4 mg IV Q6H PRN PRN Reason: Nausea And Vomiting Stop: 02/21/21 19:42 Potassium Chloride (Potassium Chloride Crtab 20 Meq Tabcr) 40 meq PO NOW STA Stop: 01/25/21 11:57 Raloxifene HCl (Raloxifene Hcl 60 Mg Tab) 60 mg PO DAILY I[facility]AN Stop: 02/22/21 08:59 Last Admin: 01/25/21 08:07 Dose: 60 mg Documented by: Senna/Docusate Sodium (Docusate Sodium/Senna 50/8.6mg Tab) 2 tab PO HS I[facility]AN Stop: 02/21/21 20:59 Last Admin: 01/24/21 20:32 Dose: Not Given Documented by: Tramadol HCl (Tramadol Hcl 50 Mg Tablet) 50 mg PO Q4H PRN PRN Reason: MODERATE Pain (4,5,6) & Pre PT Stop: 02/21/21 19:42 Last Admin: 01/25/21 00:43 Dose: 50 mg Documented by: Trazodone HCl (Trazodone Hcl 100 Mg Tab) 200 mg PO HS IHSAN Stop: 02/21/21 20:59 Last Admin: 01/24/21 20:32 Dose: 200 mg Documented by: Vitamin D (Cholecalciferol 1,000 Units 25 Mcg Tab) 1,000 units PO DAILY I[facility]AN Stop: 02/22/21 08:59 Last Admin: 01/25/21 08:07 Dose: 1,000 units Documented by:
[2021-01-25] MEDS ORDERED: POTASSIUM CHLORIDE CRTAB 20 MEQ TABCR PO STA (11:56)
--- NOTE | 2021-01-25 12:32 | XRay Report ---
XR chest 1V portable INDICATION: MN ^hypoxia. TECHNIQUE: Single frontal radiograph of the chest was obtained. Comparison: None available at the time of this dictation. FINDINGS: No lines and tubes are seen. The cardiomediastinal silhouette is normal. The lungs are clear. No evid ence of pleural effusion or pneumothorax. IMPRESSION: No acute chest disease. ACT 112: Negative or not required by law. Electronically signed by: Kameron Gillette M.D. 01/25/2021 12:30 PM
[2021-01-25 15:16] LABS: D Dimer 3920 ug/L FEU (0-500)
[2021-01-25] MEDS ORDERED: OPTIRAY 320 125ml IV ONE (16:29)
--- NOTE | 2021-01-25 16:59 | CT Scan Report ---
CHEST CTA for PULMONARY ARTERIES CT DOSE: 459.10 mGy.cm HISTORY: Hypoxia. Assess for pulmonary embolus. TECHNIQUE: Multiaxial CT images of the chest were performed following the intravenous administration of contrast to evaluate the pulmonary arteries. Maximal intensity projection images were also obtaine d. A dose lowering technique was utilized adhering to the principles of ALARA. COMPARISON STUDY: None. FINDINGS: Normal caliber thoracic aorta with no evidence for dissection. The heart is normal in size. No pleural or pericardial effusions. No evidence for right-sided heart strain. A few scattered filli ng defects seen within the segmental and subsegmental branches of the left upper lobe and right middl e lobe consistent with pulmonary emboli. Limited views of the upper abdomen demonstrate a normal live r, spleen, left adrenal gland. There is 1.6 cm right adrenal gland nodule. There is a 2.9 cm left pos terior thyroid nodule which abuts the esophagus. Normal esophagus. No suspicious lytic or blastic oss eous lesions. Degenerative changes within the bilateral shoulders with a left shoulder fusion. No pne umothorax. The central airways are patent. Mosaic attenuation within the lungs with interstitial thic kening. This is likely chronic. Otherwise, no focal lung consolidations to suggest pneumonia. No evid ence for pulmonary edema. IMPRESSION: 1. A few scattered bilateral pulmonary emboli within the segmental and subsegmental pulmonary arterie s. No evidence for right-sided heart strain. 2. An indeterminate 1.3 cm right adrenal gland nodule. 3. A 2.9 cm left posterior thyroid nodule which is posterior to the trachea. 4. Mild diffuse interstitial thickening within the lungs with a mosaic attenuation throughout the yue gs. This suggests chronic interstitial lung disease. No focal lung consolidations to suggest pneumoni a. ACT 112: Negative or not required by law. Electronically signed by: Harlan Belle M.D. 01/25/2021 4:57 PM
[2021-01-25] MEDS: ENOXAPARIN INJ 40 MG/0.4 ML SYR SQ SCH (17:09)
[2021-01-25] MEDS: APIXABAN 5 MG TABLET PO SCH (18:43)
[2021-01-25] MEDS: DOCUSATE SODIUM/SENNA 50/8.6MG TAB PO SCH (19:58)
[2021-01-25] MEDS: ESCITALOPRAM OXALATE 20 MG TAB PO SCH (20:00)
[2021-01-25] MEDS: METOPROLOL SUCC 25MG EXT REL TAB PO SCH (20:02)
[2021-01-25] MEDS: traZODone HCL 100 MG TAB PO SCH (22:13)
[2021-01-26] MEDS: ACETAMINOPHEN 500 MG TAB PO SCH ×2 (05:52→11:53)
[2021-01-26 06:26] LABS: Basophils # (auto) 0.01 K/uL (0-0.2); Basophils % (auto) 0.1 %; Eosinophils # (auto) 0.22 K/uL (0-0.5); Eosinophils % (auto) 2.6 %; Hematocrit (blood only) 25.1 % (37-47); Hemoglobin 8.2 g/dL (12.0-16.0); Immature Granulocytes # (auto) 0.03 K/uL (0.00-0.02); Immature Granulocytes % (auto) 0.4 %; Lymphocytes # (auto) 2.45 K/uL (1.2-3.4); Lymphocytes % (auto) 29.2 %; Mean Corpuscular Hemoglobin 31.4 pg (25-34); Mean Corpuscular Hgb Conc 32.7 g/dL (32-36); Mean Corpuscular Volume 96.2 fL (80-100); Mean Platelet Volume 10.2 fL (7.4-10.4); Monocytes # (auto) 0.49 K/uL (0.11-0.59); Monocytes % (auto) 5.8 %; Neutrophils # (auto) 5.18 K/uL (1.4-6.5); Neutrophils % (auto) 61.9 %; Platelet Count 150 K/uL (130-400); RDW Coefficient of Variation 14.6 % (11.5-14.5); RDW Standard Deviation 50.5 fL (36.4-46.3); Red Blood Count 2.61 M/uL (4.2-5.4); White Blood Count 8.38 K/uL (4.8-10.8)
[2021-01-26 07:25] LABS: BUN Creatinine Ratio 23.6 (10-20); Calcium 8.8 mg/dl (8.5-10.1); Creatinine Clr Calc Pharmacy 68.3 ml/min; Est GFR (Non-African American) 81.9 ml/min; Potassium 4.2 mmol/L (3.5-5.1)
[2021-01-26] MEDS: APIXABAN 5 MG TABLET PO SCH (08:59)
[2021-01-26] MEDS: ATORVASTATIN 40 MG TAB PO SCH (08:59)
[2021-01-26] MEDS: ASPIRIN 81 MG ECTAB PO SCH (08:59)
[2021-01-26] MEDS: RALOXIFENE HCL 60 MG TAB PO SCH (09:00)
[2021-01-26] MEDS: ISOSORBIDE MONO EXTENDED REL 30 MG TABCR PO SCH (09:00)
[2021-01-26] MEDS: CHOLECALCIFEROL 1,000 UNITS 25 MCG TAB PO SCH (09:00)
[2021-01-26] MEDS: traMADol HCL 50 MG TABLET PO PRN (09:03)
--- NOTE | 2021-01-26 09:12 | Orthopedic Progress Note ---
Date of Service January 26, 2021 Assessment & Plan (1) Closed intertrochanteric fracture of right hip: Plan: POD #3 s/p right TFN Acute blood loss anemia-hemoglobin recheck was 9.0 yesterday. 8.2 this morning. PT/OT TTWB with walker she can resume her ASA and begin Lovenox this evening CM for rehab placement Orthopedics will sign off at this time. Discharge instructions were placed in the DC instructions section. Please call with any questions. Admission and Anticipated Discharge Date Admission Date: January 22, 2021 Subjective Postop day 3 Patient sitting up in chair at her bedside. No complaints this morning. Pain controlled at rest. Discussing with case management about [facility] facility placement. Physical Exam Physical Exam: Dressings are clean, dry, and intact. Thigh has some mild swelling consistent with surgery but is soft and nontender. Calves are soft nontender. Neurovascular intact. Toes are mobile. Results & Data ([facility]) Vital Signs (Past 12 Hours) Vital Signs Temp Pulse Pulse Resp BP BP Pulse Ox 01/26/21 07:05 36.5 C 95 H 18 160/80 H 98 01/26/21 00:11 135/75 01/25/21 22:10 36.7 C 95 H 16 169/87 H 99 (1) Closed intertrochanteric fracture of right hip Encounter type: initial encounter Fracture alignment: displaced Qualified Code(s): S72.141A - Displaced intertrochanteric fracture of right femur, initial encounter for closed fracture
--- NOTE | 2021-01-26 12:02 | Hospitalist Progress Note ---
Date of Service January 26, 2021 Assessment & Plan (1) Closed right hip fracture: Plan: This is an 85-year-old female with PMH of CAD, hypertension, dyslipidemia, CKD 3, anxiety and depression who presents after fall outside of grocery store on day of admission. Right hip/pelvis XR with acute intertrochanteric fracture of the right femur Head CT, cervical spine CT, R knee XR without evidence of acute abnormality or injury CXR without acute cardiopulmonary abnormality, EKG with normal sinus rhythm S/P Hip ORIF with TFN POD # [address] Giang EBDianne 20ml wound/pain management per orthopedics activity and therapy per ortho - TTWB continue to encourage incentive spirometry -oxygen has been weaned, 95% RA during my eval Anemia suspect acute blood loss and dilutional along with possible chronic component hgb 8.2 today; 12.4 on admission but likely hemoconcentrated Hypoxia continue to encourage ISP lungs are clear O2 attempting to be weaned, fluctuating between RA and 1L CXR - no acute abnormality CTA chest: 1. A few scattered bilateral pulmonary emboli within the segmental and subsegmental pulmonary arteries. No evidence for right-sided heart strain. Eliquis started Leucocytosis resolved, likely reactive in setting of surgery/PE Hypokalemia K 4.2 replaced (2) Pulmonary embolism: Plan: provoked in setting of post op hip surgery Eliquis started 10mg twice daily x 7 days then 5mg twice daily for at least 3 months First Dose 01/25/21 18:43 (3) CAD (coronary artery disease): Plan: History of mild to moderate three-vessel coronary disease on 2014 cardiac catheterization, medically managed No cardiac symptoms Continue Imdur, Toprol, statin, ranexa May resume aspirin per Ortho service (4) HTN (hypertension): Plan: BP labile continue metoprolol, likely elevated in setting of pain As needed hydralazine ordered but has not required since 01/22 (5) CKD (chronic kidney disease), stage III: Plan: Baseline creatinine around 1 Stable (6) Dyslipidemia: Plan: Continue statin (7) Depression: (8) Anxiety: Plan: Continue Escitalopram, trazodone at bedtime DVT Ppx: SQ Lovenox Code status: DNR per discussion with patient PCP: Arlene Dispo: awaiting rehab Patient was seen and examined in collaboration with Dr. Darby, please see addendum Admission and Anticipated Discharge Date Admission Date: January 22, 2021 Supervising Physician Co-Signing Physician Notes 85-year-old woman with CAD, hypertension, dyslipidemia, anxiety and depression who presents after a fall was found to have right acute intertrochanteric fracture of the right femur. Status post ORIF Patient seen and examined Reports pain with activity in the right hip. Reports some dry cough. Has continued to require oxygen. Physical exam notable for clean dressing over surgical site Lab work notable for Hb of 8.2 In view of persistent oxygen requirement with hypoxia on weaning trial, chest x- ray did not show any acute findings, D-dimer was obtained which was elevated. CT PE showed few scattered bilateral PE within the segmental and subsegmental pulmonary arteries without right heart strain. Started on Eliquis for PE PE provoked in the setting of fall with hip fracture and surgery. Will need anticoagulation for at least 3 months Hb was 11 on 01/23/21 prior to OR and dropped and been stable in 8-9 Likely post op anemia due acute blood loss Patient has fall outside grocery store with fracture. Imaging also show osteopenia Osteoporotic right femoral fracture On vit D Fall precautions Continue oxygen supplementation and wean as tolerated Monitor hemoglobin while anticoagulation Agree with other plans as detailed by Amy Mace PA-C Subjective Pt was seen and examined in room 304-1. Follow up R hip fx s/p orif and TFN POD #3 and newly dx PE. She is sitting up in bedside chair w/o complaint. Denies f/c/s, chest pain, sob, n/v/d, abdominal pain. Complained of dry cough yesterday, but has not noticed that yet today. Had BM yesterday. Review of Systems Review of Systems: All systems reviewed & are unremarkable except as noted in HPI & below Physical Exam Physical Exam: Gen: WD/WN, F, sitting up in bedside chair, NAD, A&O x3 but mildly confused from yesterday exam HEENT: Normocephalic, atraumatic, conjunctivae moist, sclerae anicteric, mucous membranes moist. Lung: Clear to Auscultation bilaterally, no wheezes/rales/rhonchi on O2 via NC 1L Heart: Regular rate, regular rhythm, 2/6 DEMETRIS RUSB, no rubs, or gallops Abdomen: Soft, NT, ND +BS x 4 Extremities: No edema, R hip dressing CDI Skin: Warm, no rash, negative turgor. Results & Data Results & Data ([facility]) Vital Signs (Past 12 Hours) Vital Signs Temp Pulse Resp BP Pulse Ox 01/26/21 07:05 36.5 C 95 H 18 160/80 H 98 01/26/21 00:11 135/75 Laboratory Results Short CBC 01/26/21 Range/Units 05:38 WBC 8.38 (4.8-10.8) K/uL Hgb 8.2 L (12.0-16.0) g/dL Hct 25.1 L (37-47) % Plt Count 150 (130-400) K/uL BMP 01/26/21 05:38 Sodium 143 Potassium 4.2 D Chloride 111 H Carbon Dioxide 27 BUN 15 Creatinine 0.64 Glucose 103 H Calcium 8.8 Diagnostic Findings Chest X-Ray 01/25/21 11:51 XR chest 1V portable INDICATION: MN ^hypoxia. TECHNIQUE: Single frontal radiograph of the chest was obtained. Comparison: None available at the time of this dictation. FINDINGS: No lines and tubes are seen. The cardiomediastinal silhouette is normal. The lungs are clear. No evidence of pleural effusion or pneumothorax. IMPRESSION: No acute chest disease. ACT 112: Negative or not required by law. Electronically signed by: Kameron Gillette M.D. 01/25/2021 12:30 PM Chest CTA 01/25/21 15:20 CHEST CTA for PULMONARY ARTERIES CT DOSE: 459.10 mGy.cm HISTORY: Hypoxia. Assess for pulmonary embolus. TECHNIQUE: Multiaxial CT images of the chest were performed following the intravenous administration of contrast to evaluate the pulmonary arteries. Maximal intensity projection images were also obtained. A dose lowering technique was utilized adhering to the principles of ALARA. COMPARISON STUDY: None. FINDINGS: Normal caliber thoracic aorta with no evidence for dissection. The heart is normal in size. No pleural or pericardial effusions. No evidence for right-sided heart strain. A few scattered filling defects seen within the segmental and subsegmental branches of the left upper lobe and right middle lobe consistent with pulmonary emboli. Limited views of the upper abdomen demonstrate a normal liver, spleen, left adrenal gland. There is 1.6 cm right adrenal gland nodule. There is a 2.9 cm left posterior thyroid nodule which abuts the esophagus. Normal esophagus. No suspicious lytic or blastic osseous lesions. Degenerative changes within the bilateral shoulders with a left shoulder fusion. No pneumothorax. The central airways are patent. Mosaic attenuation within the lungs with interstitial thickening. This is likely chronic. Otherwise, no focal lung consolidations to suggest pneumonia. No evidence for pulmonary edema. IMPRESSION: 1. A few scattered bilateral pulmonary emboli within the segmental and subsegmental pulmonary arteries. No evidence for right-sided heart strain. 2. An indeterminate 1.3 cm right adrenal gland nodule. 3. A 2.9 cm left posterior thyroid nodule which is posterior to the trachea. 4. Mild diffuse interstitial thickening within the lungs with a mosaic attenuation throughout the lungs. This suggests chronic interstitial lung disease. No focal lung consolidations to suggest pneumonia. ACT 112: Negative or not required by law. Electronically signed by: Harlan Belle M.D. 01/25/2021 4:57 PM Medications Administered Current Inpatient Medications Acetaminophen (Acetaminophen 500 Mg Tab) 500 mg PO Q6H [facility] Stop: 02/22/21 16:59 Last Admin: 01/26/21 11:53 Dose: 500 mg Documented by: Hydrocodone Bitart/Acetaminophen (Hydrocodone/Acetamophen 5/325mg Tab) 1 tab PO Q6H PRN PRN Reason: Moderate Pain Stop: 02/06/21 13:19 Last Admin: 01/25/21 08:07 Dose: 1 tab Documented by: Apixaban (Apixaban 5 Mg Tablet) 10 mg PO BID [facility] Stop: 02/01/21 09:01 Last Admin: 01/26/21 08:59 Dose: 10 mg Documented by: Apixaban (Apixaban 5 Mg Tablet) 5 mg PO BID [facility] Stop: 03/03/21 20:59 Aspirin (Aspirin 81 Mg Ectab) 81 mg PO QAM [facility] Stop: 02/23/21 17:59 Last Admin: 01/26/21 08:59 Dose: 81 mg Documented by: Atorvastatin Calcium (Atorvastatin 40 Mg Tab) 40 mg PO DAILY [facility] Stop: 02/22/21 08:59 Last Admin: 01/26/21 08:59 Dose: 40 mg Documented by: Bisacodyl (Bisacodyl 10 Mg Supp) 10 mg [place] DAILY PRN PRN Reason: Constipation Stop: 02/21/21 19:42 Escitalopram Oxalate (Escitalopram Oxalate 20 Mg Tab) 20 mg PO HS [facility] Stop: 02/21/21 20:59 Last Admin: 01/25/21 20:00 Dose: 20 mg Documented by: Hydralazine HCl (Hydralazine Hcl 20 Mg/Ml Vial) 5 mg IV Q6 PRN PRN Reason: SBP >160 Stop: 02/21/21 16:50 Last Admin: 01/22/21 18:44 Dose: 5 mg Documented by: Isosorbide Mononitrate (Isosorbide Cocke Extended Rel 30 Mg Tabcr) 30 mg PO BID [facility] Stop: 02/21/21 20:59 Last Admin: 01/26/21 09:00 Dose: 30 mg Documented by: Magnesium Hydroxide (Magnesium Hydroxide Susp 30 Ml Udc) 30 ml PO DAILY PRN PRN Reason: Constipation Stop: 02/21/21 19:42 Metoprolol Succinate (Metoprolol Succ 25mg Ext Rel Tab) 25 mg PO HS [facility] Stop: 02/21/21 20:59 Last Admin: 01/25/21 20:02 Dose: 25 mg Documented by: Naloxone HCl (Naloxone Hcl 0.4 Mg/1 Ml Vial/Carp) 0.1 mg IV UD PRN PRN Reason: Opiate Overdose Stop: 02/21/21 19:42 Naloxone HCl (Naloxone Hcl 0.4 Mg/1 Ml Vial/Carp) 0.1 mg IV Q5M PRN PRN Reason: Oversedation/Resp depression Stop: 02/22/21 11:08 Ondansetron HCl (Ondansetron Inj 2 Mg/Ml 2 Ml Vial) 4 mg IV Q6H PRN PRN Reason: Nausea And Vomiting Stop: 02/21/21 19:42 Raloxifene HCl (Raloxifene Hcl 60 Mg Tab) 60 mg PO DAILY [facility] Stop: 02/22/21 08:59 Last Admin: 01/26/21 09:00 Dose: 60 mg Documented by: Senna/Docusate Sodium (Docusate Sodium/Senna 50/8.6mg Tab) 2 tab PO HS [facility] Stop: 02/21/21 20:59 Last Admin: 01/25/21 19:58 Dose: Not Given Documented by: Tramadol HCl (Tramadol Hcl 50 Mg Tablet) 50 mg PO Q4H PRN PRN Reason: MODERATE Pain (4,5,6) & Pre PT Stop: 02/21/21 19:42 Last Admin: 01/26/21 09:03 Dose: 50 mg Documented by: Trazodone HCl (Trazodone Hcl 100 Mg Tab) 200 mg PO HS [facility] Stop: 02/21/21 20:59 Last Admin: 01/25/21 22:13 Dose: 200 mg Documented by: Vitamin D (Cholecalciferol 1,000 Units 25 Mcg Tab) 1,000 units PO DAILY [facility] Stop: 02/22/21 08:59 Last Admin: 01/26/21 09:00 Dose: 1,000 units Documented by:
--- NOTE | 2021-01-26 13:21 | Discharge Summary ---
Date of Service January 26, 2021 Admission HPI Per Admitting Provider This is an 85-year-old female with PMH of CAD, hypertension, dyslipidemia, CKD 3, anxiety and depression who presents after fall outside of grocery store earlier today. Patient took the bus to go grocery shopping at [employer] and was outside of the store getting a cart when she lost her footing and tripped, landing on her right side. Denies any loss of consciousness or head trauma. Was brought to ER by EMS for further evaluation. Currently endorsing 5/10 aching pain in thigh area of right leg radiating into groin. Denies any chest pain, shortness of breath, nausea or vomiting. No fever, chills, lightheadedness, headache, abdominal pain, dysuria, diarrhea constipation. History of left hip fracture a few years ago repaired by [facility]. Lives alone in an apartment and feels she has become more forgetful over the past year. Admission Exam Per Admitting Provider General Appearance: WD/WN, vitals as above, NAD, sitting up in bed, pleasant, conversing easily Head: normocephalic, atraumatic Eyes: normal inspection, PERRL, conjunctivae normal, anicteric sclerae ENT: external ear and nose normal, oropharynx normal Neck: normal visual inspection, trachea midline, no thyromegaly Respiratory: normal respiratory effort, lungs clear to auscultation, no wheeze, rales, rhonchi. No accessory muscle use Cardiovascular: regular rate, rhythm, no murmur, normal peripheral pulses, no BLE edema. Vessels: no JVD Chest: normal inspection of chest Abdomen/GI: normal bowel sounds, soft, nontender, no hepatosplenomegaly Extremities/Musculoskeletal: R leg externally rotated, TTP along medial aspect of thigh. No deformities noted. No cyanosis or clubbing, extremities motor strength 5/5 Neurologic: PERRL, EOMI, accommodation nl, no face palsy, no dysarthria, CN's II-XI intact bilaterally and moves all extremities Psychiatric: A+Ox3, euthymic affect Skin: no rashes, normal color, warm/dry Principal Diagnosis Closed right hip fracture Osteoporotic fracture Postoperative anemia Pulmonary embolism Hypoxia Hypertension Discharge Exam Gen: WD/WN, F, sitting up in bedside chair, NAD, A&O x3 but mildly confused from yesterday exam HEENT: Normocephalic, atraumatic, conjunctivae moist, sclerae anicteric, mucous membranes moist. Lung: Clear to Auscultation bilaterally, no wheezes/rales/rhonchi on O2 via NC 1L Heart: Regular rate, regular rhythm, 2/6 DEMETRIS RUSB, no rubs, or gallops Abdomen: Soft, NT, ND +BS x 4 Extremities: No edema, R hip dressing CDI Skin: Warm, no rash, negative turgor Discharge Data Allergies Allergy/AdvReac Type Severity Reaction Status Date / Time No Known Allergies Allergy Unverified 01/22/21 15:57 Consultations Orthopedics: Assessment & Plan (1) Closed intertrochanteric fracture of right hip: Plan: POD #2 s/p right TFN Acute blood loss anemia-recheck H&H this morning. PT/OT TTWB with walker Procedures Performed Operation Date: 01/23/21 08:00 Actual Procedures p Open Reduction Internal Fixation Right Intertrochanteric Hip Fracture(Right) - Neto Giang DO s Open Reduction Internal Fixation Femur - Neto Giang DO Ordered Studies Chest X-Ray 01/22/21 13:23 XR chest 1V portable INDICATION: MN ^Y ^Chest Pain . TECHNIQUE: Single frontal radiograph of the chest was obtained. Comparison: Comparison is made to chest one view 05/15/2017 FINDINGS: No lines and tubes are seen. The cardiomediastinal silhouette is normal. The lungs are clear. No evidence of pleural effusion or pneumothorax. IMPRESSION: No acute chest disease. ACT 112: Negative or not required by law. Electronically signed by: Kameron Gillette M.D. 01/22/2021 2:58 PM Hip/Pelvis X-Ray 01/22/21 13:23 XR hip RT 2V w pelvis INDICATION: MN ^JTF ^fall TECHNIQUE: 2 views of the right hip and single frontal view of the pelvis were obtained. Comparison: Comparison is made to pelvis one view 05/15/2017 FINDINGS: There is an acute intertrochanteric fracture of the right femur with apex lateral angulation. Patient is status post left total hip arthroplasty. The bones are anatomically aligned. Bones are osteopenic. Degenerative changes are noted. IMPRESSION: Acute intertrochanteric fracture of the right femur. ACT 112: Negative or not required by law. Electronically signed by: Kameron Gillette M.D. 01/22/2021 2:59 PM Knee X-Ray 01/22/21 13:23 XR knee RT 1 or 2V routine CLINICAL HISTORY: fall. Right knee pain. COMPARISON STUDY: None. FINDINGS: The bones are osteopenic. No acute fracture or dislocation within the right knee. There is a right total knee arthroplasty. The hardware appears intact. Mild anterior soft tissue swelling. No significant knee effusion. IMPRESSION: 1. No fracture or dislocation within the right knee. 2. Right total knee arthroplasty. ACT 112: Negative or not required by law. Electronically signed by: Harlan Belle M.D. 01/22/2021 3:[address] 01/22/21 13:[address] DOSE: 1035.87 mGy.cm HISTORY: fall TECHNIQUE: Multiaxial CT images of the cervical spine were performed and reformatted in the sagittal and coronal plane without the use of contrast. A dose lowering technique was utilized adhering to the principles of ALARA. COMPARISON: None. FINDINGS: No fractures. No subluxation. Prevertebral soft tissues and the C1-C2 interval are intact. No pneumothorax. Multinodular thyroid gland. Dominant nodule within the left lobe measures 3 cm. The C3-C5 vertebral bodies and facets are fused. Moderate degenerative changes throughout the cervical spine. IMPRESSION: 1. No fractures within the cervical spine. 2. Multinodular thyroid gland with a dominant nodule in the left lobe measuring 3 cm. ACT 112: Negative or not required by law. Electronically signed by: Harlan Belle M.D. 01/22/2021 2:[address] 01/22/21 13:54 CT head/brain wo con CLINICAL HISTORY: 85 years-old Female with fall. Acute head injury status post fall TECHNIQUE: Multiple axial CT images of the head were obtained without contrast. A dose lowering technique was utilized adhering to the principles of ALARA. COMPARISON: CT cervical spine of same day FINDINGS: No acute intracranial hemorrhage, midline shift, intracranial mass, hydrocephalus, territorial ischemia or abnormal extra-axial collection. Age- related involutional changes. Cerebral vascular calcifications. White matter hypodensities suggestive of chronic microvascular ischemic disease. The calvarium is intact. Prior bilateral lens repair. The paranasal sinuses, mastoid air cells, and middle ear cavities are clear. IMPRESSION: No acute intracranial abnormality or calvarial fracture. ACT 112: Negative or not required by law. The above report was generated using voice recognition software. It may contain grammatical, syntax or spelling errors. Electronically signed by: Nikhil Acosta M.D. 01/22/2021 2:34 PM Hip X-Ray 01/23/21 08:00 FL hip RT 2-3V CLINICAL HISTORY: RIGHT TROCH NAIL. Right hip fracture. COMPARISON STUDY: None. FLUOROSCOPY TIME: 1 minute and 36 seconds. FINDINGS: 4 fluoroscopic spot images of the right hip demonstrates a short proximal intramedullary femoral annabel within interlocking femoral neck pin traversing the intertrochanteric fracture. The alignment is near-anatomic. The hardware is intact. IMPRESSION: Fluoroscopy provided for internal fixation of a right intertrochanteric femoral fracture. ACT 112: Negative or not required by law. Electronically signed by: Harlan Belle M.D. 01/23/2021 9:34 AM Chest X-Ray 01/25/21 11:51 XR chest 1V portable INDICATION: MN ^hypoxia. TECHNIQUE: Single frontal radiograph of the chest was obtained. Comparison: None available at the time of this dictation. FINDINGS: No lines and tubes are seen. The cardiomediastinal silhouette is normal. The lungs are clear. No evidence of pleural effusion or pneumothorax. IMPRESSION: No acute chest disease. ACT 112: Negative or not required by law. Electronically signed by: Kameron Gillette M.D. 01/25/2021 12:30 PM Chest CTA 01/25/21 15:20 CHEST CTA for PULMONARY ARTERIES CT DOSE: 459.10 mGy.cm HISTORY: Hypoxia. Assess for pulmonary embolus. TECHNIQUE: Multiaxial CT images of the chest were performed following the intravenous administration of contrast to evaluate the pulmonary arteries. Maximal intensity projection images were also obtained. A dose lowering technique was utilized adhering to the principles of ALARA. COMPARISON STUDY: None. FINDINGS: Normal caliber thoracic aorta with no evidence for dissection. The heart is normal in size. No pleural or pericardial effusions. No evidence for right-sided heart strain. A few scattered filling defects seen within the segmental and subsegmental branches of the left upper lobe and right middle lobe consistent with pulmonary emboli. Limited views of the upper abdomen demonstrate a normal liver, spleen, left adrenal gland. There is 1.6 cm right adrenal gland nodule. There is a 2.9 cm left posterior thyroid nodule which abuts the esophagus. Normal esophagus. No suspicious lytic or blastic osseous lesions. Degenerative changes within the bilateral shoulders with a left shoulder fusion. No pneumothorax. The central airways are patent. Mosaic attenuation within the lungs with interstitial thickening. This is likely chronic. Otherwise, no focal lung consolidations to suggest pneumonia. No evidence for pulmonary edema. IMPRESSION: 1. A few scattered bilateral pulmonary emboli within the segmental and subsegmental pulmonary arteries. No evidence for right-sided heart strain. 2. An indeterminate 1.3 cm right adrenal gland nodule. 3. A 2.9 cm left posterior thyroid nodule which is posterior to the trachea. 4. Mild diffuse interstitial thickening within the lungs with a mosaic attenuation throughout the lungs. This suggests chronic interstitial lung disease. No focal lung consolidations to suggest pneumonia. ACT 112: Negative or not required by law. Electronically signed by: Harlan Belle M.D. 01/25/2021 4:57 PM Hospital Course (1) Closed right hip fracture: This is an 85-year-old female with PMH of CAD, hypertension, dyslipidemia, CKD 3, anxiety and depression who presents after fall outside of grocery store on day of admission. X-ray revealed acute intertrochanteric fracture of the right femur. She was cleared for surgery and on 01/23/2021 went to the OR and underwent a right hip ORIF with TFN by Dr. Giang. She is being discharged on postop day 3. She tolerated the procedure well and postop course was complicated by hypoxia. At time of discharge patient was fluctuating between room air and requiring 1L of oxygen to maintain saturation greater than 92%. Subsequently due to hypoxia a CTA of chest was obtained which revealed a few scattered bilateral pulmonary emboli with no evidence of right heart strain. She was started on Eliquis 10 mg twice daily for 7 days and will then transition to 5 mg twice daily for at least 3 months duration of therapy secondary to provoked PE. At time of discharge patient's hemoglobin was 8.2 and creatinine was 0.64. During hospital stay her blood pressure was labile and at discharge was 160/80. She is currently only on metoprolol and no further antihypertensives were initiated. It is recommended she have a follow-up CBC and BMP within 3 days of discharge as well as close monitoring of blood pressure. At time of discharge she was otherwise hemodynamically stable and tolerating diet. In regards to Eliquis administration her first dose was on the evening of 01/25. She will complete 10 mg twice daily at 9 AM on 02/01. She will then transition to 5 mg twice daily on 02/01 at 9 PM. She is to continue all other medications as prescribed. (2) Pulmonary embolism: (3) CAD (coronary artery disease): (4) HTN (hypertension): (5) CKD (chronic kidney disease), stage III: (6) Dyslipidemia: (7) Depression: (8) Anxiety: Total Time Total Time Spent Total Time Spent (In Minutes): 55 minutes Total Time Includes: Examination of the Patient, Discharge Planning, Medication Reconciliation, Communication With Other Providers and Other Discharge Plan Discharge Items Patient Disposition: Transfer [facility] Reason For Visit: R HIP FRACTURE Discharge Diagnosis: R hip fracture s/p repair Provoked Post operative Pulmonary Embolism Hypoxia Post operative Anemia Condition on Discharge: Good Activity: Per Instructions section Weightbearing: Right toe touch Weightbearing Comment: with walker Non-emergency contact: Surgeon Call non-emergency contact if: your pain is not controlled, your temperature is above 101.5, your wound has increased redness and your wound has increased drainage Follow-up/Referrals: Mauricio Jacobs [Primary Care Provider] - Diet: Heart Healthy Addtl Attending Provider Instructions: MEDICATION CHANGES: You were started on Apixaban 10mg twice daily x 7 days; and then 5mg twice daily secondary to pulmonary embolism. You will complete your Apixaban 10mg twice daily on 02/01/21 @ 0900; and then start 5mg daily 02/01/21 @ 2100. You were prescribed hydrocodone-acetaminophen to be taken every 6 hours as needed for pain due to surgery. Recommend taking Senna S, 2 tabs at bed time to prevent constipation while taking pain medications. SUMMARY OF TEST RESULTS/HOSPITALIZATION: You were admitted to hospital due to fracture of your right hip. This was repaired by Dr. Giang on 01/23/21. You tolerated the procedure well. Post operatively you required oxygen and at discharge you were on room air, but have been occasionally requiring 1L of oxygen. A CT of your chest revealed you had a few small blood clots. You were started on a blood thinner Apixaban which you will need to continue for at least 3 months. You will need to discuss with your PCP Dr. Jacobs regarding duration of therapy for Apixaban. PENDING TEST RESULTS: None RECOMMENDATIONS FOR FOLLOW-UP: Please follow up with your PCP Dr. Jacobs upon discharge from rehab. Monitor blood pressure at least twice daily. During hospital stay your blood pressure was occasionally elevated. Encourage repeat cbc and bmp in 3 days after discharge from hospital. Continue all other medications as prescribed. Continue ASA 81mg daily due to history of heart disease Keep scheduled follow up with orthopedics. Orthopedics has attached instructions in this packet regarding their hospital discharge instructions. You are toe touch weight bear status only. Continue to use incentive spirometry. OTHER INSTRUCTIONS: Seek medical attention if you have: * temperature above 101 * chest pain or trouble breathing * abdominal pain, nausea, vomiting * diarrhea, dark stools or bloody stools * any unanswered questions or concerns Call 911 if symptoms are severe. Please take good care of yourself. It has been a pleasure taking care of you. Please take care of yourself. If you have any questions regarding your recent hospitalization please contact [facility] and request [facility] @ [phone]. Amy Mace PA-C Addtl Mixing Machine Tender Provider Instructions: [facility] DISCHARGE INSTRUCTIONS: HIP FRACTURE SELF CARE INSTRUCTIONS: A. You are to ambulate with a walker or crutches for approximately 6 weeks. B. You are TOE TOUCH WEIGHT BEARING on your operative lower extremity for at least 6 weeks. C. Wear low heeled shoes with non-slip soles D. Be sure that your floors are free of things that could trip you throw rugs, electrical cords, and small objects. Avoid wet and waxed floors, especially with crutches/walker/cane. E. Try to walk several times a day with rest periods between. F. You may shower 48 hours after surgery and get the incision area wet, but DO NOT soak or submerge incision area in water. (No baths, swimming pools, hot tubs) G. Change the dressing daily for the first week. Then every other day if wound remains dry. . H. Do NOT apply soap or any ointment/lotions directly over incision. I. You may use ice as needed to operative site. SPECIAL CARE INSTRUCTIONS: VERY IMPORTANT TO READ AND REVIEW A. You may be at risk for phlebitis or blood clots. a. Wear surgical stockings (ALANA hose) for 2 weeks after surgery to improve circulation and reduce swelling. b. Take LOVENOX 40mg SQ daily for 4 weeks or as directed. This is your blood thinner. . B. There are a few signs you need to watch for after you are home. Call [facility] at [phone] if you experience any of the following: a. If you have a temperature of 101 degrees or higher. b. Sudden increase in pain in your hip not relieved by r est or pain medication. c. Any fluid or drainage from the incision; redness of the incision. d. Shortness of breath or chest pain. C. Call your physician if: a. Temperature is greater than 101 degrees (F). b. Pain is not relieved by prescribed pain medications. c. Increase drainage or redness from incision. d. Unanswered questions or concerns. D. Pain Medication: a. You will be prescribed pain medication upon dischar ge that should last till your first post-operative appointment. b. If you experience nausea and/or skin rash, discontinue this medication and contact our office for an alternative medication. c. Caution- narcotic pain medication can cause constipation. FOLLOW UP VISIT: Please call [facility] at [phone] to schedule a follow up appointment 10-14 days from the date of your surgery date. Pending Studies at Discharge: No Stand-Alone Forms: My [facility] Skilled Items Patient informed of condition?: Yes DNR: Yes Discharge Level of Care: Skilled Communicable Disease: No Discharge Prognosis: Stable Lines: None Urinary Catheter: No Medications and DC Order Prescriptions: New sennosides-docusate sodium [Senokot-S] 8.6-50 mg Tablet 2 tab PO HS Qty: 60 RF: 0 Eliquis 5 mg Tablet 10 mg PO BID Qty: 12 RF: 0 Eliquis 5 mg Tablet 5 mg PO BID Qty: 60 RF: 0 hydrocodone-acetaminophen 5-325 mg Tablet 1 tab PO Q6H PRN (Reason: pain) Qty: 14 RF: 0 aspirin 81 mg Tablet,Delayed Release (Dr/Ec) 81 mg PO QAM Qty: 30 RF: 0 Continued atorvastatin 40 mg tablet 40 mg PO DAILY Qty: 30 RF: 0 isosorbide mononitrate 30 mg tablet extended release 24 hr 30 mg PO BID Qty: 30 RF: 0 trazodone 100 mg tablet 200 mg PO HS Qty: 30 RF: 0 raloxifene 60 mg tablet 60 mg PO DAILY Qty: 30 RF: 0 gabapentin 100 mg capsule 100 mg PO HS 30 Days Qty: 30 RF: 0 metoprolol succinate 25 mg tablet extended release 24 hr 25 mg PO HS Qty: 30 RF: 0 escitalopram oxalate 20 mg tablet 20 mg PO HS Qty: 30 RF: 0 cholecalciferol (vitamin D3) [Vitamin D3] 25 mcg (1,000 unit) Tablet 25 mcg PO DAILY Qty: 30 RF: 0 Discharge Orders: Discharge Order (Routine); Ordered 01/26/21 Ordered By: Amy Mace Admission Data Admit Date/Time: 01/22/21 15:36 Attending Provider: Margaret Darby I. Admit Provider: Marcso Pack Primary Care Provider: Mauricio Jacobs Other Providers: Neto Giang ; Marcos Pack ; Daniel Devries ; [facility] Other Interventions: Discharge Summary Assessment (RN) Last Done: 01/26/21 13:12 Supervising Physician Co-Signing Physician Notes Spent 35mins on discharge planning, counselling, med rec
[2021-02-01] MEDS ORDERED: APIXABAN 5 MG TABLET PO SCH (21:00)
== END 2021-01-26 13:48 | DRG 480 ==
LOC: ED 12:55 → 3E 15:36 → SUATTDRO 15:36 → 3E 19:28